=== PATIENT | male | born 1960 | race Two or more races ===

== ENCOUNTER → 2020-12-09 14:25 | Outpatient (BNV) | payer MEDICAID, SELFPAY | PROVIDERS: PCP Family Medicine; Visit Provider Internal Medicine Medical Oncology | DX: Z85.89 Personal history of malignant neoplasm of other organs and systems (principal); Z92.3 Personal history of irradiation | CPT/HCPCS: 99213; 99214 ==

== ENCOUNTER 2020-12-11 09:17 | Outpatient (REF) | payer MEDICAID, SELFPAY ==
[2020-12-11 10:54] LABS: MANUAL DIFF FLAG NO
[2020-12-11 11:01] LABS: Basophils Percent Auto 0.5 % (0-2); Eosinophils Absolute Auto 0.1 X10*3/uL (0.0-0.4); Eosinophils Percent Auto 0.9 % (0-4); Hematocrit 42.3 % (42-52); Hemoglobin 14.5 g/dl (14.0-18.0); Imm Gran Abs Auto 0.02 X10*3/uL (0.00-0.03); Imm Gran Pct Auto 0.3 % (0.0-0.4); Lymphocytes Absolute Auto 1.9 X10*3/uL (1.2-4.9); Lymphocytes Percent Auto 24.5 % (20-40); Mean Corpuscular HGB Conc 34.3 g/dl (31.0-36.0); Mean Corpuscular Hemoglobin 31.6 pg (27.0-33.0); Mean Corpuscular Volume 92.2 fL (80-98); Mean Platelet Volume 11.6 fL (9.4-12.4); Monocytes Absolute Auto 0.5 X10*3/uL (0.1-1.2); Monocytes Percent Auto 6.2 % (2-11); Neutrophils Absolute Auto 5.2 X10*3/uL (2.0-8.3); Neutrophils Percent Auto 67.6 % (45-73); Platelet Count 204 X10*3/uL (160-400); Red Blood Count 4.59 X10*6/uL (4.60-5.80); Red Cell Distribution Width 12.3 % (11.0-16.0); White Blood Count 7.6 X10*3/uL (4.8-10.8)
[2020-12-11 11:42] LABS: HBS Num1 89.49 mIU/mL (0-7.99); HBsAGNum1 0.19 S/CO (0.00-0.99); HIV AB/AG Nonreactive (Nonreactive); HIV Num 1 0.06 S/CO (0.00-0.99); Hepatitis B Surface Antigen Negative (Negative); ~Hepatitis B Surface Antibody REACTIVE (Nonreactive)
[2020-12-11 11:43] LABS: ~Hepatitis C Antibody Nonreactive (Nonreactive)
[2020-12-11 11:44] LABS: Bilirubin Direct 0.5 mg/dL (0.0-0.5); Cholesterol 98 mg/dL; HDL Cholesterol 30 mg/dL; LDL Cholesterol Calculated 24 mg/dl; Triglycerides 222 mg/dL
[2020-12-11 11:47] LABS: Estimated Average Glucose 266 mg/dL; Hemoglobin A1c % 10.9 %
[2020-12-11 11:49] LABS: Alanine Aminotransferase 29 U/L (0-40); Albumin Level 4.4 g/dL (3.5-5.0); Alkaline Phosphatase 89 U/L (39-117); Anion Gap 12 (12-20); Aspartate Amino Transferase 30 U/L (5-37); Bilirubin Total 1.2 mg/dL (0.0-1.0); Blood Urea Nitrogen 11 mg/dL (9-16); Calcium 9.2 mg/dL (8.4-10.2); Carbon Dioxide 31 mmol/L (22-29); Chloride 97 mmol/L (96-108); Estimated Glomerular Filt Rate 53; Glucose Random 361 mg/dL (60-115); Potassium 4.8 mmol/L (3.3-5.1); Sodium 135 mmol/L (135-145); Total Protein 7.6 g/dL (6.5-8.0)
[2020-12-11 11:56] LABS: Free T4 (Free Thyroxine) 0.99 ng/dL (0.71-1.85); Thyroid Stimulating Hormone 5.77 uIU/mL (0.32-4.0)
[2020-12-11 12:20] LABS: Glucose Urine UA >=1000 MG/DL (NEG); Leukocyte Esterase Urine NEG (NEG); Nitrite Urine NEG (NEG); PH 5.5 (5.0-8.0); Specific Gravity - Urine >= 1.030 (1.005-1.025); Urine Blood NEG (NEG); Urine Ketones NEG (NEG); Urine Protein TRACE MG/DL (NEG-TRACE)
[2020-12-11 12:22] LABS: Appearance Urine CLEAR; Color Urine DARK YELLOW
[2020-12-11 12:28] LABS: Mucus Urine TRACE /LPF; RBC Urine 0 /HPF (0); Squamous Epithelial Cell Urine TRACE /LPF; WBC Urine 0 /HPF (0-4)
[2020-12-11 13:22] LABS: Creatinine Urine 257.61 mg/dL; Microalbum/Creatinine Ratio Ur 28.7 ug/mg cr
[2020-12-12 09:21] LABS: Syphilis Screen Reactive (Nonreactive)
[2020-12-12 13:14] LABS: C. trachomatis RNA TMA NOT DETECTED (NOT DETECTED); N. gonorrhoeae RNA TMA NOT DETECTED (NOT DETECTED)
[2020-12-19 12:34] LABS: T.Pallidum Particle Agg Test Reactive (Nonreactive)
[2020-12-19 12:35] LABS: RPR Quantitative Non-Reactive (Nonreactive)
== END 2020-12-11 09:18 | disposition home or self-care (01) ==
LOC: HO.LAB 09:17
PROVIDERS: Absent Provider Internal Medicine Medical Oncology; PCP Family Medicine; Visit Provider Surgery Vascular Surgery
DX: I65.23 Occlusion and stenosis of bilateral carotid arteries (principal); E11.9 Type 2 diabetes mellitus without complications; E78.5 Hyperlipidemia, unspecified; I10 Essential (primary) hypertension; R39.15 Urgency of urination; C76.0 Malignant neoplasm of head, face and neck
CPT/HCPCS: 36415; 80053; 80061; 80076; 81001; 82043; 82248; 82306; 82378; 83036; 84439; 84443; 85025; 86592; 86706; 86780; 86803; 87086; 87340; 87389; 87491; 87591; 99202

== ENCOUNTER 2020-12-17 13:40 | Outpatient (REF) | payer MEDICAID, SELFPAY ==
--- NOTE | ~2020-12-17 | US_ITS ---
EXAMINATION: US EXTRACRANIAL CAROTID DUPLEX, BILATERAL CLINICAL INFORMATION: Stenosis of the bilateral carotid arteries COMPARISON: Carotid Doppler on 12/05/2017 TECHNIQUE: Real-time ultrasound and Doppler techniques (integrating B-mode 2-D vascular images, Doppler spectral analysis and color-flow Doppler imaging) were utilized to interrogate the extracranial carotid arteries, the vertebral arteries and proximal subclavian arteries bilaterally. The degree of stenosis is determined by criteria similar to NASCET. FINDINGS: Right Side: 1. There is heterogeneous atherosclerotic plaque seen in the bifurcation/proximal ICA region. 2. The common carotid artery PSV proximally is 107 cm/s and distally 111 cm/s. 3. The proximal internal carotid artery velocities are 50 cm/s systolic and 13.2 cm/s diastolic. 4. The proximal external carotid artery PSV is 185 cm/s. 5. The vertebral artery shows antegrade flow. 6. The subclavian artery waveforms are normal. Left Side: 1. There is heterogeneous atherosclerotic plaque seen in the bifurcation/proximal ICA region. 2. The common carotid artery PSV proximally is 138 cm/s and distally 84.5 cm/s. 3. The proximal internal carotid artery velocities are 107 cm/s systolic and 21.2 cm/s diastolic. 4. The proximal external carotid artery PSV is 216 cm/s. 5. The vertebral artery shows antegrade flow. 6. The subclavian artery waveforms are normal. US/US carotid duplex BI IMPRESSION: 1. RIGHT: Minimal, non-hemodynamically significant stenosis of the proximal right internal carotid artery corresponding to a 0-49% stenosis by velocity criteria. 2. LEFT: Minimal, non-hemodynamically significant stenosis of the proximal left internal carotid artery corresponding to a 0-49% stenosis by velocity criteria. 3. Stenosis of the bilateral external carotid arteries.
== END 2020-12-17 13:41 | disposition home or self-care (01) ==
LOC: HO.US 13:40
PROVIDERS: PCP Surgery; Visit Provider Surgery Vascular Surgery
DX: I65.23 Occlusion and stenosis of bilateral carotid arteries (principal)
CPT/HCPCS: 93880

== ENCOUNTER → 2021-01-08 13:11 | Outpatient (BNVA) | payer MEDICAID, SELFPAY | PROVIDERS: PCP Surgery; Visit Provider Surgery Vascular Surgery ==

== ENCOUNTER 2021-05-26 12:26 | Outpatient (REF) | payer MEDICAID, SELFPAY ==
--- NOTE | ~2021-05-26 | US_ITS ---
EXAMINATION: US PELVIS, LIMITED/FOLLOW UP CLINICAL INFORMATION: Lower abdominal pain COMPARISON: None TECHNIQUE: Grayscale and color imaging of the lower abdominal wall slightly to the right of midline area of pain FINDINGS: There is a defect in the abdominal wall measuring 0.5 cm and hypoechoic soft tissue measuring 1.2 x 1 x 0.3 cm questionable for small abdominal wall hernia. US/US pelvic limited IMPRESSION: Question small abdominal wall hernia.
== END 2021-05-26 12:27 | disposition home or self-care (01) ==
LOC: HO.US 12:26
PROVIDERS: Visit Provider Family Medicine
DX: R10.30 Lower abdominal pain, unspecified (principal); Z98.890 Other specified postprocedural states
CPT/HCPCS: 76857

== ENCOUNTER → 2021-07-06 15:24 | Outpatient (BNVA) | payer MEDICAID, SELFPAY | PROVIDERS: PCP Family Medicine; Referring Provider Family Medicine; Visit Provider Surgery ==

== ENCOUNTER 2021-07-24 16:15 | Outpatient (REF) | payer MEDICAID, SELFPAY ==
--- NOTE | ~2021-07-24 | CT_ITS ---
EXAMINATION: CT ABDOMEN AND PELVIS WITHOUT CONTRAST CLINICAL INFORMATION: Abdominal pain COMPARISON: None TECHNIQUE: Multidetector volumetric imaging was performed from the superior aspect of the liver through the pubic symphysis. Sagittal and coronal reformatted images were obtained on the technologist's workstation. This CT examination was performed using dose optimization techniques as appropriate, variously including the following: *Automated exposure control *Adjustment of mA and/or kV according to patient size (this includes techniques or standardized protocols for targeted exams where dose is matched to indication/reason for exam; i.e. extremities or head) *Use of iterative reconstruction technique DLP: 1 6-7 mGy-cm FINDINGS: LUNG BASES: The visualized lung bases are unremarkable. LIVER, GALLBLADDER, AND BILIARY TREE: The liver is normal in size, shape, and attenuation. No focal hepatic lesion or biliary ductal dilatation is present. The gallbladder is unremarkable with no evidence of radiopaque gallstones, gallbladder wall thickening, or obvious pericholecystic inflammatory changes. PANCREAS: Unremarkable. SPLEEN: Unremarkable. ADRENAL GLANDS: Unremarkable. KIDNEYS AND URETERS: There is a 1.5 cm low-attenuation lesion in the upper pole of the left kidney probably representing a cyst. No follow-up needed. Kidneys are otherwise unremarkable. BLADDER: Unremarkable. GASTROINTESTINAL TRACT: There is diverticulosis of the colon. No evidence of diverticulitis is seen. Small and large bowel is otherwise unremarkable. The appendix is not identified and may been removed. ABDOMINAL WALL: There are small supra umbilical and umbilical hernias containing fat. There are postsurgical changes to the anterior abdominal wall. LYMPH NODES: Normal. VASCULAR: Unremarkable. PELVIC VISCERA: The prostate gland is slightly enlarged. OSSEOUS STRUCTURES: There are degenerative changes of the spine. There is question of an old mild L1 vertebral body compression fracture versus Schmorl's node. CT/CT abdomen pelvis wo con IMPRESSION: Diverticulosis of the colon. No evidence of diverticulitis. Slightly enlarged prostate gland. Probable left renal cyst.
== END 2021-07-24 16:16 | disposition home or self-care (01) ==
LOC: HO.CT 16:15
PROVIDERS: Visit Provider Surgery
DX: R10.9 Unspecified abdominal pain (principal); G89.29 Other chronic pain
CPT/HCPCS: 74176

== ENCOUNTER → 2021-07-31 15:15 | Outpatient (BNVA) | payer MEDICAID, SELFPAY | PROVIDERS: PCP Family Medicine; Visit Provider Surgery ==

== ENCOUNTER 2022-04-08 12:54 | Outpatient (REF) | payer MEDICAID, SELFPAY ==
--- NOTE | ~2022-04-08 | CT_ITS ---
EXAMINATION: CT SOFT TISSUE NECK WITHOUT CONTRAST CLINICAL INFORMATION: History of head and neck carcinoma. COMPARISON: Neck CT dated 12/21/2019. TECHNIQUE: Helical imaging was performed in the axial plane with generation of coronal and sagittal reformatted images. This CT examination was performed using dose optimization techniques as appropriate, variously including the following: *Automated exposure control *Adjustment of mA and/or kV according to patient size (this includes techniques or standardized protocols for targeted exams where dose is matched to indication/reason for exam; i.e. extremities or head) *Use of iterative reconstruction technique DLP: 696 mGy-cm FINDINGS: There is mild asymmetric soft tissue prominence along the left posterolateral tongue base with a convex morphology which is slightly more conspicuous as compared to prior imaging. Further evaluation is limited on this noncontrast examination. The oral cavity appears normal. The laryngeal structures are unremarkable. No pathologically enlarged cervical lymph nodes are identified. Surgical clips visible in the right aspect of the neck from a presumed prior lou dissection. There are fatty changes in the right parotid tail and right submandibular gland. The left submandibular gland and left parotid gland appear normal. The thyroid gland is stable with an atrophic appearance of the right thyroid lobe. The imaged mediastinum is unremarkable. The visualized portions of the lungs are clear. No acute osseous abnormality is seen. The paranasal sinuses are fairly well aerated with a significant leftward nasal septal deviation. Chronic right nasal bone fracture noted. The mastoid air cells are clear. The imaged portions of the brain demonstrate no acute abnormality. Homogeneously increased density in the vitreous body of the left globe is suspected to be postprocedural. CT/CT soft tissue neck wo con IMPRESSION: Slightly more conspicuous asymmetric soft tissue prominence along the left posterolateral tongue base as compared to prior imaging; recommend correlation with findings on direct visual inspection in order to exclude an underlying lesion. No cervical adenopathy. Otherwise, chronic post treatment changes as seen on the previous study.
== END 2022-04-08 12:55 | disposition home or self-care (01) ==
LOC: HO.CT 12:54
PROVIDERS: PCP Family Medicine; Visit Provider Internal Medicine Medical Oncology
DX: C76.0 Malignant neoplasm of head, face and neck (principal)
CPT/HCPCS: 70490

== ENCOUNTER 2022-08-04 13:55 | Outpatient (REF) | payer MEDICAID, SELFPAY ==
[2022-08-04 14:33] LABS: Estimated Average Glucose 160 mg/dL; Hemoglobin A1c % 7.2 %
[2022-08-04 15:18] LABS: TSH reflex Free T4 4.48 uIU/mL (0.32-4.0)
[2022-08-04 16:57] LABS: Free T4 (Free Thyroxine) 0.86 ng/dL (0.71-1.85)
[2022-08-08 14:47] LABS: Vitamin D 25-OH, D2 <4 ng/mL; Vitamin D 25-OH, D3 48 ng/mL; Vitamin D 25-OH, Total 48 ng/mL (30-100)
== END 2022-08-04 13:56 | disposition home or self-care (01) ==
LOC: HO.LAB 13:55
PROVIDERS: PCP Family Medicine; Visit Provider Nurse Practitioner Family
DX: Z01.818 Encounter for other preprocedural examination (principal); R06.09 Other forms of dyspnea; E55.9 Vitamin D deficiency, unspecified; E11.9 Type 2 diabetes mellitus without complications
CPT/HCPCS: 36415; 82306; 83036; 84439; 84443; 99202

== ENCOUNTER → 2022-09-07 13:30 | Outpatient (BNVA) | payer MEDICAID, SELFPAY | PROVIDERS: PCP Family Medicine; Visit Provider Hospitalist | DX: R06.00 Dyspnea, unspecified (principal); C76.0 Malignant neoplasm of head, face and neck | CPT/HCPCS: 94618; 99202 ==

== ENCOUNTER 2022-09-28 12:34 | Outpatient (REF) | payer MEDICAID, SELFPAY ==
--- NOTE | 2022-09-28 17:36 | PFT_ITS ---
INDICATION: Dyspnea. SPIROMETRY: FEV1 to FVC of 65%, pre bronchodilator 72%. Post bronchodilators FEV1 of 3.2 L, which is 94% predicted and an FVC of 4.47 L, which is 101% predicted. The patient did have a significant response to bronchodilators noted. FEF 25-75 down to 52% predicted prior to bronchodilators. Maximum voluntary ventilation 80% predicted. LUNG VOLUMES: Total lung capacity 107% predicted with residual volume 140% predicted. Expiratory reserve volume 23% predicted secondary to an elevated BMI. DIFFUSION CAPACITY: DLCO 112% predicted. COMPARISONS: None. INTERPRETATION: There is a reversible obstructive ventilatory defect consistent with the diagnosis of asthma. The patient also has significant small airways disease, likely secondary to the severity of his asthma and also the elevated BMI. The maximum voluntary ventilation is within normal limits. Lung volumes do demonstrate significant air trapping due to the small airways disease and obstructive airway disease. There is also significant decreased expiratory reserve volume secondary to the elevated BMI. Diffusion capacity is within normal limits. Clinical correlation warranted. MD MARIBEL Estrada/LYNN / [phone]
== END 2022-09-28 12:35 | disposition home or self-care (01) ==
LOC: HO.RESP 12:34
PROVIDERS: PCP Family Medicine; Visit Provider Hospitalist
DX: R06.00 Dyspnea, unspecified (principal)
CPT/HCPCS: 94060; 94727; 94729

== ENCOUNTER → 2022-10-04 10:38 | Outpatient (BNVA) | payer MEDICAID, SELFPAY | PROVIDERS: PCP Family Medicine; Visit Provider Nurse Practitioner Family | DX: Z12.11 Encounter for screening for malignant neoplasm of colon (principal) | CPT/HCPCS: 99212 ==

== ENCOUNTER → 2022-12-09 09:38 | Outpatient (BNVA) | payer MEDICAID, SELFPAY | PROVIDERS: PCP Family Medicine; Referring Provider Nurse Practitioner Family; Visit Provider Internal Medicine Cardiovascular Disease | DX: Z01.810 Encounter for preprocedural cardiovascular examination (principal); R94.31 Abnormal electrocardiogram [ECG] [EKG] | CPT/HCPCS: 93005; 99202 ==

== ENCOUNTER → 2022-12-15 12:41 | Outpatient (REF) | payer MEDICAID, SELFPAY ==
--- NOTE | 2022-12-15 12:45 | CA_ITS ---
Transthoracic Echocardiogram Patient (Last, First, Middle): Maicol Fernandez, Gender: Male Date of : 1960 Age: 62 Procedure Date: 12/15/2022 Procedure Type: Transthoracic Echocardiogram Location: OP Height: 182. cm Weight: 108.86 kg BSA: 2.29 m2 Heart Rate: 74 bpm BP: 135 / 80 mmHg Treating Plant Operator: LENY Referring MD: Kevyn Jessica MD Jacker Feeder: Kevyn Jessica MD Symptoms: R94.31 - Abnormal electrocardiogram [ECG] [EKG] Study Quality: Fair ECG Rhythm: Sinus Conclusions: - 1. Normal LV systolic function with mild LVH with impaired relaxation filling pattern 2. Normal cardiac valvular Doppler 3. Moderately dilated aorta at the level of sinus of Valsalva and mildly dilated ascending aorta at 4.1 cm 4. No gross pericardial effusion Findings Left Ventricle Normal left ventricular size and systolic function. There is mildly increased left ventricular wall thickness. The visually estimated ejection fraction is between 55-60%. Spectral Doppler is indicative of an impaired relaxation filling pattern. E/E prime ratio is between 8 and 15 consistent with indeterminate filling pressures. Right Ventricle Normal right ventricular cavity size. There is normal right ventricular systolic function. Atria The left atrium is normal in size. There is no evidence of interatrial shunt. The right atrium is normal in size. Aortic Valve The aortic valve was not well visualized. There is no aortic valve stenosis. There is no aortic valve regurgitation. Mitral Valve Likely normal mitral valve structure and function. There is trace mitral valve regurgitation. There is no mitral valve stenosis. Pulmonic Valve The pulmonic valve was not well visualized. Tricuspid Valve Likely normal tricuspid valve structure and function. Tricuspid regurgitation envelope is inadequate for calculation of right ventricular systolic pressure. Normal right atrial pressure. Great Vessels The pulmonary artery was not well visualized. There is moderate dilatation of the sinuses of Valsalva measuring 4.60 cm and mild dilatation of the ascending aorta measuring 4.00 cm. Venous The inferior vena cava is normal in size and collapses greater than 50% with inspiration. Pericardium/Pleural There is no evidence of pericardial effusion. Prior Study Comparison Changes noted compared to prior study dated: 12/06/2017. Moderate dilatation of sinus of Valsalva and mildly dilated ascending aorta at 4.1 cm Measurements 2D Linear Measurements IVSd: 1.37 0.6-0.9/0.6-1.0 cm LVIDd: 4.25 3.9-5.3/4.2-5.9 cm LVIDd Index: 1.86 2.4-3.2/2.2-3.1 cm/m2 LVIDs: 2.91 2.0-3.6 cm LVPWd: 1.29 0.7-1.1 cm LA Diam: 3.80 2.7-3.8/3.0-4.0 cm LAIDs Index: 1.66 1.5-2.3 cm/m2 LV Mass: 263.30 67-162/88-224 g LV Mass Index: 114.98 43-95/49-115 g/m2 LVOT Diam: 2.10 3.0+(-)1.3 cm 2D Systolic Function EF 4C: 54.00 >55% EF 2C: 60.50 >55% EF BiP: 59.30 >55% Mitral Valve MV Pk E: 0.55 MV PK A: 0.79 MV Decel Time: 306.00 E/A: 0.70 E'Lateral: 6.09 E'Medial: 4.90 E/E' Med: 11.20 E/E' Lat: 9.00 PHT: 90.00 MVA PHT: 2.44 Decel Tripp: 1.79 Aortic Valve AoV Pk Kirk: 1.12 AoV Mn Kirk: 0.81 AoV VTI: 0.21 AoV Pk Grad: 5.00 Aov Mn Grad: 3.00 SHABNAM Cont.VTI: 3.09 LVOT LVOT Pk Kirk: 0.98 LVOT Mn Kirk: 0.72 LVOT VTI: 0.19 LVOT Pk Grad: 4.00 LVOT Mn Grad: 2.00 LVOT Diam: 2.10 LVOT Area: 3.46 Diastolic Function MV Pk E: 0.55 MV Pk A: 0.79 E/A: 0.70 E'Medial: 4.90 E/E' Med: 11.20 E' Laterial: 6.09 E/E' Lat: 9.00 Right Ventricle TAPSE (mm): 18.00 TVS' Kirk: 12.50 Tricuspid Valve RA Press: 3.00 Great Vessels Aorta Sinus of Valsalva: 4.60 2.0-3.5 cm Ao Asc: 4.00 2.1-3.4 cm Pulmonary Valve PV Pk Kirk: 1.09 Peak PV Grad: 5.00 Updated in Other Vendor System with Status of Final Kevyn Jessica MD electronically signed on 12/17/2022 3:27:03 PM with status of Final
== END ==
LOC: HO.CARD 12:41
PROVIDERS: Visit Provider Internal Medicine Cardiovascular Disease
DX: I10 Essential (primary) hypertension (principal); R94.31 Abnormal electrocardiogram [ECG] [EKG]
CPT/HCPCS: 93306

== ENCOUNTER 2022-12-16 15:31 | Outpatient (REF) | payer MEDICAID, SELFPAY ==
[2022-12-16 15:51] LABS: MANUAL DIFF FLAG NO
[2022-12-16 17:37] LABS: Basophils Percent Auto 0.4 % (0-2); Eosinophils Absolute Auto 0.2 X10*3/uL (0.0-0.4); Eosinophils Percent Auto 1.9 % (0-4); Hematocrit 41.2 % (42.0-52.0); Hemoglobin 13.8 g/dl (14.0-18.0); Imm Gran Abs Auto 0.02 X10*3/uL (0.00-0.03); Imm Gran Pct Auto 0.2 % (0.0-0.4); Lymphocytes Absolute Auto 2.2 X10*3/uL (1.2-4.9); Lymphocytes Percent Auto 26.4 % (20-40); Mean Corpuscular HGB Conc 33.5 g/dl (31.0-36.0); Mean Corpuscular Hemoglobin 29.9 pg (27.0-33.0); Mean Corpuscular Volume 89.2 fL (80.0-98.0); Mean Platelet Volume 11.9 fL (9.4-12.4); Monocytes Absolute Auto 0.5 X10*3/uL (0.1-1.2); Monocytes Percent Auto 6.2 % (2-11); Neutrophils Absolute Auto 5.5 x10*3/uL (2.0-8.3); Neutrophils Percent Auto 64.9 % (45-73); Platelet Count 246 X10*3/uL (160-400); Red Blood Count 4.62 X10*6/uL (4.60-5.80); Red Cell Distribution Width 12.7 % (11.0-16.0); White Blood Count 8.4 X10*3/uL (4.8-10.8)
[2022-12-16 18:14] LABS: Alanine Aminotransferase 27 U/L (0-40); Albumin Level 4.5 g/dL (3.5-5.0); Alkaline Phosphatase 89 U/L (39-117); Anion Gap 14 (12-20); Aspartate Amino Transferase 37 U/L (5-37); Bilirubin Total 0.6 mg/dL (0.0-1.0); Blood Urea Nitrogen 20 mg/dL (9-16); Calcium 9.5 mg/dL (8.4-10.2); Carbon Dioxide 30 mmol/L (22-29); Chloride 99 mmol/L (96-108); Cholesterol 178 mg/dL; Estimated Glomerular Filt Rate 43; Glucose Random 253 mg/dL (60-115); HDL Cholesterol 33 mg/dL; Sodium 139 mmol/L (135-145); Total Protein 7.5 g/dL (6.5-8.0); Triglycerides 487 mg/dL
[2022-12-16 18:20] LABS: Ferritin 467 ng/mL (20-250)
[2022-12-18 16:28] LABS: CRP High Sensitivity >10.0 mg/L
== END 2022-12-16 15:32 | disposition home or self-care (01) ==
LOC: HO.LAB 15:31
PROVIDERS: Internal Medicine Cardiovascular Disease; PCP Family Medicine; Visit Provider Internal Medicine Medical Oncology
DX: C76.0 Malignant neoplasm of head, face and neck (principal); I25.10 Atherosclerotic heart disease of native coronary artery without angina pectoris; I65.23 Occlusion and stenosis of bilateral carotid arteries; E78.5 Hyperlipidemia, unspecified
CPT/HCPCS: 36415; 80053; 80061; 82378; 82728; 85025; 86141

== ENCOUNTER → 2022-12-20 10:01 | Outpatient (REF) | payer MEDICAID, SELFPAY ==
--- NOTE | ~2022-12-20 | NM_ITS ---
Exercise Myocardial perfusion study Indication: Chest pain to evaluate for myocardial ischemia Technique: The patient was brought in for an exercise perfusion study on 12/20/2022. Patient performed exercise as per Heron protocol and was injected 35 mCi of sestamibi was given intravenously one target HR was achieved. Images were obtained using the SPECT gamma camera interlaced with the gating device. Images were obtained in supine position. Resting perfusion study was performed on 12/23/2022. Patient was administered 35 mCi of sestamibi intravenously at rest. Images were then obtained in supine position. Images obtained with and without CT attenuation. Total DLP 90 mGy-cm. Images were processed with the software and compared side to side in short axis, horizontal long axis and vertical long axis views. Findings: The stress perfusion study showed non attenuated images show mildly reduced uptake in the basal and mid inferior wall of the LV myocardium with remainder of the LV myocardium normally perfused. Attenuation corrected images show mildly reduced uptake in the apex of the LV myocardium. The gated study shows normal LV systolic function with calculated LVEF of 63%. LV cavity is normal in size. The gated study shows normal systolic wall thickening and contraction of all segments. There is no transient ischemic dilation. Resting study shows no change in perfusion pattern compared to stress perfusion study. Gating at rest reveals normal systolic wall motion with ejection fraction at 55%. The findings are consistent with normal myocardial perfusion. NM/NM cardiolite stress test Impression: 1. Normal myocardial perfusion 2. Gated LVEF is 63% 3. Transient ischemic dilatation not present Stress EKG is suggestive of ischemia
--- NOTE | 2022-12-20 10:03 | CA_ITS ---
Acquisition Time: 2022-12-20 10:47:41 Total Exercise Time: 00:06:00 Test Indications: R94.31 - Abnormal electrocardio Medications: Protocol: ELADIO Max HR: 157 BPM 100% of Pred: 156 BPM Max BP: 160/090 mmHG Max Work Load: 7.0 METS Exercise stress test with exercis 6 min of Eladio protocol, achieving 96% MPHR, with fatigue and need to stop, mild sob, no chest discomfort, without arrythmia, with artifact at peak however no clear EKG changes meeting criteria for ischemia, then in recovery there are ST changes noted inferiorly that meet criteria for ischemia with slow gradual improvement. Nuclear images pending. Test reviewed with Dr Jaramillo Referred By: Kevyn Jessica Overread By: HERO ORTIZ
== END ==
LOC: HO.CARD 10:01
PROVIDERS: Visit Provider Internal Medicine Cardiovascular Disease
DX: R07.9 Chest pain, unspecified (principal); I65.23 Occlusion and stenosis of bilateral carotid arteries; R94.31 Abnormal electrocardiogram [ECG] [EKG]
CPT/HCPCS: 78452; 93017; A9500

== ENCOUNTER 2022-12-22 12:46 | Outpatient (REF) | payer MEDICAID, SELFPAY ==
--- NOTE | ~2022-12-22 | XR_ITS ---
EXAMINATION: XR CHEST CLINICAL INFORMATION: Dyspnea. COMPARISON: 01/07/2016 chest radiographs. TECHNIQUE: 2 views of the chest were obtained. FINDINGS: No significant abnormality is noted involving the heart, lungs, mediastinum, bony thorax or soft tissues. XR/XR chest 2V IMPRESSION: No acute cardiopulmonary process.
== END 2022-12-22 12:47 | disposition home or self-care (01) ==
LOC: HO.XRAY 12:46
PROVIDERS: PCP Family Medicine; Visit Provider Hospitalist
DX: R06.00 Dyspnea, unspecified (principal)
CPT/HCPCS: 71046

== ENCOUNTER → 2023-05-12 13:38 | Outpatient (BNVA) | payer MEDICAID, SELFPAY | PROVIDERS: PCP Family Medicine; Referring Provider Family Medicine; Visit Provider Nurse Practitioner Family | DX: I77.810 Thoracic aortic ectasia (principal); I10 Essential (primary) hypertension; R94.31 Abnormal electrocardiogram [ECG] [EKG] | CPT/HCPCS: 93005; 99212 ==

== ENCOUNTER 2023-10-06 17:50 | Emergency (ER) | payer MEDICAID, SELFPAY ==
--- NOTE | ~2023-10-06 | CT_ITS ---
EXAMINATION: CT HEAD WITHOUT CONTRAST CLINICAL INFORMATION: High blood pressure. Headache. COMPARISON: 12/07/2017 TECHNIQUE: Contiguous axial imaging was performed from the skull base to vertex without intravenous administration of contrast. This CT examination was performed using dose optimization techniques as appropriate, variously including the following: *Automated exposure control *Adjustment of mA and/or kV according to patient size (this includes techniques or standardized protocols for targeted exams where dose is matched to indication/reason for exam; i.e. extremities or head) *Use of iterative reconstruction technique DLP: 803 mGy-cm FINDINGS: There is mild cerebral volume loss with prominence of the lateral and the third ventricles. The cortical sulci are widened appropriately. The fourth ventricle and basal cisterns are normally outlined. There is no acute territorial defect, hemorrhage or midline shift. The extra-axial spaces are unremarkable. Calvarium: Intact. Maxillofacial sinuses and mastoids: There is ethmoid, sphenoid and left maxillary sinus mucosal thickening. The mastoids are clear. A dense left globe is again seen. CT/CT head/brain wo IV con IMPRESSION: No acute intracranial pathology.
[2023-10-06 18:25] VITALS: BP 194/121; PULSE 84; RESP 20; TEMP 36.4; O2SAT 97; BMI 33.8
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
--- NOTE | 2023-10-06 18:28 | ECG_ITS ---
Test Reason : CHEST PAIN Blood Pressure : / mmHG Vent. Rate : 079 BPM Atrial Rate : 079 BPM P-R Int : 192 ms QRS Dur : 084 ms QT Int : 372 ms P-R-T Axes : 023 009 039 degrees QTc Int : 426 ms Normal sinus rhythm Normal ECG When compared with ECG of 08-JAN-2015 20:11, Nonspecific T wave abnormality, improved in Lateral leads Referred By: Amena Rojas Electronically Signed By:EAN JOY MD
[2023-10-06 20:02] VITALS: BP 191/114
[2023-10-06 20:17] LABS: MANUAL DIFF FLAG NO
[2023-10-06 20:22] LABS: Basophils Percent Auto 0.4 % (0-2); Eosinophils Absolute Auto 0.1 X10*3/uL (0.0-0.4); Eosinophils Percent Auto 1.5 % (0-4); Hematocrit 41.6 % (42.0-52.0); Hemoglobin 14.3 g/dl (14.0-18.0); Imm Gran Abs Auto 0.03 X10*3/uL (0.00-0.03); Imm Gran Pct Auto 0.4 % (0.0-0.4); Lymphocytes Absolute Auto 1.9 X10*3/uL (1.2-4.9); Lymphocytes Percent Auto 25.8 % (20-40); Mean Corpuscular HGB Conc 34.4 g/dl (31.0-36.0); Mean Corpuscular Hemoglobin 31.1 pg (27.0-33.0); Mean Corpuscular Volume 90.4 fL (80.0-98.0); Mean Platelet Volume 11.1 fL (9.4-12.4); Monocytes Absolute Auto 0.5 X10*3/uL (0.1-1.2); Neutrophils Absolute Auto 4.9 x10*3/uL (2.0-8.3); Neutrophils Percent Auto 64.9 % (45-73); Platelet Count 236 X10*3/uL (160-400); Prothrombin Time 12.3 SEC (11.1-13.3); Red Cell Distribution Width 12.5 % (11.0-16.0); White Blood Count 7.5 X10*3/uL (4.8-10.8)
[2023-10-06 20:29] LABS: Alanine Aminotransferase 22 U/L (0-40); Albumin Level 4.6 g/dL (3.5-5.0); Alkaline Phosphatase 89 U/L (39-117); Anion Gap 12 (12-20); Aspartate Amino Transferase 25 U/L (5-37); Bilirubin Total 0.5 mg/dL (0.0-1.0); Blood Urea Nitrogen 13 mg/dL (9-16); Calcium 9.8 mg/dL (8.4-10.2); Carbon Dioxide 27 mmol/L (22-29); Chloride 103 mmol/L (96-108); Estimated Glomerular Filt Rate > 60; Glucose Random 144 mg/dL (60-115); Potassium 3.9 mmol/L (3.3-5.1); Sodium 138 mmol/L (135-145); Total Protein 8.4 g/dL (6.5-8.0)
[2023-10-06 20:36] LABS: Troponin-I High Sensitivity 3.6 ng/L (<3.5-35.0)
[2023-10-06 20:51] LABS: Influenza A PCR NEGATIVE (Negative); Influenza B PCR NEGATIVE (Negative); Resp Syncy Virus RNA Qual PCR NEGATIVE (Negative); SARS COV2 PCR INHOUSE NEGATIVE (Negative)
[2023-10-06 21:14] VITALS: BP 197/130; PULSE 81; RESP 16; TEMP 36.3; O2SAT 96
--- NOTE | 2023-10-06 21:53 | PC.NURSE ---
Not in WR when called at this time. Per registration, pt left and has not returned. No answer on cell phone number in chart.
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
--- NOTE | 2023-10-06 22:13 | PC.NURSE ---
This RN able to make contact with pt. Per pt, he had to leave to take care of his family and is unable to return.
== END 2023-10-06 22:05 | disposition left against medical advice (07) ==
LOC: HO.ED 22:05
PROVIDERS: Registered Nurse Emergency; Emergency Provider Emergency Medicine; PCP Family Medicine
DX: R07.89 Other chest pain (principal); I10 Essential (primary) hypertension; R51.9 Headache, unspecified; Z79.899 Other long term (current) drug therapy; Z20.822 Contact with and (suspected) exposure to COVID-19; Z20.828 Contact with and (suspected) exposure to other viral communicable diseases
CPT/HCPCS: 0241U; 70450; 80053; 84484; 85025; 85610; 93005; 99283; 99284

== ENCOUNTER → 2023-10-06 18:28 | Outpatient (BNV) | payer MEDICAID, SELFPAY | PROVIDERS: Emergency Provider Emergency Medicine; PCP Family Medicine; Visit Provider Internal Medicine Cardiovascular Disease | DX: R07.9 Chest pain, unspecified (principal) | CPT/HCPCS: 93010 ==

== ENCOUNTER 2023-11-17 14:07 | Outpatient (REF) | payer MEDICAID, SELFPAY ==
[2023-11-17 16:13] LABS: MANUAL DIFF FLAG NO
[2023-11-17 16:23] LABS: Basophils Percent Auto 0.3 % (0-2); Eosinophils Absolute Auto 0.2 X10*3/uL (0.0-0.4); Eosinophils Percent Auto 2.1 % (0-4); Estimated Average Glucose 206 mg/dL; Hematocrit 42.2 % (42.0-52.0); Hemoglobin A1c % 8.8 % (<6.0); Imm Gran Abs Auto 0.02 X10*3/uL (0.00-0.03); Imm Gran Pct Auto 0.3 % (0.0-0.4); Lymphocytes Absolute Auto 2.1 X10*3/uL (1.2-4.9); Lymphocytes Percent Auto 28.9 % (20-40); Mean Corpuscular HGB Conc 33.2 g/dl (31.0-36.0); Mean Corpuscular Hemoglobin 30.3 pg (27.0-33.0); Mean Corpuscular Volume 91.3 fL (80.0-98.0); Mean Platelet Volume 11.8 fL (9.4-12.4); Monocytes Absolute Auto 0.5 X10*3/uL (0.1-1.2); Monocytes Percent Auto 7.5 % (2-11); Neutrophils Absolute Auto 4.3 x10*3/uL (2.0-8.3); Neutrophils Percent Auto 60.9 % (45-73); Platelet Count 254 X10*3/uL (160-400); Red Blood Count 4.62 X10*6/uL (4.60-5.80); Red Cell Distribution Width 12.4 % (11.0-16.0); White Blood Count 7.1 X10*3/uL (4.8-10.8)
[2023-11-17 16:43] LABS: Alanine Aminotransferase 24 U/L (0-40); Albumin Level 4.6 g/dL (3.5-5.0); Alkaline Phosphatase 83 U/L (39-117); Anion Gap 13 (12-20); Aspartate Amino Transferase 26 U/L (5-37); Bilirubin Direct 0.2 mg/dL (0.0-0.5); Bilirubin Total 0.7 mg/dL (0.0-1.0); Blood Urea Nitrogen 12 mg/dL (9-16); Calcium 10.3 mg/dL (8.4-10.2); Carbon Dioxide 31 mmol/L (22-29); Chloride 100 mmol/L (96-108); Cholesterol 163 mg/dL (<200); Estimated Glomerular Filt Rate > 60; Glucose Random 186 mg/dL (60-115); HDL Cholesterol 34 mg/dL (>40); LDL Cholesterol Calculated 79 mg/dL (<100); Potassium 4.5 mmol/L (3.3-5.1); Sodium 139 mmol/L (135-145); Total Protein 8.3 g/dL (6.5-8.0); Triglycerides 252 mg/dL (<150)
[2023-11-17 16:49] LABS: Creatinine Urine 165.19 mg/dL; Microalbum/Creatinine Ratio Ur 11.5 ug/mg cr (<30)
[2023-11-17 16:57] LABS: Vitamin B12 298 pg/mL (200-900)
[2023-11-17 17:00] LABS: Free T4 (Free Thyroxine) 0.76 ng/dL (0.71-1.85); Vitamin D 25-OH Total 31.6 ng/mL (>30)
[2023-11-21 05:44] LABS: LDL Cholesterol Direct 77 mg/dL (<100)
== END 2023-11-17 14:08 | disposition home or self-care (01) ==
LOC: HO.HHCL 14:07
PROVIDERS: Visit Provider Family Medicine
DX: E11.9 Type 2 diabetes mellitus without complications (principal); I10 Essential (primary) hypertension
CPT/HCPCS: 36415; 80048; 80061; 80076; 82043; 82306; 82570; 82607; 83036; 83721; 84439; 84443; 85025

== ENCOUNTER → 2023-12-14 12:38 | Outpatient (REF) | payer MEDICAID, SELFPAY ==
--- NOTE | 2023-12-14 12:41 | CA_ITS ---
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 The calculated ejection fraction is 55% by biplane method. - No obvious valvular pathology seen on this study. - There is mild dilatation of the sinuses of Valsalva measuring 4.50 cm and mild dilatation of the ascending aorta measuring 3.90 cm. Findings Procedure Information The quality of the study was technically difficult. The study quality is limited by patients body habitus. Left Ventricle Normal left ventricular cavity size. The left ventricular systolic function is normal. The calculated ejection fraction is 55% by biplane method. There is no evidence of regional wall motion abnormalities. Diastolic function is normal for age. There is moderate septal asymmetric hypertrophy. Right Ventricle Normal right ventricular cavity size and systolic function. Atria Both atria are normal in size. Aortic Valve There is a normal trileaflet aortic valve. There is no aortic valve stenosis. There is no aortic valve regurgitation. Mitral Valve There is no mitral valve regurgitation. There is no mitral valve stenosis. Pulmonic Valve The pulmonic valve is likely normal. Tricuspid Valve There is no tricuspid valve regurgitation. Tricuspid regurgitation envelope is inadequate for calculation of right ventricular systolic pressure. Great Vessels The aortic arch is normal in size. There is mild dilatation of the sinuses of Valsalva measuring 4.50 cm and mild dilatation of the ascending aorta measuring 3.90 cm. Venous The inferior vena cava is normal in size and collapses less than 50% with inspiration. Pericardium/Pleural There is no evidence of pericardial effusion. Prior Study Comparison Changes noted compared to prior study dated: 12/15/2022. Ascending aortic size smaller, could be technical. Recommendations, Care & Conclusions No obvious valvular pathology seen on this study. Measurements 2D Linear Measurements IVSd: 1.35 0.6-0.9/0.6-1.0 cm LVIDd: 5.00 3.9-5.3/4.2-5.9 cm LVIDd Index: 2.30 2.4-3.2/2.2-3.1 cm/m2 LVIDs: 3.09 2.0-3.6 cm LVPWd: 0.73 0.7-1.1 cm Ao Root: 1.00 2.1-3.5 cm LA Diam: 3.50 2.7-3.8/3.0-4.0 cm LAIDs Index: 1.61 1.5-2.3 cm/m2 LV Mass: 238.47 67-162/88-224 g LV Mass Index: 109.89 43-95/49-115 g/m2 LVOT Diam: 2.40 3.0+(-)1.3 cm 2D Systolic Function EF 4C: 51.80 >55% EF 2C: 58.50 >55% EF BiP: 54.90 >55% Mitral Valve MV Pk E: 0.86 MV PK A: 0.62 MV Decel Time: 196.00 E/A: 1.40 E'Lateral: 9.46 E'Medial: 6.96 E/E' Med: 12.40 E/E' Lat: 9.10 PHT: 57.00 MVA PHT: 3.86 Decel [place]: 4.40 Aortic Valve AoV Pk Kirk: 1.24 AoV Pk Grad: 6.00 SHABNAM: 4.52 LVOT LVOT Pk Kirk: 1.18 LVOT Mn Kirk: 0.78 LVOT VTI: 0.24 LVOT Pk Grad: 6.00 LVOT Mn Grad: 3.00 LVOT Diam: 2.40 LVOT Area: 4.52 Diastolic Function MV Pk E: 0.86 MV Pk A: 0.62 E/A: 1.40 E'Medial: 6.96 E/E' Med: 12.40 E' Laterial: 9.46 E/E' Lat: 9.10 Right Ventricle TAPSE (mm): 23.90 TVS' Kirk: 15.20 Tricuspid Valve RA Press: 8.00 Great Vessels Aorta Ao Root-2D: 1.00 2.0-3.7 cm Sinus of Valsalva: 4.50 2.0-3.5 cm Ao Asc: 3.90 2.1-3.4 cm Ao Arch: 2.70 Pulmonary Veins Pulm Vein S/D 1.30 Pulmonary Valve PV Pk Kirk: 1.00 Peak PV Grad: 4.00 Updated in Other Vendor System with Status of Final Colby Burks MD electronically signed on 12/16/2023 9:34:13 AM with status of Final
== END ==
LOC: HO.CARD 12:38
PROVIDERS: PCP Family Medicine; Visit Provider Internal Medicine Cardiovascular Disease
DX: I77.810 Thoracic aortic ectasia (principal)
CPT/HCPCS: 93306

== ENCOUNTER → 2023-12-14 12:41 | Outpatient (BNV) | payer MEDICAID, SELFPAY | PROVIDERS: PCP Family Medicine; Visit Provider Internal Medicine | DX: I51.7 Cardiomegaly (principal) | CPT/HCPCS: 93306 ==

== ENCOUNTER 2024-07-13 10:56 | Outpatient (REF) | payer OTHER, SELFPAY ==
--- NOTE | ~2024-07-13 | US_ITS ---
EXAMINATION: US SCROTUM CLINICAL INFORMATION: Testicular pain and swelling. COMPARISON: Scrotal ultrasound 12/05/2017 TECHNIQUE: A sonogram of the scrotum was performed assessing brown-scale appearance and color Doppler flow. Spectral Doppler analysis of the arterial and venous flow were performed in the testes bilaterally. FINDINGS: RIGHT: Right testicle measures 4.4 x 2.3 x 2.7 cm, volume 14 mL. No focal testicular parenchymal lesions are visualized. Spectral Doppler analysis of the arterial and venous flow is normal in the right testis. Large right hydrocele with minimal debris. Evaluation of the right epididymis slightly limited due to right hydrocele. Visualized right epididymis appears unremarkable LEFT: Left testicle measures 3.6 x 2.6 x 2.3 cm, volume 11 mL. No focal testicular parenchymal lesions are visualized. Spectral Doppler analysis of the arterial and venous flow is normal in the left testis. Left epididymal head is normal in size. Small left epididymal tail cyst is noted measuring 1.6 x 0.3 x 2.3 cm . No left varicocele is seen. Left epididymal Doppler flow is normal. Large left hydrocele with echogenic debris. US/US scrotum IMPRESSION: 1. No evidence of testicular torsion. 2. Small left epididymal cyst. 3. Large bilateral hydroceles with echogenic debris. Electronically signed by: Raza Hahn MD 07/13/2024 02:33 PM EDT
--- NOTE | ~2024-07-13 | US_ITS ---
EXAMINATION: US SCROTUM CLINICAL INFORMATION: Testicular pain and swelling. COMPARISON: Scrotal ultrasound 12/05/2017 TECHNIQUE: A sonogram of the scrotum was performed assessing brown-scale appearance and color Doppler flow. Spectral Doppler analysis of the arterial and venous flow were performed in the testes bilaterally. FINDINGS: RIGHT: Right testicle measures 4.4 x 2.3 x 2.7 cm, volume 14 mL. No focal testicular parenchymal lesions are visualized. Spectral Doppler analysis of the arterial and venous flow is normal in the right testis. Large right hydrocele with minimal debris. Evaluation of the right epididymis slightly limited due to right hydrocele. Visualized right epididymis appears unremarkable LEFT: Left testicle measures 3.6 x 2.6 x 2.3 cm, volume 11 mL. No focal testicular parenchymal lesions are visualized. Spectral Doppler analysis of the arterial and venous flow is normal in the left testis. Left epididymal head is normal in size. Small left epididymal tail cyst is noted measuring 1.6 x 0.3 x 2.3 cm . No left varicocele is seen. Left epididymal Doppler flow is normal. Large left hydrocele with echogenic debris. US/US scrotum doppler IMPRESSION: 1. No evidence of testicular torsion. 2. Small left epididymal cyst. 3. Large bilateral hydroceles with echogenic debris. Electronically signed by: Raza Hahn MD 07/13/2024 02:33 PM EDT
[2024-07-13 18:24] LABS: CT PCR NOT DETECTED (Not Detect.); NG PCR NOT DETECTED (Not Detect.)
== END 2024-07-13 10:57 | disposition home or self-care (01) ==
LOC: HO.HMGCX 10:56
PROVIDERS: PCP Family Medicine; Visit Provider Family Medicine
DX: N50.811 Right testicular pain (principal)
CPT/HCPCS: 76870; 87086; 87491; 87591; 93975

== ENCOUNTER → 2024-09-10 12:39 | Outpatient (BNVA) | payer OTHER, SELFPAY | PROVIDERS: PCP Family Medicine; Visit Provider Nurse Practitioner Family ==

== ENCOUNTER 2024-10-16 14:46 | Outpatient (REF) | payer OTHER, SELFPAY ==
--- NOTE | ~2024-10-16 | US_ITS ---
EXAMINATION: US SCROTUM CLINICAL INFORMATION: Testicular pain. COMPARISON: Scrotal ultrasound 07/13/2024 and 12/05/2017. TECHNIQUE: A sonogram of the scrotum was performed assessing brown-scale appearance and color Doppler flow. Spectral Doppler analysis of the arterial and venous flow were performed in the testes bilaterally. FINDINGS: RIGHT: Right testicle measures 4.6 x 2.3 x 2.5 cm, volume 13.7 mL. No focal testicular parenchymal lesions are visualized. Spectral Doppler analysis of the arterial and venous flow is normal in the right testis. Right epididymal head is normal in size. No right varicocele is seen. Right epididymal Doppler flow is normal. LEFT: Left testicle measures 4.2 x 2.5 x 2.7 cm, volume 14.8 mL. No focal testicular parenchymal lesions are visualized. Spectral Doppler analysis of the arterial and venous flow is normal in the left testis. Left epididymal head is normal in size. There is a small epididymal tail cyst measuring 2.3 x 0.4 x 1.1. This is benign. No left varicocele is seen. Left epididymal Doppler flow is normal. Of note, there are large bilateral right greater than left hydroceles with small amounts of specular debris present. US/US scrotum IMPRESSION: 1. Normal testes bilaterally. No torsion or mass. 2. Small epididymal tail cyst on the left. This is benign. 3. Large right greater than left mildly complex hydroceles. Electronically signed by: Mart Gold MD 10/23/2024 12:04 PM [facility]
== END 2024-10-16 14:47 | disposition home or self-care (01) ==
LOC: HO.US 14:46
PROVIDERS: PCP Family Medicine; Visit Provider Physician Assistant Medical
DX: N50.812 Left testicular pain (principal); N50.811 Right testicular pain
CPT/HCPCS: 76870

== ENCOUNTER → 2024-10-16 15:01 | Outpatient (BNV) | payer OTHER, SELFPAY | PROVIDERS: PCP Family Medicine; Visit Provider Radiology Diagnostic Radiology | DX: N50.819 Testicular pain, unspecified (principal) | CPT/HCPCS: 76870 ==

== ENCOUNTER 2024-11-14 14:34 | Outpatient (AMB) | payer OTHER, SELFPAY ==
[2024-11-14 14:49] VITALS: BP 146/84; PULSE 78; O2SAT 97; BMI 32.3
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
== END 2024-11-14 15:37 | disposition home or self-care (01) ==
PROVIDERS: PCP Family Medicine; Visit Provider Nurse Practitioner Family
DX: Z01.818 Encounter for other preprocedural examination (principal); Z12.11 Encounter for screening for malignant neoplasm of colon
CPT/HCPCS: 99024

== ENCOUNTER → 2024-11-14 14:34 | Outpatient (BNVA) | payer OTHER, SELFPAY | PROVIDERS: PCP Family Medicine; Visit Provider Nurse Practitioner Family | DX: Z12.11 Encounter for screening for malignant neoplasm of colon (principal) | CPT/HCPCS: 99212 ==

== ENCOUNTER → 2025-01-01 13:54 | Outpatient (REF) | payer OTHER, SELFPAY ==
--- NOTE | 2025-01-01 13:57 | CA_ITS ---
Transthoracic Echocardiogram Patient (Last, First, Middle): Maicol Fernandez, Gender: Male Date of : 1960 Age: 64 Procedure Date: 01/01/2025 Procedure Type: Transthoracic Echocardiogram Location: OP Height: 175.26 cm Weight: 102.06 kg BSA: 2.17 m2 Heart Rate: bpm BP: 118 / 70 mmHg Cargo Broker: JOSE Referring MD: Molly Burcigaa GENERAL MAINTENANCE ENGINEERDavina Symptoms: I77.810 - Thoracic aortic ectasia Study Quality: Adequate ECG Rhythm: Sinus Conclusions: - The left ventricular systolic function is normal. The calculated ejection fraction is 58% by biplane method. - No obvious valvular pathology seen on this study. - There is mild dilatation of the sinuses of Valsalva measuring 4.56 cm and mild dilatation of the ascending aorta measuring 3.90 cm. Findings Left Ventricle Normal left ventricular cavity size. There is normal left ventricular wall thickness. The left ventricular systolic function is normal. The calculated ejection fraction is 58% by biplane method. There is no evidence of regional wall motion abnormalities. Diastolic function is normal for age. Right Ventricle Mildly increased right ventricular cavity size. There is normal right ventricular systolic function. Atria Both atria are normal in size. Aortic Valve There is a normal trileaflet aortic valve. There is no aortic valve stenosis. There is no aortic valve regurgitation. Mitral Valve The mitral valve appears normal. There is no mitral valve regurgitation. There is no mitral valve stenosis. Pulmonic Valve The pulmonic valve is likely normal. Tricuspid Valve There is no tricuspid valve regurgitation. Tricuspid regurgitation envelope is inadequate for calculation of right ventricular systolic pressure. Great Vessels The aortic arch is normal in size. There is mild dilatation of the sinuses of Valsalva measuring 4.56 cm and mild dilatation of the ascending aorta measuring 3.90 cm. Venous The inferior vena cava is normal in size and collapses greater than 50% with inspiration. Pericardium/Pleural There is no evidence of pericardial effusion. Prior Study Comparison No significant change compared to prior study dated: 12/14/2023. Recommendations, Care & Conclusions No obvious valvular pathology seen on this study. Measurements 2D Linear Measurements IVSd: 1.00 0.6-0.9/0.6-1.0 cm LVIDd: 5.06 3.9-5.3/4.2-5.9 cm LVIDd Index: 2.33 2.4-3.2/2.2-3.1 cm/m2 LVIDs: 3.49 2.0-3.6 cm LVPWd: 1.04 0.7-1.1 cm LA Diam: 3.10 2.7-3.8/3.0-4.0 cm LAIDs Index: 1.43 1.5-2.3 cm/m2 LV Mass: 236.86 67-162/88-224 g LV Mass Index: 109.15 43-95/49-115 g/m2 LVOT Diam: 2.30 3.0+(-)1.3 cm 2D Systolic Function EF 4C: 60.30 >55% EF 2C: 57.60 >55% EF BiP: 58.00 >55% Mitral Valve MV Pk E: 0.72 MV PK A: 0.68 MV Decel Time: 280.00 E/A: 1.10 E'Lateral: 9.25 E'Medial: 6.20 E/E' Med: 11.60 E/E' Lat: 7.80 PHT: 82.00 MVA PHT: 2.68 Decel Coos: 2.57 Aortic Valve AoV Pk Kirk: 1.47 AoV Mn Kirk: 0.92 AoV VTI: 0.31 AoV Pk Grad: 9.00 Aov Mn Grad: 4.00 SHABNAM Cont.VTI: 3.60 LVOT LVOT Pk Kirk: 1.30 LVOT Mn Kirk: 0.83 LVOT VTI: 0.27 LVOT Pk Grad: 7.00 LVOT Mn Grad: 3.00 LVOT Diam: 2.30 LVOT Area: 4.15 Diastolic Function MV Pk E: 0.72 MV Pk A: 0.68 E/A: 1.10 E'Medial: 6.20 E/E' Med: 11.60 E' Laterial: 9.25 E/E' Lat: 7.80 Right Ventricle TAPSE (mm): 32.10 TVS' Kirk: 14.90 Tricuspid Valve RA Press: 3.00 Great Vessels Aorta Sinus of Valsalva: 4.56 2.0-3.[address] Ridge: 3.13 1.7-3.4 cm Ao Asc: 3.90 2.1-3.4 cm Ao Arch: 3.40 Updated in Other Vendor System with Status of Final Colby Burks MD electronically signed on 01/02/2025 12:30:21 PM with status of Final
--- OUTSIDE RECORDS SUMMARY | 2025-01-01 17:22 | XMS_ITS | Encounter Summary ---
Author Organization [employer] Address [address] [place] [address] Care Team Providers Care Rn Corrections Name Role Phone Beckie Danielle DO Primary Care Provider + [phone] Reason for Visit * Reason Comments Med Refill Encounter Details Date Type Department Care Team ([facility] st Contact Info) Description 09/10/2024 Refill [facility] MEDICINE [address], [place] [phone] Beckie Danielle DO [address], [place] [phone] Type 2 diabetes mellitus without complication, without long-term current use of insulin ([facility]) Social History Tobacco Use Types Packs/Day Years Used Date Smoking Tobacco: Never Passive Smoke Exposure: Never Smokeless Tobacco: Never Alcohol Use Standard Drinks/Week Comments Never 0 (1 standard drink = 0.6 oz pur e alcohol) Depression Answer Date Recorded Patient Health Questionnaire-9 Score 0 01/07/2023 Housing Stability Answer Date Recorded What is your housing situation today? I have tabithashalom laird 08/30/[address] you li ve. Do you have problems with any of the following? None of the above 08/30/2023 Food Insecurity Answer Date Recorded Within the past 12 months, y ou worried that your food would run out before you got money to buy more: Never True 08/30/2023 Within the past 12 months,th e food you bought just didn't last and you didn't have enough money to get more: Never True Transportation Answer Date Recorded In the past 12 months, has l ack of transportation kept you from medical appts, meetings, work or from getting things needed for daily living? No 08/30/2023 Utilities Answer Date Recorded In the past 12 months, has t he electric, gas, oil or water company threatened to shut off services in your home? No 08/30/2023 Depression Answer Date Recorded Patient Health Questionnaire-2 Score 0 01/07/2023 Internet Access Answer Date Recorded Internet Access Q1 Yes 07/09/2024 Internet Access Q2 Not on file 07/09/2024 Sex and Gender Information Value Date Recorded Sex Assigned at Male 09/06/2022 10:17 AM EDT Legal Sex Male 10:17 AM EDT Gender Identity Male 09/06/2022 10:17 AM EDT Sexual Orientation Choose not to disclose 2021 10:17 AM EDT documented as of this encounter Plan of Treatment Upcoming Encounters Date Type Department Care Team (Late st Contact Info) Description 01/04/2025 11:00 AM EST Office Visit [facility] MEDICINE [address] [place] [address] Beckie Danielle DO [address] [place] [address] documented as of this encounter Goals Goal Patient Goal Type Associated Problems Recent Progress Patient-Stated? Author Blood Pressure < 140/90 Blood Pressure 123/84(2023 9:06 AM EDT) No Dellogono, Rainer, PharmD Record your blood pressure once per day Blood Pressure No Puia, Mandi, PharmD Patient will adhere to medication regimen General No Puia, Mandi, PharmD Hemoglobin A1c < 7 Result Component 7.9( 11:24 AM EDT) No Dellogono, Rainer, PharmD Record your blood sugar as directed Result Component No Puia, Mandi, PharmD documented as of this encounter Visit Diagnoses Diagnosis Type 2 diabetes mellitus without complication, without long-term current use of insulin ([facility]) documented in this encounter Additional Health Concerns Assessment Noted Time PHQ-9 Depression Total Score: 0 01/08/20 10:31 AM EST documented as of this encounter Care Teams Rn Corrections Relationship Specialty Start Date End Date Beckie Danielle DO [address] [place] [address] PCP - General Family Medicine 11/28/13 documented as of this encounter
--- OUTSIDE RECORDS SUMMARY | 2025-01-01 17:22 | XMS_ITS | Clinical Summary ---
Author Organization [facility] [facility] [employer] Address [address] [place] [address] 7t [place] [address] Care Team Providers Care Beam Worker Name Role Phone Beckie Danielle DO Primary Care Provider Allergies No known active allergies Medications * This document contains information received from the source organization and may not represent a complete record from that organization. Alcohol Swabs (Alcohol Prep) 70 % pads USE 1 SWAB BY TOPICAL ROUTE 2 TIMES EVERY DAY 3 Active folic acid (Folvite) 1 MG tablet TAKE 1 TABLET BY MOUTH EVERY DAY 2 Active rosuvastatin (Crestor) 20 MG tablet Take 20 mg by mouth Once daily. 3 Active latanoprost (Xalatan) 0.005 % ophthalmic solution INSTILL 1 DROP INTO LEFT EYE EVERY EVENING 3 Active fluticasone (Flonase) 50 MCG/ACT nasal sprayIndications: Seasonal allergic rhinitis, unspecified trigger SPRAY 2 SPRAYS INTO EACH NOSTRIL EVERY DAY 48 mL 1 3 Active lisinopril 40 MG tabletIndications :Essential hypertension TAKE 1 TABLET BY MOUTH EVERY DAY IN THE MORNING 90 tablet 3 4 Active Aspirin Low Dose 81 MG EC tabletIndications :Type 2 diabetes mellitus with other specified complication, unspecified whether usp insulin use (CMS/HCC) TAKE 1 TABLET BY MOUTH EVERY DAY 90 tablet 3 4 Active amLODIPine (Norvasc) 10 MG tablet TAKE 1 TABLET BY MOUTH EVERY DAY 90 tablet 1 4 Active metFORMIN XR (Glucophage-XR) 500 MG 24 hr tabletIndications :Type 2 diabetes mellitus without complication, without long-term current use of insulin (CMS/HCC) Take 1 tablet (500 mg) by mouth with breakfast AND 2 tablets (1,000 mg) with evening meal. Do not crush, chew, or split.. 90 tablet 11 4 Active Blood Glucose Monitoring Suppl (FreeStyle Lite) deviceIndications :Type 2 diabetes mellitus without complication, without long-term current use of insulin (CMS/[facility]) Inject 1 each under the skin 2 times daily. Use to test blood sugar as directed 1 each 4 Active levothyroxine (Synthroid, Levoxyl) 75 MCG tablet TAKE 1 TABLET BY MOUTH DAILY BEFORE BREAKFAST 90 tablet 1 4 Active tadalafil (Cialis) 20 MG tablet TAKE 1 TABLET BY MOUTH 1/2 TO 1 HOUR BEFORE SEXUAL ACTIVITY 4 Active metoprolol succinate XL (Toprol-XL) 50 MG 24 hr tabletIndications :Essential hypertension Take 1 tablet (50 mg) by mouth Once per day. Do not crush or chew. 90 tablet 5 Active glucose blood (FREESTYLE LITE) test stripIndications: Type 2 diabetes mellitus without complication, without long-term current use of insulin (CMS/HCC) Use to test blood sugar twice daily as directed 100 strip 11 5 Active FreeStyle lancetsIndication s:Type 2 diabetes mellitus without complication, without long-term current use of insulin (CMS/[facility]) 1 each by Other route 2 times daily. Use to test blood sugar twice daily as directed 100 each 11 5 Active Dulaglutide (Trulicity) 1.5 MG/0.5ML solution auto-injector Inject 1.5 mg under the skin 1 (one) time per week. 2 mL 11 5 Active Active Problems Problem Noted Date Diagnosed Date Erectile dysfunction 12/02/2023 Assessment & Plan (12/02/2023 9:53 AM EST): Reportedly not improving w Viagra Explained it could be related to DM Refer to urology Hydrocele in adult 12/02/2023 Overview (12/02/2023): Scrotal US on 2018 ([facility]) Assessment & Plan (12/02/2023 2:20 PM EST): Scrotal US on 2018 did not show addtl abnormalities. Patient can fu with urology if he wants surgical resection. I explained that it is a benign condition. History of squamous cell carcinoma 08/30/2023 Stenosis of right carotid artery 01/07/2023 Chronic constipation 01/07/2023 Assessment & Plan (12/02/2023 9:54 AM EST): Use bisacodyl suppository Continue miralax and colace Refer to GI, needs fu screen colonoscopy this yr as well Elevated TSH 01/07/2023 Healthcare maintenance 01/07/2023 Diverticulosis 10/08/2015 Essential hypertension 10/08/2015 Hyperlipidemia 10/08/2015 BMI 33.0-33.9,adult 10/08/2015 Obstructive sleep apnea 10/08/2015 Major depression, recurrent, chronic 10/08/2015 Type 2 diabetes mellitus wit hout complication, without long-term current use of insulin 10/08/2015 Vitamin D deficiency 10/08/2015 Resolved Problems Problem Noted Date Diagnosed Date Resolved Date Lower urinary tract symptoms (LUTS) 12/02/2023 07/13/2024 Assessment & Plan (12/02/2023 10:56 AM EST): Pt seems to have enlarged prostate, given it is associated to ED I will refer to urology Candidiasis of perineum 12/02/2023/2 01/2024 Assessment & Plan (12/02/2023 9:55 AM EST): Recurrent, most likely due to uncontrolled DM Counseled to control DM, avoid and discriminated antibiotic cues, keep are clean and dry Use clotrimazole prn rash Use nystatin powder to prevent rash Testicular pain, right 12/02/202305/29 Assessment & Plan (12/02/2023 9:56 AM EST): Chronic issue, apparently related to hydrocele. Testicular US 2018 was done and did not show any other abnormalities, see above Encounter for colorectal cancer screening 12/02/2023 05/29/2024 Assessment & Plan (12/02/2023 9:56 AM EST): Refer to colonoscopy Encounters Date Type Department Care Team Description 01/01/2025 Travel 12/06/2024 Refill [facility] [address] [place] [address] Beckie Danielle DO Type 2 diabetes mellitus without complication, without long-term current use of insulin ([facility]) 11/23/2024 Telephone [facility] [address] [place] [phone] Rowan Maurer MA Recall Appt. 11/23/2024 Telephone [facility] [address] [place] [phone] Rowan Maurer MA Recall Appt. 11/23/2024 Travel 11/21/2024 Refill [facility] [place] [phone] Beckie Danielle DO Essential hypertension; Type 2 diabetes mellitus without complication, without long-term current use of insulin ([facility]) 11/21/2024 Telephone [facility] [address] [place] [address] Mandi Murdock, PharmD 10/23/2024 Telephone [facility] [place] [phone] Beckie Danielle DO 10/23/2024 Telephone [facility] [place] [address] Beckie Danielle DO Appointment Request 10/22/2024 Refill [facility] [place] [address] Beckie Danielle DO from Last 3 Months Immunizations Name Administration Dates Next Due Hep B, adult 10/27/2017,10/08/2015,07/29/2014 Influenza injectable quadriv alent IIV4 with preservative 10/27/2017,10/08/2015 Influenza injectable quadriv alent preservative free 09/06/2022,10/12/2021,11/02/2019,11/16 Influenza, IIV3, injectable 07/29/2014 Pfizer Covid-19 Vaccine 12+ paul-sucrose (Treadwell Cap) 03/16/2022 Pneumococcal Conjugate PCV 20 06/08/2023 Pneumococcal Polysaccharide PPSV23 07/29/2014 RSV Bivalent 07/23/2024 Tdap 07/29/2014 Zoster, Recombinant 07/23/2024,06/08/2023 Social History Tobacco Use Types Packs/Day Years Used Date Smoking Tobacco: Never Passive Smoke Exposure: Never Smokeless Tobacco: Never Tobacco Cessation:Counseling Given: Not Answered Alcohol Use Standard Drinks/Week Comments Never 0 [...] not to disclose 2021 10:17 AM EDT Last Filed Vital Signs Vital Sign Reading Time Taken Comments Blood Pressure 123/84 07/13/2024 9:06 AM EDT Pulse 68 07/13/2024 9:06 AM EDT Temperature 36 ??C (96.8 ??F) 07/13/2024 9:06 AM EDT Respiratory Rate 19 07/13/2024 9:06 AM EDT Oxygen Saturation 96% 07/13/2024 9:06 AM EDT Inhaled Oxygen Concentration - - Weight 99.2 kg (218 lb 9.6 oz) 07/13/2024 9:06 A M EDT Height 175.3 cm (5' 9 ) 07/13/2024 9:06 AM EDT Body Mass Index 32.28 07/13/2024 9:06 AM EDT Plan of Treatment Upcoming Encounters Date Type Department Care Team (Late st Contact Info) Description 01/04/2025 11:00 AM EST Office Visit [facility] [address] [place] [address] Beckie Danielle DO [address] [place], [place] [phone] Health Maintenance Due Date Last Done Comments CT Colonography 1958 Colonoscopy 1958 Colorectal Cancer Screening 1960 FIT DNA/Cologuard 1958 FIT 1958 FOBT 1960 Sigmoidoscopy 1958 Diabetes: Foot Exam 1968 Eye Exam 1968 Alcohol/Substance Use Screening 1970 Depression Screening 01/08/2024 01/07/2023, 01/08/20 COVID-19 Vaccine ( season) 2024 09/06/2022, 03/16/2022, 01/28/2021 Influenza Vaccine (#1) 2024 , 10/12/2021, 11/02/2019, Additional history exists DTaP/Tdap/Td Vaccines (2 - Td or Tdap) 07/29/2024 07/29/2014 Diabetes: Hemoglobin A1C 08/29/202405/29/2 024, 11/17/2023, 08/30/2023, Additional history exists Diabetes: Urine Protein Screening 11/17/2024 11/17/2023, 10/26/2021, 12/11/2020 Lipid Panel 11/17/2024 11/17/2023, 11/07, 12/16/2022, Additional history exists SDOH Screening 05/21/2025 05/21/2024 Tobacco Screening 07/13/2025 07/13/2024 Hepatitis B Vaccines Completed 10/27/2017, 10/08/2015, 07/29/2014 Hepatitis C Screening Completed 01/07/2023 , 10/26/2021, 12/11/2020, Additional history exists Pneumococcal Vaccine: 50+ Years Completed 06/08/2023, 07/29/2014 RSV Patients and Patients Aged 60 years or older Completed 07/23/2024 Zoster Vaccines Completed 07/23/2024, 06/08/2023 HIB Vaccines Aged Out No longer eligi ble based on patient's age to complete this topic HPV Vaccines Aged Out No longer eligi ble based on patient's age to complete this topic Hepatitis A Vaccines Aged Out No long er eligible based on patient's age to complete this topic IPV Vaccines Aged Out No longer eligi ble based on patient's age to complete this topic Meningococcal Vaccine Aged Out No shoshana jenny eligible based on patient's age to complete this topic RSV under 20 months Aged Out No longe r eligible based on patient's age to complete this topic Rotavirus Vaccines Aged Out No longer eligible based on patient's age to complete this topic Goals Goal Patient Goal Type Associated Problems Recent Progress Patient-Stated? Author Blood Pressure < 140/90 Blood Pressure 123/84(2023 9:06 AM EDT) No Rainer Bishop, PharmJoao Record your blood pressure once per day Blood Pressure No Mandi Murdock PharmJoao Patient will adhere to medication regimen General No Mandi Murdock PharmJoao Hemoglobin A1c < 7 Result Component 7.9( 11:24 AM EDT) No Rainer Bishop PharmJoao Record your blood sugar as directed Result Component No Mandi Murdock PharmD Procedures Procedure Name Priority Date/Time Associated Diagnosis Comments US SCROTUM Routine 10/16/2024 3:01 PM EST POCT GLYCATED HEMOGLOBIN, TOTAL Routine 05/29/2024 11:24 AM EDT Type 2 diabetes mellitus without complication, without long-term current use of insulin (CMS/HCC) ALBUMIN, RANDOM URINE W/CREATININE Routine 11/17/2023 2:10 PM EST LIPID PANEL, STANDARD Routine 11/17/2023 2:10 PM EST Type 2 diabetes mellitus without complication, without long-term current use of insulin (CMS/HCC) HEPATITIS C AB W/RFL RNA, PCR W/RFL GENOTYPE,LIPA Routine 01/07/2023 11:37 AM EST Type 2 diabetes mellitus without complication, without long-term current use of insulin (CMS/HCC) from Last 3 Months or Most Recently Relevant to Health Maintenance Results * US Scrotum (10/16/2024 3:01 PM EST) Anatomical Region Laterality Modality Body Ultrasound 10/16/2024 3:01 PM EST Narrative 10/23/2024 12:07 PM EST ? [facility] ?[address] ?[place] [address] ? Ultrasound Report ? Signed ? Patient: Maicol Fernandez ?MR#: [id number] ?? 6 ? : 1960 ?Acct:[id number] ? Age/Sex: 63 / M ?ADM Date: 10/16/24 ? Loc: HO.US ? Attending Dr: Venancio JESUS ? Ordering Physician: Venancio Mathew ?? Date of Service: 10/16/24 ?? Procedure(s): US scrotum ?? Accession Number(s): [id number] ? cc: Beckie Danielle DO; Venancio Mathew ? EXAMINATION: ?? US SCROTUM ? CLINICAL INFORMATION: ?? Testicular pain. ? COMPARISON: ?? Scrotal ultrasound 07/13/2024 and 12/05/2017. ? TECHNIQUE: ?? A sonogram of the scrotum was performed assessing treadwell-scale appearance ?? and color Doppler flow. Spectral Doppler analysis of the arterial and ?? venous flow were performed in the testes bilaterally. ? FINDINGS: ? RIGHT: Right testicle measures 4.6 x 2.3 x 2.5 cm, volume 13.7 mL. No ?? focal testicular parenchymal lesions are visualized. Spectral Doppler ?? analysis of the arterial and venous flow is normal in the right testis. ? Right epididymal head is normal in size. No right varicocele is seen. ?? Right epididymal Doppler flow is normal. ? LEFT: Left testicle measures 4.2 x 2.5 x 2.7 cm, volume 14.8 mL. No ?? focal testicular parenchymal lesions are visualized. Spectral Doppler ?? analysis of the arterial and venous flow is normal in the left testis. ? Left epididymal head is normal in size. There is a small epididymal ?? tail cyst measuring 2.3 x 0.4 x 1.1. This is benign. No left varicocele ?? is seen. Left epididymal Doppler flow is normal. ? Of note, there are large bilateral right greater than left hydroceles ?? with small amounts of specular debris present. ? US/US scrotum ?? IMPRESSION: ?? 1. Normal testes bilaterally. No torsion or mass. ?? 2. Small epididymal tail cyst on the left. This is benign. ?? 3. Large right greater than left mildly complex hydroceles. ? Electronically signed by: ??Mart Gold MD ??10/23/2024 12:04 PM EST RP ? Dictated By: ?Mart Gold MD ? Signed By: ?<Electronically signed by Mart Gold MD in OV> ?10/23/24 1204 ? DD/ 1501 ? TD/TT: 10/16/24 1514 ? Tool Design Drafter: ? Procedure Note Gabino Aranda - 10/23/[address] [address] Ultrasound Report Signed Patient: Onofre Fernandez#: [id number] 6 : 9Acct:[id number] Age/Sex: 63 / MADM Date: 10/16/24 Loc: HO.US Attending Dr: Venancio JESUS Ordering Physician: Venancio Mathew Date of Service: 10/16/24 Procedure(s): US scrotum Accession Number(s): [id number] cc: Beckie Danielle DO; Venancio Mathew EXAMINATION: US SCROTUM CLINICAL INFORMATION: Testicular pain. COMPARISON: Scrotal ultrasound 07/13/2024 and 12/05/2017. TECHNIQUE: A sonogram of the scrotum was performed assessing treadwell-scale appearance and color Doppler flow. Spectral Doppler analysis of the arterial and venous flow were performed in the testes bilaterally. FINDINGS: RIGHT: Right testicle measures 4.6 x 2.3 x 2.5 cm, volume 13.7 mL. No focal testicular parenchymal lesions are visualized. Spectral Doppler analysis of the arterial and venous flow is normal in the right testis. Right epididymal head is normal in size. No right varicocele is seen. Right epididymal Doppler flow is normal. LEFT: Left testicle measures 4.2 x 2.5 x 2.7 cm, volume 14.8 mL. No focal testicular parenchymal lesions are visualized. Spectral Doppler analysis of the arterial and venous flow is normal in the left testis. Left epididymal head is normal in size. There is a small epididymal tail cyst measuring 2.3 x 0.4 x 1.1. This is benign. No left varicocele is seen. Left epididymal Doppler flow is normal. Of note, there are large bilateral right greater than left hydroceles with small amounts of specular debris present. US/US scrotum IMPRESSION: 1. Normal testes bilaterally. No torsion or mass. 2. Small epididymal tail cyst on the left. This is benign. 3. Large right greater than left mildly complex hydroceles. Electronically signed by: Mart Gold MD 10/23/2024 12:04 PM [facility] Dictated By: Mart Gold MD Signed By: <Electronically signed by Mart Gold MD in OV> 10/23/24 1204 DD/ 1501 TD/TT: 10/16/24 1514 Tool Design Drafter: [facility] External Provider IMG US PROCEDURES Final Result * (ABNORMAL) POCT HGB A1C (05/29/2024 11:24 AM EDT) Hemoglobin A1C 7.9(A) 4.0 - 6.0 % QC Media Lot # [id number] Lot# Expiration Date [id number] Blood 05/29/2024 11:2 4 AM EDT Beckie Lolis DO POINT OF CARE TEST ENTER/PRIYA T ORDERABLES Final Result * Albumin, Random Urine W/Creatinine (11/17/2023 2:10 PM EST) Creatinine, Urine 165.19 mg/dL [facility] Microalbumin Urine 19.0 mg/L [facility] Microalbum Creatinine Ratio Ur 11.5 <30 ug/mg cr [facility] Comment:Albumin/Creatinine R atio Reference Ranges: Normal: < 30 ug/mg creatinine Microalbuminuria: 30 - 300 ug/mg creatinineClinical Albuminuria: > 300 ug/mg creatinine 11/17/2023 2:10 PM EST 11/17/2023 4:07 PM EST Beckie Danielle DO LAB URINE ORDERABLES Final R esult [facility] [address] [place] [phone] * (ABNORMAL) Lipid Panel, Standard (11/17/2023 2:10 PM EST) Triglycerides 252(H) <150 mg/dL [facility] Comment:Desirable Triglyceri de: less than 150 mg/dLBorderline High Triglyceride 150-199 mg/dLHigh Triglyceride: 200-499 mg/dLVery High Triglyceride: greater than or equal to 5OO mg/dL Cholesterol 163 <200 mg/dL [facility] Comment:Desirable Cholestero l: less than 200 mg/dLBorderline High Cholesterol: 200-239 mg/dLHigh Cholesterol: greater than 239 mg/dL LDL Cholesterol Calculated 79 <100 mg/dL [facility] Comment:Desirable LDL: less than 100 mg/dLNear Optimal/Above Optimal LDL: 110- 129 mg/dLBorderline High LDL: 130-159 mg/dLHigh LDL: 160-189 mg/dLVery High LDL: greater than or equal to 190 mg/dL HDL Cholesterol 34(L) >40 mg/dL [facility] Comment:Desirable HDL: great er than 40 mg/dL Note: This HDL assay may give artificially low results in patients with liver disease. Blood Venous blood specimen / Unknown 11/17/2023 2:10 PM EST 11/17/2023 4:09 PM EST Beckie Lolis [employer] LAB BLOOD ORDERABLES Final R esult Performing Organization Address City/[facility]/ZIP Co de Phone Number [facility] [address] [place] [address] [phone] * Hepatitis C Antibody with Reflex to HCV RNA,PCR w/Reflex to Genotype, LiPA (01/07/2023 11:37 AM EST) Hepatitis C Antibody NON-REACT ALVINA NON-REACT ALVINA [facility] [place] [facility] Index 0.03 <1.00 [facility] [place] [facility] Comment: HCV antibody was non-reactive. There is no laboratory evidence of HCV infection. In most cases, no further action is required. However, if recent HCV exposure is suspected, a test for HCV RNA (test code 34644) is suggested. For additional information, please refer to http://education.Snapwiz/faq/XQX497 (This link is being provided for informational/ educational purposes only.) 01/07/2023 11:3 7 AM EST 01/07/2023 11:38 AM EST Narrative [facility] - 01/10/2023 12:40 PM EST FASTING:YES PATIENT UNABLE TO VOID; ADVISED TO RETURN FOR COLLECTION. FASTING: YES Beckie Lolis [employer] LAB BLOOD ORDERABLES Final R esult [facility] [address] [facility], [address] [place] [address] [employer] [place] [employer] [address] [facility], ([address]) [place] [address] from Last 3 Months or Most Recently Relevant to Health Maintenance Insurance [address] [place] [phone] [facility] [address] [place] [phone] [place] [address] [phone] [place] [phone] Care Teams Beam Worker Relationship Specialty Start Date End Date Beckie Danielle DO [address] [place] [phone] PCP - General Family Medicine 11/28/13
--- OUTSIDE RECORDS SUMMARY | 2025-01-01 17:22 | XMS_ITS | Encounter Summary ---
Author Organization [employer] Address [address] [facility] 7t [place] [address] Care Team Providers Care Battery Plate Assembler Name Role Phone Beckie Danielle DO Primary Care Provider + [phone] Reason for Visit * Reason Onset Date Comments Appointment Request 10/23/2024 Encounter Details Date Type Department Care Team ([facility] st Contact Info) Description 10/23/2024 Telephone [facility] [address] [place] [address] Beckie Danielle DO [address] [place] [address] Appointment Request Social History Tobacco Use Types Packs/Day Years Used Date Smoking Tobacco: Never Passive Smoke Exposure: Never Smokeless Tobacco: Never Alcohol Use Standard Drinks/Week Comments Never 0 (1 standard drink = 0.6 oz pur e alcohol) Depression Answer Date Recorded Patient Health Questionnaire-9 Score 0 01/07/2023 Housing Stability Answer Date Recorded What is your housing situation today? I have tabitha laird 08/30/[address] you [...] AM EDT documented as of this encounter Miscellaneous Notes * Telephone Encounter - Luis Schwarz - 10/23/2024 10:05 AM EST Tc from pt requesting to reschedule CDTM visit. Please contact pt at [phone]. documented in this encounter Plan of Treatment Upcoming Encounters Date Type Department Care Team (Late st Contact Info) Description 01/04/2025 11:00 AM EST Office Visit [facility] [address] [place], [place] [phone] Beckie Danielle DO [address] [place] [address] documented as of this encounter Goals Goal Patient Goal Type Associated Problems Recent Progress Patient-Stated? Author Blood Pressure < 140/90 Blood Pressure 123/84(2023 9:06 AM EDT) No Dellogono, Rainer, PharmD Record your blood pressure once per day Blood Pressure No Puia Mandi, PharmD Patient will adhere to medication regimen General No Puia Mandi, PharmD Hemoglobin A1c < 7 Result Component 7.9( 11:24 AM EDT) No Dellogono Rainer, PharmD Record your blood sugar as directed Result Component No Puoneil Mandi, PharmD documented as of this encounter Visit Diagnoses Not on filedocumented in this encounter Additional Health Concerns Assessment Noted Time PHQ-9 Depression Total Score: 0 01/08/20 23 10:31 AM EST documented as of this encounter Care Teams Battery Plate Assembler Relationship Specialty Start Date End Date Beckie Danielle DO [address] [place] [address] PCP - General Family Medicine 11/28/13 documented as of this encounter
--- OUTSIDE RECORDS SUMMARY | 2025-01-01 17:22 | XMS_ITS | Encounter Summary ---
Author Organization [employer] Address [address] [facility] 7t [place] [address] Care Team Providers Care Medical Research Scientist Name Role Phone Lolis Beckie Primary Care Provider + [phone] Encounter Details Date Type Department Care Team (Latest Contact Info) Description 01/01/2025 Travel Social History Tobacco Use Types Packs/Day Years [...] Office Visit [facility] [address] [place] [address] Beckie Danielle DO [address] [place], [place] [phone] documented as of this encounter Goals Goal [...] documented as of this encounter Care Teams Medical Research Scientist Relationship Specialty Start Date End Date Beckie Danielle DO [address] [place], [place] [phone] PCP - General Family Medicine 11/28/13 documented as of this encounter
--- OUTSIDE RECORDS SUMMARY | 2025-01-01 17:22 | XMS_ITS | Encounter Summary ---
Author Organization [employer] Address [address] [facility] 7t [place] [address] Care Team Providers Care Territory Business Manager Name Role Phone Beckie Danielle DO Primary Care Provider DelRainer ovalle PharmD Unavailable Unavail able Mandi Murdock PharmD Unavailable Reason for Visit * Reason Comments Med Refill Encounter Details Date Type Department Care Team (Late st Contact Info) Description 01/14/2023 Refill [facility] [address] [place] [address] Beckie Danielle DO [address] [place] [address] Erectile dysfunction, unspecified erectile dysfunction type Social History Tobacco Use Types Packs/Day Years Used Date Smoking Tobacco: Never Passive Smoke Exposure: Never Smokeless Tobacco: Never Alcohol Use Standard Drinks/Week Comments Never 0 (1 standard drink = 0.6 oz pur e alcohol) Depression Answer Date Recorded Patient Health Questionnaire-9 Score 0 01/07/2023 Depression Answer Date Recorded Patient Health Questionnaire-2 Score 0 01/07/2023 Sex and Gender Information Value Date Recorded Sex Assigned at Male 09/06/2022 10:17 AM EDT Legal Sex Male 10:17 AM EDT Gender Identity Male 09/06/2022 10:17 AM EDT Sexual Orientation Choose not to disclose 2021 10:17 AM EDT COVID-19 Exposure Response Date Recorded In the last 10 days, have yo u been in contact with someone who was confirmed or suspected to have Coronavirus/COVID-19? No / Unsure 01/12/2023 8:58 AM EST documented as of this encounter Plan of Treatment Upcoming Encounters Date Type Department Care Team (Late st Contact Info) Description 01/04/2025 11:00 AM EST Office Visit [facility] [address] [facility] [place] [address] Beckie Danielle DO [address] [place] [address] documented as of this encounter Goals Goal Patient Goal Type Associated Problems Recent Progress Patient-Stated? Author Blood Pressure < 140/90 Blood Pressure 123/84(2023 9:06 AM EDT) No Rainer Bishop PharmD Hemoglobin A1c < 7 Result Component 7.9( 11:24 AM EDT) No Rainer Bishop, Glenna documented as of this encounter Visit Diagnoses Diagnosis Erectile dysfunction, unspecified erectile dysfunction type documented in this encounter Additional Health Concerns Assessment Noted Time PHQ-9 Depression Total Score: 0 01/08/20 10:31 AM EST documented as of this encounter Care Teams Territory Business Manager Relationship Specialty Start Date End Date Beckie Danielle DO [address] [place] [address] PCP - General Family Medicine 11/28/13 Rainer Bishop, PharmD [address] [place] [phone] Pharmacist Internal Medicine 01/12/23 06/07/23 Mandi Murdock PharmD [address] [place] [phone] Pharmacist Internal Medicine 06/08/23 05/29/24 documented as of this encounter
--- OUTSIDE RECORDS SUMMARY | 2025-01-01 17:22 | XMS_ITS | Encounter Summary ---
Author Organization [employer] Address [address] [facility] 7t [place] [address] Care Team Providers Care Tank Truck Engine Mechanic Name Role Phone Beckie Danielle DO Primary Care Provider [phone] Mandi Murdock PharmD Unavailable Reason for Visit * Reason Onset Date Comments Appointment Request 05/08/2024 Encounter Details Date Type Department Care Team ([facility] st Contact Info) Description 05/08/2024 Telephone [facility] [address] [place] [address] Beckie Danielle DO [address] [place], [place] [phone] Appointment Request Social History Tobacco Use Types [...] encounter Miscellaneous Notes * Telephone Encounter - Ziyad Abreu - 05/08/2024 10:20 AM EDT Tc from the patients spouse calling to schedule appt with PCP states had insurance issues and now everything is all set and was told by nurse once insurance is good call [facility] to schedule appt documented in this encounter Plan of Treatment Upcoming Encounters Date Type Department Care Team (Late st Contact Info) Description 01/04/2025 11:00 AM EST Office Visit [facility] [address] [place] [address] Beckie Danielle DO [address] [place] [address] documented as of this encounter Goals Goal Patient Goal Type Associated Problems Recent Progress Patient-Stated? Author Blood Pressure < 140/90 Blood Pressure 123/84(2023 9:06 AM EDT) No Dellogono Rainer, PharmD Record your blood pressure once per day Blood Pressure No Murtaza Murdockyssa, PharmD Patient will adhere to medication regimen General No PuiaMurtazaMandi, PharmD Hemoglobin A1c < 7 Result Component 7.9( 11:24 AM EDT) No Dellogono Rainer, PharmD Record your blood sugar as directed Result Component No Mathieu Mandi, PharmD documented as of this encounter Visit Diagnoses Not on filedocumented in this encounter Additional Health Concerns Assessment Noted Time PHQ-9 Depression Total Score: 0 01/08/20 10:31 AM EST documented as of this encounter Care Teams Tank Truck Engine Mechanic Relationship Specialty Start Date End Date Beckie Danielle DO [address] [place] [address] PCP - General Family Medicine 11/28/13 Mnadi Murdock PharmD [address] [place] [address] Pharmacist Internal Medicine 06/08/23 05/29/24 documented as of this encounter
--- OUTSIDE RECORDS SUMMARY | 2025-01-01 17:22 | XMS_ITS | Encounter Summary ---
Author Organization [employer] Address [address] [facility] 7t [place] [address] Care Team Providers Care Clinical Care Manager Name Role Phone Beckie Danielle DO Primary Care Provider + [phone] Reason for Visit * Reason Comments Med Refill Encounter Details Date Type Department Care Team ([facility] st Contact Info) Description 12/06/2024 Refill [facility] [address] [place], [place] [phone] Beckie Danielle DO [address] [place], [place] [phone] Type 2 diabetes mellitus without complication, without long-term current use of insulin ([facility]) Social History Tobacco Use Types Packs/Day Years [...] Description 01/04/2025 11:00 AM EST Office Visit [facility] [address] [place] [address] Beckie Danielle DO [address] [place] [address] documented as of this encounter Goals Goal [...] complication, without long-term current use of insulin ([facility]) documented in this encounter Additional Health Concerns Assessment Noted Time PHQ-9 Depression Total Score: 0 01/08/20 10:31 AM EST documented as of this encounter Care Teams Clinical Care Manager Relationship Specialty Start Date End Date Beckie Danielle DO [address] [place] [address] PCP - General Family Medicine 11/28/13 documented as of this encounter
--- OUTSIDE RECORDS SUMMARY | 2025-01-01 17:22 | XMS_ITS | Encounter Summary ---
Author Organization [employer] [facility] Address [address] [place] [address] 7t [place] [address] Care Team Providers Care Medical Referral Coordinator Name Role Phone Beckie Danielle DO Primary Care Provider DelRainer ovalle PharmD Unavailable Unavail able Mandi Murdock PharmD Unavailable Encounter Details Date Type Department Care Team (Late st Contact Info) Description 11/29/2022 Orders Only [facility] [address] [place] [phone] Kya Cervantes LPN Social History Tobacco Use Types Packs/Day Years Used Date Smoking Tobacco: Never Assessed Sex and Gender Information Value Date Recorded [...] Description 01/04/2025 11:00 AM EST Office Visit [facility] [address] [place] [phone] Beckie Danielle DO [address] [place], [place] [phone] documented as of this encounter Procedures Procedure Name Priority Date/Time Associated Diagnosis Comments CRP, HIGH SENSITIVITY Routine 12/16/2022 3:49 PM EST CBC WITH AUTO DIFFERENTIAL Routine 12/16/2022 3:49 PM EST FERRITIN Routine 12/16/2022 3:49 PM EST CEA Routine 12/16/2022 3:49 PM EST LIPID PANEL, STANDARD Routine 12/16/2022 3:49 PM EST COMPREHENSIVE METABOLIC PANEL Routine 12/16/2022 3:49 PM EST documented in this encounter Results * (ABNORMAL) CRP, HIGH SENSITIVITY (12/16/2022 3:49 PM EST) CRP, High Sensitivity >10.0(A) mg/L [facility] Comment:Reference RangeOptim al <1.0Kevyn SERRA et al. Endocr Pract.2017;23(Suppl 2):1-87.For ages >17 Years:hs-CRP mg/L Risk According to AHA/CDC Guidelines<1.0 Lower relative cardiovascular risk.1.0-3.0 Average relative cardiovascular risk.3.1- 10.0 Higher relative cardiovascular risk. Consider retesting in 1 to 2 weeks to exclude a benign transient elevation in the baseline CRP value secondary to infection or inflammation.>10.0 Persistent elevation, upon retesting, may be associated with infection and inflammation.THIS TEST WAS PERFORMED AT:[employer] [address] ([address])[place] [address]MFOOCKAT PENNY MD 12/16/2022 3:49 PM EST 12/16/2022 3:49 PM EST us [facility] External Provider LAB BLO OD ORDERABLES Final Result [facility] [address] [place] [phone] * CEA (12/16/2022 3:49 PM EST) Carcinoembryonic Antigen 2.70 ng/mL [facility] Comment:CEA Reference Range: 93.4% Non-Smokers = 0.0-3.0 ng/mL 95.6% Smokers = 0.0-5.0 ng/mLCEA Methodology: Mcpherson Alinity i ChemiluminescentMicroparticle Immunoassay (CMIA)CEA testing can have significant value in monitoring ofpatients with diagnosed malignancies in whom changingconcentrations of CEA are observed. Values obtained withdifferent assay methods cannot be used interchangeably. 12/16/2022 3:49 PM EST 12/16/2022 3:49 PM EST [facility] External Provider LAB BLO OD ORDERABLES Final Result Performing Organization Address [facility] Co mi Phone Number [facility] [address] [place] [phone] * (ABNORMAL) Ferritin (12/16/2022 3:49 PM EST) Ferritin 467(H) 20 - 250 ng/mL [facility] 12/16/2022 3:49 PM EST 12/16/2022 3:49 PM EST [facility] External Provider LAB BLO OD ORDERABLES Final Result Performing Organization Address [facility] Co mi Phone Number [facility] [address] [place] [phone] * Lipid Panel, Standard (12/16/2022 3:49 PM EST) Triglycerides 487 mg/dL [facility] Comment:Desirable Triglyceri de: less than 150 mg/dLBorderline High Triglyceride 150-199 mg/dLHigh Triglyceride: 200-499 mg/dLVery High Triglyceride: greater than or equal to 5OO mg/dL Cholesterol 178 mg/dL [facility] Comment:Desirable Cholestero l: less than 200 mg/dLBorderline High Cholesterol: 200-239 mg/dLHigh Cholesterol: greater than 239 mg/dL LDL Cholesterol Calculated TNP mg/dl [facility] Comment:Unable to calculate the LDL. The formula of FriedwaldDeluca, and Malini is only valid if the triglycerides areless than 400 mg/dl. HDL Cholesterol 33 mg/dL [facility] Comment:Desirable HDL: great er than 40 mg/dL Note: This HDL assay may give artificially low results in patients with liver disease. 12/16/2022 3:49 PM EST 12/16/2022 3:49 PM EST us [facility] External Provider LAB BLO OD ORDERABLES Final Result [facility] [address] [place], [place] [phone] * (ABNORMAL) Comprehensive Metabolic Panel (12/16/2022 3:49 PM EST) Sodium 139 135 - 145 mmol/L [facility] Potassium 4.0 3.3 - 5.1 mmol/L [facility] Chloride 99 96 - 108 mmol/L [facility] Carbon Dioxide 30(H) 22 - 29 mmol/L [facility] Anion Gap 14 12 - 20 [facility] Urea Nitrogen (BUN) 20(H) 9 - 16 mg/dL [facility] Creatinine, Serum 1.61(H) 0.5 - 1.4 mg/dL [facility] Estimated Glomerular Filt Rate 43 [facility] Comment:NOTE: For -Am erican individuals, multiply the result by 1.210.Chronic Kidney Disease: Estimated GFR < 60 mL/min/1.85d4Asnssu Kidney Disease: Estimated GFR < 15 mL/min/1.73m2 Glucose 253(H) 60 - 115 mg/dL [facility] Calcium 9.5 8.4 - 10.2 mg/dL [facility] Bilirubin, Total 0.6 0.0 - 1.0 mg/dL [facility] Aspartate Amino Transferase 37 5 - 37 U/L [facility] Alanine Aminotransferase 27 0 - 40 U/L [facility] Total Protein 7.5 6.5 - 8.0 g/dL [facility] Albumin Level 4.5 3.5 - 5.0 g/dL [facility] Alkaline Phosphatase 89 39 - 117 U/L [facility] 12/16/2022 3:49 PM EST 12/16/2022 3:49 PM EST us [facility] External Provider LAB BLO OD ORDERABLES Final Result [facility] [address] [place] [phone] * (ABNORMAL) CBC auto differential (12/16/2022 3:49 PM EST) White Blood Count 8.4 4.8 - 10.8 X10*3/uL [facility] Red Blood Count 4.62 4.60 - 5.80 X10*6/uL [facility] Hemoglobin 13.8(L) 14.0 - 18.0 g/dl [facility] Hematocrit 41.2(L) 42.0 - 52.0 % [facility] Mean Corpuscular Volume 89.2 80.0 - 98.0 fL [facility] Mean Corpuscular Hemoglobin 29.9 27.0 - 33.0 pg [facility] Mean Corpuscular HGB Conc 33.5 31.0 - 36.0 g/dl [facility] Red Cell Distribution Width 12.7 11.0 - 16.0 % [facility] Platelet Count 246 160 - 400 X10*3/uL [facility] Mean Platelet Volume 11.9 9.4 - 12.4 fL [facility] Neutrophils Percent Auto 64.9 45 - 73 % [facility] Imm Gran Pct Auto 0.2 0.0 - 0.4 % [facility] Lymphocytes Percent Auto 26.4 20 - 40 % [facility] Monocytes Percent Auto 6.2 2 - 11 % [facility] Eosinophils Percent Auto 1.9 0 - 4 % [facility] Basophils Percent Auto 0.4 0 - 2 % [facility] NRBC Pct Auto 0.0 0.0 - 0.2 /100WBC [facility] Neutrophils Absolute Auto 5.5 2.0 - 8.3 x10*3/uL [facility] Imm Gran Abs Auto 0.02 0.00 - 0.03 X10*3/uL [facility] Lymphocytes Absolute Auto 2.2 1.2 - 4.9 X10*3/uL [facility] Monocytes Absolute Auto 0.5 0.1 - 1.2 X10*3/uL [facility] Eosinophils Absolute Auto 0.2 0.0 - 0.4 X10*3/uL [facility] Basophils Absolute Auto 0.0 0.0 - 0.2 X10*3/uL [facility] NRBC Abs Auto 0.000 0.0 - 0.012 X10*3/uL [facility] 12/16/2022 3:49 PM EST 12/16/2022 3:49 PM EST us [facility] External Provider LAB BLO OD ORDERABLES Final Result [facility] [address] [place] [address] [phone] documented in this encounter Visit Diagnoses Not on filedocumented in this encounter Care Teams Medical Referral Coordinator Relationship Specialty Start Date End Date Beckie Danielle DO [address] [place] [address] PCP - General Family Medicine 11/28/13 Rainer Bishop, PharmD [address] [place] [phone] Pharmacist Internal Medicine 01/12/23 06/07/23 Mandi Murdock PharmD [address] [place] [address] Pharmacist Internal Medicine 06/08/23 05/29/24 documented as of this encounter
== END ==
LOC: HO.CARD 13:54
PROVIDERS: PCP Family Medicine; Visit Provider Nurse Practitioner Family
DX: I77.810 Thoracic aortic ectasia (principal); R06.00 Dyspnea, unspecified
CPT/HCPCS: 93306

== ENCOUNTER → 2025-01-01 13:57 | Outpatient (BNV) | payer OTHER, SELFPAY | PROVIDERS: PCP Family Medicine; Visit Provider Internal Medicine | DX: I71.21 Aneurysm of the ascending aorta, without rupture (principal) | CPT/HCPCS: 93306 ==

== ENCOUNTER 2025-01-04 12:18 | Outpatient (REF) | payer OTHER, SELFPAY ==
[2025-01-04 13:52] LABS: Hematocrit 41.5 % (42.0-52.0); Hemoglobin 13.9 g/dl (14.0-18.0); Mean Corpuscular HGB Conc 33.5 g/dl (31.0-36.0); Mean Corpuscular Hemoglobin 30.8 pg (27.0-33.0); Mean Corpuscular Volume 91.8 fL (80.0-98.0); Mean Platelet Volume 11.8 fL (9.4-12.4); Platelet Count 234 X10*3/uL (160-400); Red Blood Count 4.52 X10*6/uL (4.60-5.80); White Blood Count 7.6 X10*3/uL (4.8-10.8)
[2025-01-04 14:18] LABS: Estimated Average Glucose 169 mg/dL; Hemoglobin A1C 202.4729 umol/L; Hemoglobin A1c % 7.5 % (<6.0); Total Hemoglobin (HGBA1C) 3476.2789 umol/L
--- OUTSIDE RECORDS SUMMARY | 2025-01-04 14:32 | XMS_ITS | Encounter Summary ---
Author Organization [employer] Address 75 [facility] 7t [place] [address] Care Team Providers Care Folder Inspector Name Role Phone Beckie Danielle DO Primary Care Provider DelRainer ovalle PharmD Unavailable Unavail able Mandi Murdock PharmD Unavailable Reason for Visit * Reason Comments Med Refill Encounter Details Date Type Department Care Team (Late st Contact Info) Description 01/14/2023 Refill [facility] MED [facility] PEDS [address] [place] [address] Beckie Danielle DO [address] [place] [address] Erectile dysfunction, unspecified erectile dysfunction type Social [...] as of this encounter Plan of Treatment Not on file documented as of this encounter Goals Goal Patient Goal Type Associated Problems Recent Progress Patient-Stated? Author Blood Pressure < 140/90 Blood Pressure 118/70(2024 11:35 AM EST) No Rainer Bishop, PharmJoao Hemoglobin A1c < 7 Result Component 7.5( 12:21 PM EST) No Rainer Bishop, PharmJoao documented as of this encounter Visit Diagnoses Diagnosis Erectile dysfunction, unspecified erectile dysfunction type documented in this encounter Additional Health Concerns Assessment Noted Time PHQ-9 Depression Total Score: 0 01/08/20 10:31 AM EST documented as of this encounter Care Teams Folder Inspector Relationship Specialty Start Date End Date Beckie Danielle DO [address] [place] [address] PCP - General Family Medicine 11/28/13 Rainer Bishop PharmD [address] [place] [address] Pharmacist Internal Medicine 01/12/23 06/07/23 Mandi Murdock PharmD [address] [place] [address] Pharmacist Internal Medicine 06/08/23 05/29/24 documented as of this encounter
--- OUTSIDE RECORDS SUMMARY | 2025-01-04 14:33 | XMS_ITS | Encounter Summary ---
Author Organization [employer] Address 75 [facility] 7t [place] [address] Care Team Providers Care Line Crew Supervisor Name Role Phone Lolis Beckie Primary Care Provider + [phone] Encounter Details Date Type Department Care Team [...] Blood Pressure 118/70(2024 11:35 AM EST) No Dellogono, Rainer, PharmD Record your blood pressure once per day Blood Pressure No Puia, Mandi, PharmD Patient will adhere to medication regimen General No Puia, Mandi, PharmD Hemoglobin A1c < 7 Result Component 7.5( 12:21 PM EST) No Dellogono Rainer, PharmD Record your blood sugar as directed Result Component No Puia, Mandi, PharmD documented as of this encounter Visit Diagnoses Not on filedocumented in this encounter Additional Health Concerns Assessment Noted Time PHQ-9 Depression Total Score: 0 01/08/20 23 10:31 AM EST documented as of this encounter Care Teams Line Crew Supervisor Relationship Specialty Start Date End Date Beckie Danielle DO [address] [place] [address] PCP - General Family Medicine 11/28/13 documented as of this encounter
--- OUTSIDE RECORDS SUMMARY | 2025-01-04 14:33 | XMS_ITS | Encounter Summary ---
Author Organization [employer] Address [address] [facility] [address] [place] [address] Care Team Providers Care Regulatory Affairs Coordinator Name Role Phone Beckie Danielle DO Primary Care Provider + [phone] Encounter Details Date Type Department Care Team ([facility] st Contact Info) Description 01/04/2025 11:00 AM EST Office Visit [facility] [address], [place] [phone] Beckie Danielle DO [address] [place] [address] Type 2 diabetes mellitus without complication, without long-term current use of insulin ([facility]) (Primary Dx); Essential hypertension; Hyperlipidemia LDL goal <70; Obstructive sleep apnea; Stenosis of right carotid artery; Chronic constipation; Subclinical hypothyroidism; History of squamous cell carcinoma; Scrotal pain; Healthcare maintenance Social History Tobacco Use Types Packs/Day Years Used Date Smoking Tobacco: Never Passive Smoke Exposure: Never Smokeless Tobacco: Never Tobacco Cessation:Counseling Given: Not Answered Alcohol Use Standard Drinks/Week Comments Never 0 (1 standard drink = 0.6 oz pur e alcohol) Depression Answer Date Recorded Patient Health Questionnaire-9 Score 0 01/04/2025 Patient Health Questionnaire-9 Score 0 01/04/2025 Last PHQ-9: Questionnaire Data Not on file 0 01/04/2025 Housing Stability Answer Date Recorded What is [...] the past 12 months, has t he [employer], gas, oil or water [employer] threatened to shut off services in your home? No 08/30/2023 Depression Answer Date Recorded Patient Health Questionnaire-2 Score 0 01/04/2025 Internet Access Answer Date Recorded Internet Access Q1 Yes 07/09/2024 Internet Access Q2 Not on file 07/09/2024 Sex and Gender Information Value Date Recorded Sex Assigned at Male 09/06/2022 10:17 AM EDT Legal Sex Male 10:17 AM EDT Gender Identity Male 09/06/2022 10:17 AM EDT Sexual Orientation Choose not to disclose 2021 10:17 AM EDT documented as of this encounter Last Filed Vital Signs Vital Sign Reading Time Taken Comments Blood Pressure 118/70 01/04/2025 11:35 AM EST Pulse 71 01/04/2025 11:35 AM EST Temperature 36.2 ??C (97.1 ??F) 01/04/2025 11:[address] Respiratory Rate 21 01/04/2025 11:35 AM EST Oxygen Saturation 98% 01/04/2025 11:35 AM EST Inhaled Oxygen Concentration - - Weight 97.6 kg (215 lb 2 oz) 01/04/2025 11:35 AM EST Height 175.3 cm (5' 9 ) 01/04/2025 11:35 AM EST Body Mass Index 31.77 01/04/2025 11:35 AM EST documented in this encounter Plan of Treatment Not on file documented as of this encounter Goals Goal Patient Goal Type Associated Problems Recent Progress Patient-Stated? Author Blood Pressure < 140/90 Blood Pressure 118/70(2024 11:35 AM EST) No Rainer Bishop, PharmJoao Record your blood pressure once per day Blood Pressure No Mandi Murdock PharmD Patient will adhere to medication regimen General No Mandi Murdock PharmD Hemoglobin A1c < 7 Result Component 7.5( 12:21 PM EST) No Rainer Bishop PharmD Record your blood sugar as directed Result Component No Mandi Murdock PharmD documented as of this encounter Procedures Procedure Name Priority Date/Time Associated Diagnosis Comments POCT GLYCATED HEMOGLOBIN, TOTAL Routine 01/04/2025 11:38 AM EST Type 2 diabetes mellitus without complication, without long-term current use of insulin ([facility]) POCT GLUCOSE Routine 01/04/2025 11:38 AM EST Type 2 diabetes mellitus without complication, without long-term current use of insulin ([facility]) documented in this encounter Results * (ABNORMAL) POCT HGB A1C (01/04/2025 11:38 AM EST) Hemoglobin A1C 7.4(A) 4.0 - 6.0 % QC Media Lot # [id number] Lot# Expiration Date Blood 01/04/2025 11:3 8 AM EST Beckie Danielle DO POINT OF CARE TEST ENTER/PRIYA T ORDERABLES Final Result * (ABNORMAL) POCT Glucose (01/04/2025 11:38 AM EST) Glucose Blood, POC 269(A) 60 - 200 mg/dL bulletn. Lot # [id number] Lot# Expiration Date Blood Capillary blood specimen / Unknown 01/04/2025 11:38 AM EST Beckie Danielle DO POINT OF CARE TEST ENTER/PRIYA T ORDERABLES Final Result documented in this encounter Visit Diagnoses Diagnosis Type 2 diabetes mellitus without complication, without long-term current use of insulin ([facility])- Primary Essential hypertension Unspecified essential hypertension Hyperlipidemia LDL goal <70 Other and unspecified hyperlipidemia Obstructive sleep apnea Obstructive sleep apnea (adult) (pediatric) Stenosis of right carotid artery Occlusion and stenosis of carotid artery without mention of cerebral infarction Chronic constipation Unspecified constipation Subclinical hypothyroidism Other specified acquired hypothyroidism History of squamous cell carcinoma Scrotal pain Unspecified disorder of male genital organs Healthcare maintenance documented in this encounter Additional Health Concerns Assessment Noted Time PHQ-9 Depression Total Score: 0 01/04/20 25 11:37 AM EST documented as of this encounter Care Teams Regulatory Affairs Coordinator Relationship Specialty Start Date End Date Beckie Danielle DO [address] [place] [id number] PCP - General Family Medicine 11/28/13 documented as of this encounter
--- OUTSIDE RECORDS SUMMARY | 2025-01-04 14:33 | XMS_ITS | Encounter Summary ---
Author Organization [employer] Address [address] [facility] [address] [place] [address] Care Team Providers Care Antique Dealer Name Role Phone Beckie Danielle DO Primary Care Provider + [phone] Reason for Visit * Reason Onset Date Comments Appointment Request 10/23/2024 Encounter Details Date Type Department Care Team ([facility] st Contact Info) Description 10/23/2024 Telephone [facility] [address] [place] [address] Beckie Danielle DO [address] [place] [address] Appointment Request Social History Tobacco Use Types [...] Miscellaneous Notes * Telephone Encounter - Luis Chong - 10/23/2024 10:05 AM EST Tc from pt requesting to reschedule CDTM visit. Please contact pt at [phone]. documented in this encounter Plan of Treatment [...] Result Component 7.5( 12:21 PM EST) No Dellogono, Rainer, PharmD Record your blood sugar as directed Result Component No Puia, Mandi, PharmD documented as of this encounter Visit Diagnoses Not on filedocumented in this encounter Additional Health Concerns Assessment Noted Time PHQ-9 Depression Total Score: 0 01/08/20 23 10:31 AM EST documented as of this encounter Care Teams Antique Dealer Relationship Specialty Start Date End Date Beckie Danielle DO [address] [place] [id number] PCP - General Family Medicine 11/28/13 documented as of this encounter
--- OUTSIDE RECORDS SUMMARY | 2025-01-04 14:33 | XMS_ITS | Encounter Summary ---
Author Organization [employer] Address [address] [facility] [address] [place] [address] Care Team Providers Care Biztalk Administrator Name Role Phone Beckie Danielle DO Primary Care Provider + [phone] Reason for Visit * Reason Comments Med Refill Encounter Details Date Type Department Care Team ([facility] st Contact Info) Description 12/06/2024 Refill [facility] [address] [place], [place] [phone] Beckie Danielle DO [address] [place], [place] [phone] Type 2 diabetes mellitus without complication, without long-term current use of insulin ([facility]) Social History Tobacco Use Types Packs/Day Years [...] Blood Pressure 118/70(2024 11:35 AM EST) No DellogonoRainer, PharmD Record your blood pressure once per [...] complication, without long-term current use of insulin ([facility]) documented in this encounter Additional Health Concerns Assessment Noted Time PHQ-9 Depression Total Score: 0 01/08/20 23 10:31 AM EST documented as of this encounter Care Teams Biztalk Administrator Relationship Specialty Start Date End Date Beckie Danielle DO [address] [place] [id number] PCP - General Family Medicine 11/28/13 documented as of this encounter
--- OUTSIDE RECORDS SUMMARY | 2025-01-04 14:33 | XMS_ITS | Encounter Summary ---
Author Organization [employer] Address [address] [facility] [address] [place] [address] Care Team Providers Care [employer] Name Role Phone Beckie Danielle DO Primary Care Provider + [phone] Reason for Visit * Reason Comments Med Refill Encounter Details Date Type Department Care Team ([facility] st Contact Info) Description 09/10/2024 Refill [facility] [address] [place], [place] [phone] Beckie Danielle DO [address] [place], [place] [phone] Type 2 diabetes mellitus without complication, without long-term current use of insulin ([facility]) Social History Tobacco Use [...] complication, without long-term current use of insulin ([facility]) documented in this encounter Additional Health Concerns Assessment Noted Time PHQ-9 Depression Total Score: 0 01/08/20 23 10:31 AM EST documented as of this encounter Care Teams [employer] Relationship Specialty Start Date End Date Beckie Danielle DO [address] [place] [id number] PCP - General Family Medicine 11/28/13 documented as of this encounter
--- OUTSIDE RECORDS SUMMARY | 2025-01-04 14:33 | XMS_ITS | Clinical Summary ---
Author Organization [employer] Address [address] [facility] 7t [place] [address] Care Team Providers Care Speech Communication Instructor Name Role Phone Yesi Daniellefer Primary Care Provider + [phone] Allergies No known active allergies Medications * This document contains information received from the source organization and may not represent a complete record from that organization. Alcohol Swabs (Alcohol Prep) 70 % pads USE 1 SWAB BY TOPICAL ROUTE 2 TIMES EVERY DAY 11/20/19 23 Active folic acid (Folvite) 1 MG tablet TAKE 1 TABLET BY MOUTH EVERY DAY 08/30/20 22 Active rosuvastatin (Crestor) 20 MG tablet Take 20 mg by mouth Once daily. 12/20/19 23 Active latanoprost (Xalatan) 0.005 % ophthalmic solution INSTILL 1 DROP INTO LEFT EYE EVERY EVENING 07/12/20 23 Active fluticasone (Flonase) 50 MCG/ACT nasal sprayIndication s:Seasonal allergic rhinitis, unspecified trigger SPRAY 2 SPRAYS INTO EACH NOSTRIL EVERY DAY 48 mL 1 11/04/20 23 Active lisinopril 40 MG tabletIndicatio ns:Essential hypertension TAKE 1 TABLET BY MOUTH EVERY DAY IN THE MORNING 90 tablet 3 01/03/20 24 Active Aspirin Low Dose 81 MG EC tabletIndicatio ns:Type 2 diabetes mellitus with other specified complication, unspecified whether mcfp insulin use (CMS/HCC) TAKE 1 TABLET BY MOUTH EVERY DAY 90 tablet 3 02/22/20 24 Active metFORMIN XR (Glucophage-XR) 500 MG 24 hr tabletIndicatio ns:Type 2 diabetes mellitus without complication, without long-term current use of insulin (CMS/HCC) Take 1 tablet (500 mg) by mouth with breakfast AND 2 tablets (1,000 mg) with evening meal. Do not crush, chew, or split.. 90 tablet 11 07/23/20 24 Active Blood Glucose Monitoring Suppl (FreeStyle Lite) deviceIndicatio ns:Type 2 diabetes mellitus without complication, without long-term current use of insulin (CMS/FORMERLY [facility]) Inject 1 each under the skin 2 times daily. Use to test blood sugar as directed 1 each 07/23/20 24 Active levothyroxine (Synthroid, Levoxyl) 75 MCG tablet TAKE 1 TABLET BY MOUTH DAILY BEFORE BREAKFAST 90 tablet 1 10/23/20 24 Active tadalafil (Cialis) 20 MG tablet TAKE 1 TABLET BY MOUTH 1/2 TO 1 HOUR BEFORE SEXUAL ACTIVITY 10/19/20 24 Active metoprolol succinate XL (Toprol-XL) 50 MG 24 hr tabletIndicatio ns:Essential hypertension Take 1 tablet (50 mg) by mouth Once per day. Do not crush or chew. 90 tablet 11/21/19 25 Active glucose blood (FREESTYLE LITE) test stripIndication s:Type 2 diabetes mellitus without complication, without long-term current use of insulin (CMS/[facility]ERLY [facility]) Use to test blood sugar twice daily as directed 100 strip 11/21/19 25 Active FreeStyle lancetsIndicati ons:Type 2 diabetes mellitus without complication, without long-term current use of insulin ([facility]/FORMERLY [facility]) 1 each by Other route 2 times daily. Use to test blood sugar twice daily as directed 100 each 11/21/19 25 Active Dulaglutide (Trulicity) 1.5 MG/0.5ML solution auto-injector Inject 1.5 mg under the skin 1 (one) time per week. 2 mL 11/21/19 25 Active amLODIPine (Norvasc) 10 MG tablet Take 1 tablet (10 mg) by mouth Once per day. 30 tablet 01/04/20 25 026 Active amLODIPine (Norvasc) 10 MG tablet TAKE 1 TABLET BY MOUTH EVERY DAY 90 tablet 1 03/07/20 24 025 Discontinued(Re order (will not trigger notification to Pharmacy)) Active Problems Problem Noted Date Diagnosed Date Erectile dysfunction 12/02/2023 Assessment & Plan (12/02/2023 9:53 AM EST): Reportedly not improving w Dorinda Explained it could be related to DM Refer to urology Hydrocele in adult 12/02/2023 Overview (12/02/2023): Scrotal US on 2018 ([facility]) Assessment & Plan (12/02/2023 2:20 PM EST): [...] Encounters Date Type Department Care Team Description 01/04/2025 11:00 AM EST Office Visit [facility] [place] [address] Beckie Danielle DO Type 2 diabetes mellitus without complication, without long-term current use of insulin (CMS/[facility]) (Primary Dx); Essential hypertension; Hyperlipidemia LDL goal <70; Obstructive sleep apnea; Stenosis of right carotid artery; Chronic constipation; Subclinical hypothyroidism; History of squamous cell carcinoma; Scrotal pain; Healthcare maintenance 01/04/2025 Travel 01/01/2025 Travel 12/06/2024 Refill [facility] [address] [place] [address] Beckie Danielle DO Type 2 diabetes mellitus without complication, without long-term current use of insulin (CMS/HCC) 11/23/2024 Telephone [facility] [place] [address] Rowan Maurer MA Recall Appt. 11/23/2024 Telephone [facility] [place] [address] Rowan Maurer MA Recall Appt. 11/23/2024 Travel 11/21/2024 Refill [facility] [place] [address] Beckie Danielle DO Essential hypertension; Type 2 diabetes mellitus without complication, without long-term current use of insulin (CMS/HCC) 11/21/2024 Telephone [facility] [place] [address] Mandi Murdock, Glenna 10/23/2024 Telephone [facility] [address] [place] [address] Beckie Danielle DO 10/23/2024 Telephone [facility] [address] [place] [address] Beckie Danielle DO Appointment Request 10/22/2024 Refill [facility] [address] [place] [address] Beckie Danielle DO from Last 3 Months [...] Mass Index 31.77 01/04/2025 11:35 AM EST Plan of Treatment Health Maintenance Due Date Last Done Comments CT Colonography 1960 Colonoscopy 1960 Colorectal Cancer Screening 1960 FIT DNA/Cologuard 1958 FIT 1958 FOBT 1960 Sigmoidoscopy 1958 Diabetes: Foot Exam 1968 Eye Exam 1968 COVID-19 Vaccine ( season) 2024 09/06/2022, 03/16/2022, 01/28/2021 Influenza Vaccine (#1) 2024 , 10/12/2021, 11/02/2019, Additional history exists DTaP/Tdap/Td Vaccines (2 - Td or Tdap) 07/29/2024 07/29/2014 Diabetes: Urine Protein Screening 11/17/2024 11/17/2023, 10/26/2021, 12/11/2020 Lipid Panel 11/17/2024 11/17/2023, 11/07, 12/16/2022, Additional history exists Diabetes: Hemoglobin A1C 04/03/2025 025, 01/04/2025, 05/29/2024, Additional history exists SDOH Screening 05/21/2025 05/21/2024 Alcohol/Substance Use Screening 01/04/2026 01/04/2025 Depression Screening 01/04/2026 01/04/2025, 01/04/20 Tobacco Screening 01/04/2026 01/04/2025 Hepatitis B Vaccines Completed 10/27/2017, 10/08/2015, 07/29/2014 [...] Pressure 118/70(2024 11:35 AM EST) No Rainer Bishop PharmJoao Record your blood pressure once per day Blood Pressure No Mandi Murdock PharmD Patient will adhere to medication regimen General No Mandi Murdock PharmD Hemoglobin A1c < 7 Result Component 7.5( 12:21 PM EST) No Rainer Bishop PharmD Record your blood sugar as directed Result Component No Mandi Murdock PharmD Procedures Procedure Name Priority Date/Time Associated Diagnosis Comments CBC Routine 01/04/2025 12:21 PM EST Type 2 diabetes mellitus without complication, without long-term current use of insulin (CMS/HCC) Essential hypertension Hyperlipidemia LDL goal <70 Obstructive sleep apnea Stenosis of right carotid artery Elevated TSH History of squamous cell carcinoma Healthcare maintenance HEMOGLOBIN A1C Routine 01/04/2025 12:21 PM EST Type 2 diabetes mellitus without complication, without long-term current use of insulin (CMS/HCC) Essential hypertension Hyperlipidemia LDL goal <70 Obstructive sleep apnea Stenosis of right carotid artery Elevated TSH History of squamous cell carcinoma Healthcare maintenance POCT GLYCATED HEMOGLOBIN, TOTAL Routine 01/04/2025 11:38 AM EST Type 2 diabetes mellitus without complication, without long-term current use of insulin (CMS/HCC) POCT GLUCOSE Routine 01/04/2025 11:38 AM EST Type 2 diabetes mellitus without complication, without long-term current use of insulin (CMS/HCC) US SCROTUM Routine 10/16/2024 3:01 PM EST ALBUMIN, RANDOM URINE W/CREATININE Routine 11/17/2023 2:10 [...] Recently Relevant to Health Maintenance Results * (ABNORMAL) CBC (01/04/2025 12:21 PM EST) White Blood Count 7.6 4.8 - 10.8 X10*3/uL [facility] Red Blood Count 4.52(L) 4.60 - 5.80 X10*6/uL [facility] Hemoglobin 13.9(L) 14.0 - 18.0 g/dl [facility] Hematocrit 41.5(L) 42.0 - 52.0 % [facility] Mean Corpuscular Volume 91.8 80.0 - 98.0 fL [facility] Mean Corpuscular Hemoglobin 30.8 27.0 - 33.0 pg [facility] Mean Corpuscular HGB Conc 33.5 31.0 - 36.0 g/dl [facility] Red Cell Distribution Width 13.0 11.0 - 16.0 % [facility] Platelet Count 234 160 - 400 X10*3/uL [facility] Mean Platelet Volume 11.8 9.4 - 12.4 fL [facility] NRBC Pct Auto 0.0 0.0 - 0.2 /100WBC [facility] NRBC Abs Auto 0.000 0.0 - 0.012 X10*3/uL [facility] Blood Venous blood specimen / Unknown 01/04/2025 12:21 PM EST 01/04/2025 1:14 PM EST us Beckie Danielle DO LAB BLOOD ORDERABLES Final R esult [facility] [address] [place] [phone] * (ABNORMAL) Hemoglobin A1c (01/04/2025 12:21 PM EST) Hemoglobin A1c 7.5(H) <6.0 % [facility] Comment:Hemoglobin A1C Refer ence Range Adults: 4.8 - 6.0 % Non diabetic: < 6.0 % Goal: < 7.0 %Additional Action Suggested: > 8.0 %Note: Hemoglobin A1c results are invalid for patients with abnormal amounts of HbF. Blood transfusions may impact the HbA1c concentration in the patient sample. Estimated Average Glucose 169 mg/dL [facility] Comment:eAG = Estimated ave rage glucose which is %A1C expressed asaverage glucose, using the formula of the K2U-InjehtnLjbysll Glucose study (ADAG), Diabetes Care, Vol.31,#8,Jun. 2007 Blood Venous blood specimen / Unknown 01/04/2025 12:21 PM EST 01/04/2025 1:14 PM EST Beckie Danielle DO LAB BLOOD ORDERABLES Final R esult [facility] [address] [place] [phone] * (ABNORMAL) POCT HGB A1C (01/04/2025 11:38 AM EST) Hemoglobin A1C 7.4(A) 4.0 - 6.0 % [facility] Lot # [id number] Lot# Expiration Date Blood 01/04/2025 11:3 8 AM EST Beckie Parrahubergregory DO POINT OF CARE TEST ENTER/PRIYA T ORDERABLES Final Result * (ABNORMAL) POCT Glucose (01/04/2025 11:38 AM EST) Glucose Blood, POC 269(A) 60 - 200 mg/dL [facility] Lot # [id number] Lot# Expiration Date [id number] Blood Capillary blood specimen / Unknown 01/04/2025 11:38 AM EST Beckie Parrasandra DO POINT OF CARE TEST ENTER/PRIYA T ORDERABLES Final Result * US Scrotum (10/16/2024 3:01 PM EST) Anatomical Region Laterality Modality Body Ultrasound 10/16/2024 3:01 PM EST Narrative 10/23/2024 12:07 PM EST ? [facility] ?[address] ?[place] [address] ? Ultrasound Report ? Signed ? Patient: Rebecca,Maicol ?MR#: [id number] ?? 6 ? : 1960 ?Acct:[id number] ? Age/Sex: 63 / M ?ADM Date: 10/16/24 ? Loc: HO.US ? Attending Dr: Venancio JESUS ? Ordering Physician: Venancio Mathew ?? Date of Service: 10/16/24 ?? Procedure(s): US scrotum ?? Accession Number(s): [id number] ? cc: Beckie Danielle DO; Venancio Mathew [...] DD/ 1501 ? TD/TT: 10/16/24 1514 ? Dial Mounter: ? Procedure Note Donotuseinterpreter, Image - 10/23/2024 [place] [id number] Ultrasound Report Signed Patient: Onofre Fernandez#: [id number] 6 : 9Acct:[id number] Age/Sex: 63 / MADM Date: 10/16/24 Loc: HO.US Attending Dr: Venancio JESUS Ordering Physician: Venancio Mathew Date of Service: 10/16/24 Procedure(s): US scrotum Accession Number(s): [id number] cc: Beckie Danielle DO; Venancio Mathew EXAMINATION: [...] by: Mart Gold MD 10/23/2024 12:04 PM EST Dictated By: Mart Gold MD Signed By: <Electronically signed by Mart Gold MD in [place]> 10/23/24 1204 DD/ 1501 TD/TT: 10/16/24 1514 Dial Mounter: [facility] External Provider IMG US PROCEDURES Final Result * Albumin, Random Urine W/Creatinine (11/17/2023 2:10 PM EST) Creatinine, Urine 165.19 mg/dL [facility] Microalbumin Urine 19.0 mg/L [facility] Microalbum Creatinine Ratio Ur 11.5 <30 ug/mg cr [facility] Comment:Albumin/Creatinine R atio Reference Ranges: Normal: < 30 ug/mg creatinine Microalbuminuria: 30 - 300 ug/mg creatinineClinical Albuminuria: > 300 ug/mg creatinine 11/17/2023 2:10 PM EST 11/17/2023 4:07 PM EST Beckie Danielle DO LAB URINE ORDERABLES Final R esult [facility] [address] [place] [phone] * (ABNORMAL) Lipid Panel, Standard (11/17/2023 2:10 PM EST) Triglycerides 252(H) <150 mg/dL [facility] Comment:Desirable Triglyceri de: less than 150 mg/dLBorderline High Triglyceride 150-199 mg/dLHigh Triglyceride: 200-499 mg/dLVery High Triglyceride: greater than or equal to 5OO mg/dL Cholesterol 163 <200 mg/dL [facility] Comment:Desirable Cholestero l: less than 200 mg/dLBorderline High Cholesterol: 200-239 mg/dLHigh Cholesterol: greater than 239 mg/dL LDL Cholesterol Calculated 79 <100 mg/dL [facility] Comment:Desirable LDL: less than 100 mg/dLNear Optimal/Above Optimal LDL: 110- 129 mg/dLBorderline High LDL: 130-159 mg/dLHigh LDL: 160-189 mg/dLVery High LDL: greater than or equal to 190 mg/dL HDL Cholesterol 34(L) >40 mg/dL [facility] Comment:Desirable HDL: great er than 40 mg/dL Note: This HDL assay may give artificially low results in patients with liver disease. Blood Venous blood specimen / Unknown 11/17/2023 2:10 PM EST 11/17/2023 4:09 PM EST us Beckie Danielle DO LAB BLOOD ORDERABLES Final R esult [facility] [address] [place] [phone] * Hepatitis C Antibody with Reflex to HCV RNA,PCR w/Reflex to Genotype, LiPA (01/07/2023 11:37 AM EST) Hepatitis C Antibody NON-REACT ALVINA NON-REACT ALVINA [facility] Index 0.03 <1.00 [facility] Comment: HCV antibody was non-reactive. There is no laboratory evidence of HCV infection. In most cases, no further action is required. However, if recent HCV exposure is suspected, a test for HCV RNA (test code 13187) is suggested. For additional information, please refer to http://education.Rocket Raise/faq/LWP883 (This link is being provided for informational/ educational purposes only.) 01/07/2023 11:3 7 AM EST 01/07/2023 11:38 AM EST Narrative [facility] - 01/10/2023 12:40 PM EST FASTING:YES PATIENT UNABLE TO VOID; ADVISED TO RETURN FOR COLLECTION. FASTING: YES Beckie Danielle DO LAB BLOOD ORDERABLES Final R esult [facility] [address] [facility], [place] [address] MDSave [facility] [address] [facility], ([address]) [place] [phone] from Last 3 Months or Most Recently Relevant to Health Maintenance Insurance [facility] [address] [address] [place] [phone] [place] [phone] [place] [phone] Care Teams Speech Communication Instructor Relationship Specialty Start Date End Date Beckie Danielle DO [address] [place] [address] PCP - General Family Medicine 11/28/13
--- OUTSIDE RECORDS SUMMARY | 2025-01-04 14:33 | XMS_ITS | Encounter Summary ---
Author Organization [employer] Address [address] [facility] 7t [place] [address] Care Team Providers Care General Lithographic Worker Name Role Phone Beckie Danielle DO Primary Care Provider DelRainer ovalle PharmD Unavailable Unavail able Mandi Murdock PharmD Unavailable [phone] Encounter Details Date Type Department Care Team (Late st Contact Info) Description 11/29/2022 Orders Only [facility] [address] [place] [address] Kya Cervantes LPN Social History Tobacco Use [...] on file documented as of this encounter Procedures Procedure [...] PM EST) CRP, High Sensitivity >10.0(A) mg/L [facility] Comment:Reference RangeOptim al <1.0Kevyn PS et al. Endocr Pract.2017;23(Suppl 2):1-87.For ages >17 [...] with infection and inflammation.THIS TEST WAS PERFORMED AT:[facility] [place] [address] (NL1)[place] [address]VUGABKAT PENNY MD 12/16/2022 3:49 PM EST 12/16/2022 3:49 PM EST [facility] External Provider LAB BLO OD ORDERABLES Final Result [facility] [address] [place] [phone] * CEA (12/16/2022 3:49 PM EST) Carcinoembryonic Antigen 2.70 ng/mL [facility] Comment:CEA Reference Range: 93.4% Non-Smokers = 0.0-3.0 ng/mL 95.6% Smokers = 0.0-5.0 ng/mLCEA Methodology: Mcpherson Alinity i ChemiluminescentMicroparticle Immunoassay (CMIA)CEA testing can have significant value in monitoring ofpatients with diagnosed malignancies in whom changingconcentrations of CEA are observed. Values obtained withdifferent assay methods cannot be used interchangeably. 12/16/2022 3:49 PM EST 12/16/2022 3:49 PM EST [facility] External Provider LAB BLO OD ORDERABLES Final Result Performing Organization Address City/[facility] Co de Phone Number [facility] [address] [place] [phone] * (ABNORMAL) Ferritin (12/16/2022 3:49 PM EST) Ferritin 467(H) 20 - 250 ng/mL [facility] 12/16/2022 3:49 PM EST 12/16/2022 3:49 PM EST [facility] External Provider LAB BLO OD ORDERABLES Final Result Performing Organization Address City/[facility] Co de Phone Number [facility] [address] [place] [phone] * Lipid Panel, Standard (12/16/2022 3:49 PM EST) Triglycerides 487 mg/dL [facility] Comment:Desirable Triglyceri de: less than 150 mg/dLBorderline High Triglyceride 150-199 mg/dLHigh Triglyceride: 200-499 mg/dLVery High Triglyceride: greater than or equal to 5OO mg/dL Cholesterol 178 mg/dL [facility] Comment:Desirable Cholestero l: less than 200 mg/dLBorderline High Cholesterol: 200-239 mg/dLHigh Cholesterol: greater than 239 mg/dL LDL Cholesterol Calculated TNP mg/dl [facility] Comment:Unable to calculate the LDL. The formula of Friedwald,Deluca, and Malini is only valid if the triglycerides areless than 400 mg/dl. HDL Cholesterol 33 mg/dL [facility] Comment:Desirable HDL: great er than 40 mg/dL Note: This HDL assay may give artificially low results in patients with liver disease. 12/16/2022 3:49 PM EST 12/16/2022 3:49 PM EST [facility] External Provider LAB BLO OD ORDERABLES Final Result [facility] [address] [place] [phone] * (ABNORMAL) Comprehensive Metabolic Panel (12/16/2022 3:49 PM EST) Sodium 139 135 - 145 mmol/L [facility] Potassium 4.0 3.3 - 5.1 mmol/L [facility] Chloride 99 96 - 108 mmol/L [facility] Carbon Dioxide 30(H) 22 - 29 mmol/L [facility] Anion Gap 14 12 - 20 [facility] Urea Nitrogen (BUN) 20(H) 9 - 16 mg/dL [facility] Creatinine, Serum 1.61(H) 0.5 - 1.4 mg/dL [facility] Estimated Glomerular Filt Rate 43 [facility] Comment:NOTE: For -Am erican individuals, multiply the result by 1.210.Chronic Kidney Disease: Estimated GFR < 60 mL/min/1.08m4Pnmyro Kidney Disease: Estimated GFR < 15 mL/min/1.73m2 Glucose 253(H) 60 - 115 mg/dL [facility] Calcium 9.5 8.4 - 10.2 mg/dL [facility] Bilirubin, Total 0.6 0.0 - 1.0 mg/dL [facility] Aspartate Amino Transferase 37 5 - 37 U/L [facility] Alanine Aminotransferase 27 0 - 40 U/L [facility] Total Protein 7.5 6.5 - 8.0 g/dL [facility] Albumin Level 4.5 3.5 - 5.0 g/dL [facility] Alkaline Phosphatase 89 39 - 117 U/L [facility] 12/16/2022 3:49 PM EST 12/16/2022 3:49 PM EST [facility] External Provider LAB BLO OD ORDERABLES Final Result [facility] [address] [place], [place] [phone] * (ABNORMAL) CBC auto differential (12/16/2022 3:49 PM EST) White Blood Count 8.4 4.8 - 10.8 X10*3/uL [facility] Red Blood Count 4.62 4.60 - 5.80 X10*6/uL [facility] Hemoglobin 13.8(L) 14.0 - 18.0 g/dl [facility] Hematocrit 41.2(L) 42.0 - 52.0 % [facility] Mean Corpuscular Volume 89.2 80.0 - 98.0 fL [facility] Mean Corpuscular Hemoglobin 29.9 27.0 - 33.0 pg [facility] Mean Corpuscular HGB Conc 33.5 31.0 - 36.0 g/dl [facility] Red Cell Distribution Width 12.7 11.0 - 16.0 % [facility] Platelet Count 246 160 - 400 X10*3/uL [facility] Mean Platelet Volume 11.9 9.4 - 12.4 fL [facility] Neutrophils Percent Auto 64.9 45 - 73 % [facility] Imm Gran Pct Auto 0.2 0.0 - 0.4 % [facility] Lymphocytes Percent Auto 26.4 20 - 40 % [facility] Monocytes Percent Auto 6.2 2 - 11 % [facility] Eosinophils Percent Auto 1.9 0 - 4 % [facility] Basophils Percent Auto 0.4 0 - 2 % [facility] NRBC Pct Auto 0.0 0.0 - 0.2 /100WBC [facility] Neutrophils Absolute Auto 5.5 2.0 - 8.3 x10*3/uL [facility] Imm Gran Abs Auto 0.02 0.00 - 0.03 X10*3/uL [facility] Lymphocytes Absolute Auto 2.2 1.2 - 4.9 X10*3/uL [facility] Monocytes Absolute Auto 0.5 0.1 - 1.2 X10*3/uL [facility] Eosinophils Absolute Auto 0.2 0.0 - 0.4 X10*3/uL [facility] Basophils Absolute Auto 0.0 0.0 - 0.2 X10*3/uL [facility] NRBC Abs Auto 0.000 0.0 - 0.012 X10*3/uL [facility] 12/16/2022 3:49 PM EST 12/16/2022 3:49 PM EST us [facility] External Provider LAB BLO OD ORDERABLES Final Result Performing Organization Address City/State/[facility] Co de Phone Number [facility] [address] [place] [phone] documented in this encounter Visit Diagnoses Not on filedocumented in this encounter Care Teams General Lithographic Worker Relationship Specialty Start Date End Date Beckie Danielle DO [address] [place] [address] PCP - General Family Medicine 11/28/13 Rainer Bishop, PharmD [address] [place] [phone] Pharmacist Internal Medicine 01/12/23 06/07/23 Mandi Murdock PharmD [address] [place] [address] Pharmacist Internal Medicine 06/08/23 05/29/24 documented as of this encounter
--- OUTSIDE RECORDS SUMMARY | 2025-01-04 14:33 | XMS_ITS | Encounter Summary ---
Author Organization [employer] Address [address] [facility] 7t [place] [address] Care Team Providers Care General Lithographic Worker Name Role Phone Lolis Beckie Primary Care Provider + [phone] Encounter Details Date Type Department Care Team (Latest Contact Info) Description 01/04/2025 Travel Social History Tobacco Use Types Packs/Day [...] documented as of this encounter Care Teams General Lithographic Worker Relationship Specialty Start Date End Date Beckie Danielle DO [address] [place] [address] PCP - General Family Medicine 11/28/13 documented as of this encounter
--- OUTSIDE RECORDS SUMMARY | 2025-01-04 14:33 | XMS_ITS | Encounter Summary ---
Author Organization [employer] Address [address] [place] [address] Care Team Providers Care Search Engine Optimizer Name Role Phone Beckie Danielle DO Primary Care Provider [phone] Mandi Murdock PharmD Unavailable Reason for Visit * Reason Onset Date Comments Appointment Request 05/08/2024 Encounter Details Date Type Department Care Team ([facility] st Contact Info) Description 05/08/2024 Telephone [facility] MEDICINE [address] [place] [address] Beckie Danielle DO [address] [place], [place] [phone] Appointment Request Social History Tobacco Use Types [...] by nurse once insurance is good call [facility] to schedule appt documented in this [...] documented as of this encounter Care Teams Search Engine Optimizer Relationship Specialty Start Date End Date Beckie Danielle DO [address] [place] [id number] PCP - General Family Medicine 11/28/13 Mandi Murdock, Glenna [address] [place] [id number] Pharmacist Internal Medicine 06/08/23 05/29/24 documented as of this encounter
[2025-01-04 14:41] LABS: Creatinine Urine 305.99 mg/dL; Microalbum/Creatinine Ratio Ur 6.5 ug/mg cr (<30)
[2025-01-04 14:48] LABS: Free T4 (Free Thyroxine) 0.81 ng/dL (0.71-1.85); Thyroid Stimulating Hormone 3.45 uIU/mL (0.32-4.0)
[2025-01-04 15:11] LABS: Alanine Aminotransferase 54 U/L (0-40); Albumin Level 4.4 g/dL (3.5-5.0); Alkaline Phosphatase 95 U/L (39-117); Anion Gap 11 (12-20); Aspartate Amino Transferase 21 U/L (5-37); Bilirubin Direct 0.1 mg/dL (0.0-0.5); Bilirubin Total 0.5 mg/dL (0.0-1.0); Blood Urea Nitrogen 14 mg/dL (9-16); Calcium 9.5 mg/dL (8.4-10.2); Carbon Dioxide 29 mmol/L (22-29); Chloride 106 mmol/L (96-108); Cholesterol 195 mg/dL (<200); Estimated Glomerular Filt Rate > 60; Glucose Random 172 mg/dL (60-115); HDL Cholesterol 35 mg/dL (>40); Potassium 4.9 mmol/L (3.3-5.1); Sodium 141 mmol/L (135-145); Total Protein 8.4 g/dL (6.5-8.0); Triglycerides 463 mg/dL (<150)
[2025-01-04 15:22] LABS: CT PCR NOT DETECTED (Not Detect.); NG PCR NOT DETECTED (Not Detect.)
[2025-01-04 19:29] LABS: Vitamin D 25-OH Total 18.2 ng/mL (>30)
[2025-01-07 08:45] LABS: HBS Num1 59.29 mIU/mL (0-7.99); HBc Num1 5.81 S/CO (0.00-0.79); HBsAGNum1 0.43 S/CO (0.00-0.99); HIV AB/AG Nonreactive (Nonreactive); HIV Num 1 0.12 S/CO (0.00-0.99); Hepatitis B Surface Antigen Negative (Negative); ~HepC Num1 0.14 S/CO (0.00-0.79); ~Hepatitis B Surface Antibody REACTIVE (Nonreactive); ~Hepatitis C Antibody Nonreactive (Nonreactive)
[2025-01-07 09:53] LABS: HBc Num2 5.69 S/CO; HBc Num3 5.98 S/CO; Hepatitis B Core Antibody Reactive (Nonreactive)
== END 2025-01-04 12:19 | disposition home or self-care (01) ==
LOC: HO.HHCL 12:18
PROVIDERS: Visit Provider Family Medicine
DX: Z00.00 Encounter for general adult medical examination without abnormal findings (principal); E11.9 Type 2 diabetes mellitus without complications; I10 Essential (primary) hypertension; E78.5 Hyperlipidemia, unspecified; G47.33 Obstructive sleep apnea (adult) (pediatric); I65.21 Occlusion and stenosis of right carotid artery; R79.89 Other specified abnormal findings of blood chemistry; Z85.89 Personal history of malignant neoplasm of other organs and systems; E55.9 Vitamin D deficiency, unspecified; Z11.3 Encounter for screening for infections with a predominantly sexual mode of transmission; Z11.59 Encounter for screening for other viral diseases; A64 Unspecified sexually transmitted disease
CPT/HCPCS: 80048; 80061; 80076; 82043; 82306; 82570; 83036; 84439; 84443; 85027; 86704; 86706; 86803; 87340; 87389; 87491; 87591

== ENCOUNTER 2025-01-15 06:49 | Day surgery (SDC) | payer OTHER, SELFPAY ==
--- OUTSIDE RECORDS SUMMARY | 2025-01-03 15:10 | XMS_ITS | Encounter Summary ---
Author Organization [employer] [facility] Address [address] [place] [address] 7t [place] [address] Care Team Providers Care Scratcher Tender Name Role Phone Beckie Danielle DO Primary Care Provider DelRainer ovalle PharmD Unavailable Unavail able Mandi Murdock PharmD Unavailable Encounter Details Date Type Department Care Team (Late st Contact Info) Description 11/29/2022 Orders Only [facility] [address] [place] [phone] Kya Cervantes LPN Social History Tobacco Use [...] 01/04/2025 11:00 AM EST Office Visit [facility] [address] [place] [address] [phone] Beckie Danielle DO [address] [place], [place] [phone] documented as of this encounter Procedures Procedure [...] PM EST) CRP, High Sensitivity >10.0(A) mg/L [facility] Comment:Reference RangeOptim al <1.0Kevyn SERRA et [...] with infection and inflammation.THIS TEST WAS PERFORMED AT:[facility] [address] ([address])[place] [phone] PENNY MD 12/16/2022 3:49 PM EST 12/16/2022 3:49 PM EST us [facility] External Provider LAB BLO OD ORDERABLES Final Result [facility] [address] [place] [phone] * CEA (12/16/2022 3:49 PM EST) Carcinoembryonic Antigen 2.70 ng/mL [facility] Comment:CEA Reference Range: 93.4% Non-Smokers = 0.0-3.0 ng/mL 95.6% Smokers = 0.0-5.0 ng/mLCEA Methodology: Mcpherson Alinity i ChemiluminescentMicroparticle Immunoassay (CMIA)CEA testing can have significant value in monitoring ofpatients with diagnosed malignancies in whom changingconcentrations of CEA are observed. Values obtained withdifferent assay methods cannot be used interchangeably. 12/16/2022 3:49 PM EST 12/16/2022 3:49 PM EST [facility] External Provider LAB BLO OD ORDERABLES Final Result Performing Organization Address [facility] Co mn Phone Number [facility] [address] [place] [phone] * (ABNORMAL) Ferritin (12/16/2022 3:49 PM EST) Ferritin 467(H) 20 - 250 ng/mL [facility] 12/16/2022 3:49 PM EST 12/16/2022 3:49 PM EST [facility] External Provider LAB BLO OD ORDERABLES Final Result Performing Organization Address [facility] Co mn Phone Number [facility] [address] [place] [phone] * Lipid Panel, Standard (12/16/2022 3:49 PM EST) Triglycerides 487 mg/dL [facility] Comment:Desirable Triglyceri de: less than 150 mg/dLBorderline High Triglyceride 150-199 mg/dLHigh Triglyceride: 200-499 mg/dLVery High Triglyceride: greater than or equal to 5OO mg/dL Cholesterol 178 mg/dL [facility] Comment:Desirable Cholestero l: less than 200 mg/dLBorderline High Cholesterol: 200-239 mg/dLHigh Cholesterol: greater than 239 mg/dL LDL Cholesterol Calculated TNP mg/dl [facility] Comment:Unable to calculate the LDL. The formula of FriedwaldDeluca, and Malini is only valid if the triglycerides areless than 400 mg/dl. HDL Cholesterol 33 mg/dL [facility] Comment:Desirable HDL: great er than 40 mg/dL Note: This HDL assay may give artificially low results in patients with liver disease. 12/16/2022 3:49 PM EST 12/16/2022 3:49 PM EST us [facility] External Provider LAB BLO OD ORDERABLES Final Result [facility] [address] [place], [place] [phone] * (ABNORMAL) Comprehensive Metabolic Panel (12/16/2022 3:49 PM EST) Sodium 139 135 - 145 mmol/L [facility] Potassium 4.0 3.3 - 5.1 mmol/L [facility] Chloride 99 96 - 108 mmol/L [facility] Carbon Dioxide 30(H) 22 - 29 mmol/L [facility] Anion Gap 14 12 - 20 [facility] Urea Nitrogen (BUN) 20(H) 9 - 16 mg/dL [facility] Creatinine, Serum 1.61(H) 0.5 - 1.4 mg/dL [facility] Estimated Glomerular Filt Rate 43 [facility] Comment:NOTE: For -Am erican individuals, multiply the result by 1.210.Chronic Kidney Disease: Estimated GFR < 60 mL/min/1.02q8Xcdpqi Kidney Disease: Estimated GFR < 15 mL/min/1.73m2 Glucose 253(H) 60 - 115 mg/dL [facility] Calcium 9.5 8.4 - 10.2 mg/dL [facility] Bilirubin, Total 0.6 0.0 - 1.0 mg/dL [facility] Aspartate Amino Transferase 37 5 - 37 U/L [facility] Alanine Aminotransferase 27 0 - 40 U/L [facility] Total Protein 7.5 6.5 - 8.0 g/dL [facility] Albumin Level 4.5 3.5 - 5.0 g/dL [facility] Alkaline Phosphatase 89 39 - 117 U/L [facility] 12/16/2022 3:49 PM EST 12/16/2022 3:49 PM EST us [facility] External Provider LAB BLO OD ORDERABLES Final Result [facility] [address] [place] [phone] * (ABNORMAL) CBC auto differential (12/16/2022 3:49 PM EST) White Blood Count 8.4 4.8 - 10.8 X10*3/uL [facility] Red Blood Count 4.62 4.60 - 5.80 X10*6/uL [facility] Hemoglobin 13.8(L) 14.0 - 18.0 g/dl [facility] Hematocrit 41.2(L) 42.0 - 52.0 % [facility] Mean Corpuscular Volume 89.2 80.0 - 98.0 fL [facility] Mean Corpuscular Hemoglobin 29.9 27.0 - 33.0 pg [facility] Mean Corpuscular HGB Conc 33.5 31.0 - 36.0 g/dl [facility] Red Cell Distribution Width 12.7 11.0 - 16.0 % [facility] Platelet Count 246 160 - 400 X10*3/uL [facility] Mean Platelet Volume 11.9 9.4 - 12.4 fL [facility] Neutrophils Percent Auto 64.9 45 - 73 % [facility] Imm Gran Pct Auto 0.2 0.0 - 0.4 % [facility] Lymphocytes Percent Auto 26.4 20 - 40 % [facility] Monocytes Percent Auto 6.2 2 - 11 % [facility] Eosinophils Percent Auto 1.9 0 - 4 % [facility] Basophils Percent Auto 0.4 0 - 2 % [facility] NRBC Pct Auto 0.0 0.0 - 0.2 /100WBC [facility] Neutrophils Absolute Auto 5.5 2.0 - 8.3 x10*3/uL [facility] Imm Gran Abs Auto 0.02 0.00 - 0.03 X10*3/uL [facility] Lymphocytes Absolute Auto 2.2 1.2 - 4.9 X10*3/uL [facility] Monocytes Absolute Auto 0.5 0.1 - 1.2 X10*3/uL [facility] Eosinophils Absolute Auto 0.2 0.0 - 0.4 X10*3/uL [facility] Basophils Absolute Auto 0.0 0.0 - 0.2 X10*3/uL [facility] NRBC Abs Auto 0.000 0.0 - 0.012 X10*3/uL [facility] 12/16/2022 3:49 PM EST 12/16/2022 3:49 PM EST us [facility] External Provider LAB BLO OD ORDERABLES Final Result [facility] [address] [place] [phone] [phone] documented in this encounter Visit Diagnoses Not on filedocumented in this encounter Care Teams Scratcher Tender Relationship Specialty Start Date End Date Beckie Danielle DO [address] [place] [address] PCP - General Family Medicine 11/28/13 Rainer Bishop, PharmD [address] [place] [phone] Pharmacist Internal Medicine 01/12/23 06/07/23 Mandi Murdock PharmD [address] [place] [address] Pharmacist Internal Medicine 06/08/23 05/29/24 documented as of this encounter
--- OUTSIDE RECORDS SUMMARY | 2025-01-03 15:10 | XMS_ITS | Encounter Summary ---
Author Organization [employer] Address 75 [facility] 7t [place] [address] Care Team Providers Care Tree Thinner Name Role Phone Beckie Danielle DO Primary Care Provider + [phone] Reason for Visit * Reason Comments Med Refill Encounter Details Date Type Department Care Team ([facility] st Contact Info) Description 09/10/2024 Refill [facility] MED[facility]INE [address] [place], [place] [phone] Beckie Danielle DO [address] [place], [place] [phone] Type 2 diabetes mellitus without complication, without long-term current use of insulin ([facility]) Social History Tobacco [...] 11:00 AM EST Office Visit [facility] MEDICINE [address] [place] [address] Beckie Danielle DO [address] [place] [address] documented as of this encounter Goals Goal [...] without long-term current use of insulin ([facility]) documented in this encounter Additional Health Concerns Assessment Noted Time PHQ-9 Depression Total Score: 0 01/08/20 10:31 AM EST documented as of this encounter Care Teams Tree Thinner Relationship Specialty Start Date End Date Beckie Danielle DO [address] [place] [address] PCP - General Family Medicine 11/28/13 documented as of this encounter
--- OUTSIDE RECORDS SUMMARY | 2025-01-03 15:10 | XMS_ITS | Encounter Summary ---
Author Organization [employer] Address [address] [facility] 7t [place] [address] Care Team Providers Care Drafter Automotive Design Layout Name Role Phone Lolis Beckie Primary Care Provider + [phone] Encounter Details Date Type Department Care Team [...] Office Visit [facility] MEDICINE [address] [place] [address] Beckie Danielle DO [address] [place], [place] [phone] documented as of this encounter Goals Goal [...] documented as of this encounter Care Teams Drafter Automotive Design Layout Relationship Specialty Start Date End Date Beckie Danielle DO [address] [place], [place] [phone] PCP - General Family Medicine 11/28/13 documented as of this encounter
--- OUTSIDE RECORDS SUMMARY | 2025-01-03 15:10 | XMS_ITS | Encounter Summary ---
Author Organization [employer] Address 75 [facility] 7t [place] [address] Care Team Providers Care Netsuite Developer Name Role Phone Beckie Danielle DO Primary Care Provider + [phone] Reason for Visit * Reason Onset Date Comments Appointment Request 10/23/2024 Encounter Details Date Type Department Care Team ([facility] st Contact Info) Description 10/23/2024 Telephone [facility] MEDICINE [address] [place] [address] Beckie Danielle DO [address] [place] [address] Appointment Request Social History Tobacco Use Types [...] reschedule CDTM visit. Please contact pt at [phone]. documented in this encounter Plan of Treatment Upcoming Encounters Date Type Department Care Team (Late st Contact Info) Description 01/04/2025 11:00 AM EST Office Visit [facility] MEDICINE [address] [place], [place] [phone] Beckie Danielle DO [address] [place] [address] documented as of this encounter Goals Goal [...] documented as of this encounter Care Teams Netsuite Developer Relationship Specialty Start Date End Date Beckie Danielle DO [address] [place] [address] PCP - General Family Medicine 11/28/13 documented as of this encounter
--- OUTSIDE RECORDS SUMMARY | 2025-01-03 15:10 | XMS_ITS | Clinical Summary ---
Author Organization [employer] Address [address] [place] [address] 7t [place] [address] Care Team Providers Care Dowel Setting Machine Operator Name Role Phone Beckie Danielle DO Primary Care Provider [phone] Allergies No known active allergies Medications * [...] complication, without long-term current use of insulin ([facility]) Inject 1 each under the [...] complication, without long-term current use of insulin ([facility]) 1 each by Other route [...] 12/02/2023 Overview (12/02/2023): Scrotal US on 2018 ([facility]) Assessment & Plan (12/02/2023 2:20 PM EST): [...] Care Team Description 01/01/2025 Travel 12/06/2024 Refill [facility] PEDIATRICS [address] [place] [address] Beckie Danielle DO Type 2 diabetes mellitus without complication, without long-term current use of insulin ([facility]) 11/23/2024 Telephone [facility] MEDICINE [address] [place] [address] Rowan Maurer [place] Recall Appt. 11/23/2024 Telephone [facility] MEDICINE [address] [place] [address] Rowan Maurer [place] Recall Appt. 11/23/2024 Travel 11/21/2024 Refill [facility] [place] [address] Beckie Danielle DO Essential hypertension; Type 2 diabetes mellitus without complication, without long-term current use of insulin ([facility]) 11/21/2024 Telephone [facility] MEDICINE [address] [place] [address] Mandi Murdock, PharmD 10/23/2024 Telephone [facility] [place] [address] Beckie Danielle DO 10/23/2024 Telephone [facility] [place] [address] Beckie Danielle DO Appointment Request 10/22/2024 Refill [facility] [place] [address] Beckie Danielle DO from Last 3 Months Immunizations Name Administration Dates Next Due Hep B, adult 10/27/2017,10/08/2015,07/29/2014 Influenza injectable quadriv alent IIV4 with preservative 10/27/2017,10/08/2015 Influenza injectable quadriv alent preservative free 09/06/2022,10/12/2021,11/02/2019,11/16 Influenza, IIV3, injectable 07/29/2014 Pfizer Covid-19 Vaccine 12+ paul-sucrose ([place]ell Cap) 03/16/2022 Pneumococcal Conjugate PCV 20 06/08/2023 [...] Description 01/04/2025 11:00 AM EST Office Visit [facility] MEDICINE [address] [place] [address] Beckie Danielle DO 230 [place], [place] [phone] Health Maintenance Due Date Last Done Comments [...] EST Narrative 10/23/2024 12:07 PM EST ? [facility] ?[address] ?[place] [address] ? Ultrasound Report ? Signed ? Patient: Maicol Fernandez ?MR#: [id number] ?? 6 ? : 1960 ?Acct:[id number] ? Age/Sex: 63 / M ?ADM Date: 10/16/24 ? Loc: HO.US ? Attending Dr: Venancio JESUS ? Ordering Physician: Venancio Mathew ?? Date of Service: 10/16/24 ?? Procedure(s): US scrotum ?? Accession Number(s): [id number] ? cc: Beckie Danielle DO; Venancio Mathew [...] DD/ 1501 ? TD/TT: 10/16/24 1514 ? Derrick Hand: ? Procedure Note Gabino Aranda - 10/23/[address] [address] Ultrasound Report Signed Patient: Onofre Fernandez#: [id number] 6 : 9Acct:[id number] Age/Sex: 63 / MADM Date: 10/16/24 Loc: HO.US Attending Dr: Venancio JESUS Ordering Physician: Venancio Mathew Date of Service: 10/16/24 Procedure(s): US scrotum Accession Number(s): [id number] cc: Beckie Danielle DO; Venancio Mathew EXAMINATION: [...] by: Mart Gold MD 10/23/2024 12:04 PM [facility] Dictated By: Mart Gold MD Signed By: <Electronically signed by Mart Gold MD in OV> 10/23/24 1204 DD/ 1501 TD/TT: 10/16/24 1514 Derrick Hand: [facility] External Provider IMG US PROCEDURES Final Result * (ABNORMAL) POCT HGB A1C (05/29/2024 11:24 AM EDT) Hemoglobin A1C 7.9(A) 4.0 - 6.0 % QC Media Lot # [id number] Lot# Expiration Date [id number] Blood 05/29/2024 11:2 4 AM EDT Beckie Lolis DO POINT OF CARE TEST ENTER/PRIYA T ORDERABLES Final Result * Albumin, Random Urine W/Creatinine (11/17/2023 2:10 PM EST) Creatinine, Urine 165.19 mg/dL [facility] Microalbumin Urine 19.0 mg/L [facility] Microalbum Creatinine Ratio Ur 11.5 <30 ug/mg cr [facility] Comment:Albumin/Creatinine R atio Reference Ranges: Normal: < 30 ug/mg creatinine Microalbuminuria: 30 - 300 ug/mg creatinineClinical Albuminuria: > 300 ug/mg creatinine 11/17/2023 2:10 PM EST 11/17/2023 4:07 PM EST Beckie Danielle DO LAB URINE ORDERABLES Final R esult [facility] [address] [place] [phone] * (ABNORMAL) Lipid Panel, Standard (11/17/2023 2:10 PM EST) Triglycerides 252(H) <150 mg/dL [facility] Comment:Desirable Triglyceri de: less than 150 mg/dLBorderline High Triglyceride 150-199 mg/dLHigh Triglyceride: 200-499 mg/dLVery High Triglyceride: greater than or equal to 5OO mg/dL Cholesterol 163 <200 mg/dL [facility] Comment:Desirable Cholestero l: less than 200 mg/dLBorderline High Cholesterol: 200-239 mg/dLHigh Cholesterol: greater than 239 mg/dL LDL Cholesterol Calculated 79 <100 mg/dL [facility] Comment:Desirable LDL: less than 100 mg/dLNear Optimal/Above Optimal LDL: 110- 129 mg/dLBorderline High LDL: 130-159 mg/dLHigh LDL: 160-189 mg/dLVery High LDL: greater than or equal to 190 mg/dL HDL Cholesterol 34(L) >40 mg/dL [facility] Comment:Desirable HDL: great er than 40 mg/dL Note: This HDL assay may give artificially low results in patients with liver disease. Blood Venous blood specimen / Unknown 11/17/2023 2:10 PM EST 11/17/2023 4:09 PM EST Beckie Lolis [employer] LAB BLOOD ORDERABLES Final R esult Performing Organization Address City/[facility]/ZIP Co de Phone Number [facility] [address] [place] [phone] * Hepatitis C Antibody with Reflex to HCV RNA,PCR w/Reflex to Genotype, LiPA (01/07/2023 11:37 AM EST) Hepatitis C Antibody NON-REACT ALVINA NON-REACT ALVINA [employer] [place] [employer] [facility] Index 0.03 <1.00 [employer] [place] [employer] [facility] Comment: HCV antibody was non-reactive. There is no laboratory evidence of HCV infection. In most cases, no further action is required. However, if recent HCV exposure is suspected, a test for HCV RNA (test code 65331) is suggested. For additional information, please refer to http://education.Visualnest/faq/SIW185 (This link is being provided for informational/ educational purposes only.) 01/07/2023 11:3 7 AM EST 01/07/2023 11:38 AM EST Narrative [facility] - 01/10/2023 12:40 PM EST FASTING:YES PATIENT UNABLE TO VOID; ADVISED TO RETURN FOR COLLECTION. FASTING: YES Beckie Lolis [employer] LAB BLOOD ORDERABLES Final R esult [facility] [address] [facility], [address], [place] [address] [employer] [place] [employer] [address] [facility], (N[address]) [place] [address] from Last 3 Months or Most Recently Relevant to Health Maintenance Insurance [address] [place] [id number] [facility] [address] [place] [phone] [place] [phone] [place] [phone] Care Teams Dowel Setting Machine Operator Relationship Specialty Start Date End Date Beckie Danielle DO [address] [place] [address] PCP - General Family Medicine 11/28/13
--- OUTSIDE RECORDS SUMMARY | 2025-01-03 15:10 | XMS_ITS | Encounter Summary ---
Author Organization [employer] Address 75 [facility] 7t [place] [address] Care Team Providers Care Manufacturing Project Manager Name Role Phone Beckie Danielle DO Primary Care Provider + [phone] Reason for Visit * Reason Comments Med Refill Encounter Details Date Type Department Care Team ([facility] st Contact Info) Description 12/06/2024 Refill [facility] PEDIATRICS [address] [place], [place] [phone] Beckie Danielle DO 230 [place], [place] [phone] Type 2 diabetes mellitus without complication, without long-term current use of insulin ([facility]) Social History Tobacco Use Types Packs/Day Years [...] Description 01/04/2025 11:00 AM EST Office Visit [facility] MEDICINE [address] [place] [address] Beckie Danielle DO [address] [place] [address] documented as of this encounter Goals Goal [...] complication, without long-term current use of insulin ([facility]) documented in this encounter Additional Health Concerns Assessment Noted Time PHQ-9 Depression Total Score: 0 01/08/20 10:31 AM EST documented as of this encounter Care Teams Manufacturing Project Manager Relationship Specialty Start Date End Date Beckie Danielle DO 230 [place] [address] PCP - General Family Medicine 11/28/13 documented as of this encounter
--- OUTSIDE RECORDS SUMMARY | 2025-01-03 15:10 | XMS_ITS | Encounter Summary ---
Author Organization [employer] Address 75 [facility] 7t [place] [address] Care Team Providers Care Properties Supervisor Name Role Phone Beckie Danielle DO Primary Care Provider DelRainer ovalle PharmD Unavailable Unavail able Mandi Murdock PharmD Unavailable Reason for Visit * Reason Comments Med Refill Encounter Details Date Type Department Care Team (Late st Contact Info) Description 01/14/2023 Refill [facility] & PEDS [address] [place] [address] Beckie Danielle DO [address] [place] [address] Erectile dysfunction, unspecified erectile dysfunction type Social [...] Description 01/04/2025 11:00 AM EST Office Visit [facility] MED[facility] 230 [facility] [place] [address] Beckie Danielle DO 230 [place] [address] documented as of this encounter Goals Goal [...] documented as of this encounter Care Teams Properties Supervisor Relationship Specialty Start Date End Date Beckie Danielle DO 230 [place] [address] PCP - General Family Medicine 11/28/13 Rainer Bishop, PharmD [address] [place] [address] Pharmacist Internal Medicine 01/12/23 06/07/23 Mandi Murdokc PharmD [address] [place] [phone] Pharmacist Internal Medicine 06/08/23 05/29/24 documented as of this encounter
--- OUTSIDE RECORDS SUMMARY | 2025-01-03 15:10 | XMS_ITS | Encounter Summary ---
Author Organization [employer] Address 75 [facility] 7t [place] [address] Care Team Providers Care Primary Education Professor Name Role Phone Beckie Danielle DO Primary Care Provider [phone] Mandi Murdock PharmD Unavailable [phone] Reason for Visit * Reason Onset Date Comments Appointment Request 05/08/2024 Encounter Details Date Type Department Care Team ([facility] st Contact Info) Description 05/08/2024 Telephone [facility] MEDICINE 230 [place] [address] Beckie Danielle DO 230 [place], [place] [phone] Appointment Request Social History Tobacco Use Types [...] by nurse once insurance is good call [facility] to schedule appt documented in this encounter Plan of Treatment Upcoming Encounters Date Type Department Care Team (Late st Contact Info) Description 01/04/2025 11:00 AM EST Office Visit [facility] MEDICINE [address] [place] [address] Beckie Danielle DO [address] [place] [address] documented as of this encounter Goals Goal [...] documented as of this encounter Care Teams Primary Education Professor Relationship Specialty Start Date End Date Beckie Danielle DO 230 [place] [address] PCP - General Family Medicine 11/28/13 Mandi Murdock PharmD [address] [place] [address] Pharmacist Internal Medicine 06/08/23 05/29/24 documented as of this encounter
[2025-01-11 14:32] VITALS: BMI 32.2
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
[2025-01-15 07:04] VITALS: BP 148/94; PULSE 63; RESP 18; TEMP 36.4; O2SAT 97; BMI 31.0
[2025-01-15 07:14] LABS: Glucose, Whole Blood 146 mg/dL (60-115)
[2025-01-15] MEDS: Lactated Ringers 1,000 ML 100 ML IVCONT (07:32)
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
--- NOTE | 2025-01-15 08:57 | HO.OPN-COLON ---
Colonoscopy Operative Note Operative Note Date of Service: 01/15/25 Narrative: Operative Information Procedure Description: Colonoscopy Indication: screening Anesthesia: MAC COLONOSCOPY Instrument: Olympus variable stiffness pediatric scope 190L Colonoscopy Monitoring: Vital signs and clinical assessment, continuous EKG monitoring, Pulse oximetry, Carbon Dioxide monitoring and blood pressure monitoring were done throughout the procedure. Colon withdrawal time was 8 minutes. Procedure: The patient was placed in the left lateral decubitis position and pre-procedure medications were administered. After a digital rectal examination of the ano-rectum, the video colonoscope was inserted into the rectum and advanced through the colon to the cecum/TI. The colonoscope was slowly withdrawn in a retrograde panoramic fashion and the colon mucosa was carefully examined including a retroflexed view of the rectum. Findings and interventions are described below. Procedure Difficulty: easy Findings: Terminal Ileum-normal Cecum:normal Ascending Colon: normal Transverse Colon - 8 mm sessile polyp removed with cold snare Descending Colon: moderate severe diverticulosis Sigmoid Colon: moderate severe diverticulosis Rectum: Retroflexion with small internal hemorrhoids seen, grade I Anorectum - normal Intervention: cold snare Colon preparation: [place] Bowel Preparation Scale Right colon; 2 Transverse colon: 2 Left colon; 2 (0 = Unprepared colon segment with mucosa not seen due to solid stool that cannot be cleared. 1 = Portion of mucosa of the colon segment seen, but other areas of the colon segment not well seen due to staining, residual stool and/or opaque liquid. 2 = Minor amount of residual staining, small fragments of stool and/or opaque liquid, but mucosa of colon segment seen well. 3 = Entire mucosa of colon segment seen well with no residual staining, small fragments of stool or opaque liquid) Impression and Post Procedure Diagnosis: diverticulosis colon polyps internal hemorrhoids Plan: High fiber diet leaflet Avoid straining at stool, epsom salts and sitz bath, anusol supps or cream Repeat Colonoscopy in 5 years due to polyp or earlier if clinically indicated Above findings were reviewed with the patient and relevant handouts were provided if indicated.
[2025-01-15 09:01] VITALS: BP 86/63; PULSE 65; RESP 16; TEMP 36.2; O2SAT 96
[2025-01-15 09:16] VITALS: BP 106/66; PULSE 65; RESP 16; O2SAT 97
[2025-01-15 09:29] VITALS: BP 116/76; PULSE 67; RESP 16; TEMP 36.7; O2SAT 97
== END 2025-01-15 09:40 | disposition home or self-care (01) ==
PROVIDERS: PCP Family Medicine; Visit Provider Internal Medicine Gastroenterology
PROC: 0DJD8ZZ Inspection of Lower Intestinal Tract, Via Natural or Artificial Opening Endoscopic (ICD-10-PCS; CPT 45378; principal; 2025-01-15 08:20)
DX: Z12.11 Encounter for screening for malignant neoplasm of colon (principal); K57.30 Diverticulosis of large intestine without perforation or abscess without bleeding; K64.0 First degree hemorrhoids; E11.9 Type 2 diabetes mellitus without complications; I10 Essential (primary) hypertension; Z79.82 Long term (current) use of aspirin; Z79.85 Long-term (current) use of injectable non-insulin antidiabetic drugs
CPT/HCPCS: 45385; 82947; 88305; J2704

== ENCOUNTER → 2025-01-15 06:49 | Outpatient (BNV) | payer OTHER, SELFPAY | PROVIDERS: PCP Family Medicine; Visit Provider Internal Medicine Gastroenterology | DX: Z12.11 Encounter for screening for malignant neoplasm of colon (principal); D12.3 Benign neoplasm of transverse colon; K57.90 Diverticulosis of intestine, part unspecified, without perforation or abscess without bleeding; K64.0 First degree hemorrhoids | CPT/HCPCS: 45385 ==

== ENCOUNTER 2025-01-30 13:49 | Outpatient (REF) | payer OTHER, SELFPAY ==
--- NOTE | ~2025-01-30 | US_ITS ---
CLINICAL HISTORY: b l scrotal pain s p b l hydrocelectomy US scrotum with Doppler Comparison: 10/16/2024 Technique: Real time sonographic imaging, including color-flow imaging and spectral analysis, was performed by the cheese cooker. Multiple service center representative static images were saved for review. Findings: Right testicle normal size and echotexture, 3.7 x 1.9 x 3.6 Cm. Normal color flow and spectral tracing. Left testicle normal size and echotexture, 3.8 x 2.0 x 2.7 cm. Normal color flow and spectral tracing. 2.1 x 2.8 cm multiseptated abnormality superior right scrotum. This is within or adjacent to right epididymis. Differential would include acute versus prior infectious etiology. Recent trauma would also be in the differential. Please correlate with history and physical exam. No significant left epididymal abnormalities. No hydroceles or varicoceles. Impression: Indeterminate 2.8 cm multiseptated abnormality in or adjacent to right epididymis Please correlate regarding history of current, recent or prior infection or trauma No other significant abnormality This document has been electronically signed by: Franck Figueroa MD on 01/30/2025 19:05:44
--- NOTE | ~2025-01-30 | US_ITS ---
EXAMINATION: BILATERAL CAROTID ULTRASOUND WITH DOPPLER HISTORY: f/u carotid stenosis COMPARISON: Comparison is made with the prior examination dated 12/17/2020. TECHNIQUE: Real time and Color and Spectral doppler ultrasonography of the carotid and vertebral arteries was performed in multiple planes. FINDINGS: There is a small amount of plaque at the carotid bifurcations. VERTEBRAL FLOW DIRECTION: The right vertebral artery is not visualized. The left vertebral artery demonstrates antegrade flow. PEAK SYSTOLIC VELOCITIES (in cm/sec): RIGHT: CCA: Prox: 74.6 Dist: 140 ICA: Prox: 75.4 Mid: 114 Dist: 52.7 ICA/CCA Ratio: 0.81 ECA: 221 Peak ICA EDV: 41.6 LEFT: CCA: Prox: 133 Dist: 116 ICA: Prox: 87.8 Mid: 80.7 Dist: 147 ICA/CCA Ratio: 1.11 ECA: 171 Peak ICA EDV: 51.6 US/US carotid duplex BI IMPRESSION: Findings consistent with 0-49% stenosis of the bilateral internal carotid arteries. Electronically signed by: Kamlesh Metzger MD 01/30/2025 03:24 PM EDT
== END 2025-01-30 13:50 | disposition home or self-care (01) ==
LOC: HO.US 13:49
PROVIDERS: PCP Family Medicine; Visit Provider Family Medicine
DX: N50.82 Scrotal pain (principal); I65.21 Occlusion and stenosis of right carotid artery
CPT/HCPCS: 76870; 93880

== ENCOUNTER → 2025-01-30 13:51 | Outpatient (BNV) | payer OTHER, SELFPAY | PROVIDERS: PCP Family Medicine; Visit Provider Radiology Diagnostic Radiology | DX: N50.82 Scrotal pain (principal) | CPT/HCPCS: 76870; 93880; 93975 ==

== ENCOUNTER 2025-02-07 14:47 | Outpatient (AMB) | payer OTHER, SELFPAY ==
[2025-02-07 14:50] VITALS: BP 114/70; PULSE 67; BMI 31.3
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
--- OUTSIDE RECORDS SUMMARY | 2025-02-07 16:16 | XMS_ITS | Clinical Summary ---
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 Name Role Phone Beckie Danielle DO Primary Care Provider [phone] Allergies No known active allergies Medications * [...] mellitus with other specified complication, unspecified whether longwall machine operator helper insulin use (CMS/HCC) TAKE 1 TABLET BY MOUTH EVERY DAY 90 tablet 3 4 Active metFORMIN XR (Glucophage-XR) 500 MG [...] complication, without long-term current use of insulin ([facility]) Inject 1 each under the skin [...] complication, without long-term current use of insulin ([facility]) Use to test blood sugar twice daily as directed 100 strip 11 5 Active FreeStyle lancetsIndication s:Type 2 diabetes mellitus without complication, without long-term current use of insulin ([facility]) 1 each by Other route 2 times daily. Use to test blood sugar twice daily as directed 100 each 5 Active Dulaglutide (Trulicity) 1.5 MG/0.5ML solution auto-injector Inject 1.5 mg under the skin 1 (one) time per week. 2 mL 5 Active amLODIPine (Norvasc) 10 MG tablet Take 1 tablet (10 mg) by mouth Once per day. 30 tablet 11 5 01/04/20 26 Active cholecalciferol (Vitamin D-3) 50 MCG (1999) capsule Take 1 capsule (50 mcg) by mouth Once per day. 90 capsule 3 5 01/11/20 26 Active Active Problems Problem Noted Date Diagnosed Date Erectile dysfunction 12/02/2023 Assessment & Plan (12/02/2023 9:53 AM EST): Reportedly not improving w Viagra Explained it could be related to DM Refer to urology Hydrocele in adult 12/02/2023 Overview (12/02/2023): [place]rotal [place] on 2018 [place] Assessment & Plan (12/02/2023 2:20 PM EST): [...] will refer to urology Candidiasis of perineum 12/02/2023 07/2 01/2024 Assessment & Plan (12/02/2023 9:55 AM [...] Encounters Date Type Department Care Team Description 02/01/2025 Telephone [facility] [address] Beckie Danielle DO Results 01/10/2025 Refill [facility] [address] Beckie Danielle DO 01/04/2025 11:00 AM EST Office Visit [facility] [address] Beckie Danielle DO Type 2 diabetes mellitus without complication, without long-term current use of insulin ([facility]) (Primary Dx); Essential hypertension; Hyperlipidemia LDL goal <70; Obstructive sleep apnea; Stenosis of right carotid artery; Chronic constipation; Subclinical hypothyroidism; History of squamous cell carcinoma; Scrotal pain; Healthcare maintenance 01/04/2025 Telephone [facility] [address] Beckie Danielle DO FYI 01/04/2025 Travel 01/01/2025 Travel 12/06/2024 Refill [facility] [place] [address] Beckie Danielle DO Type 2 diabetes mellitus without complication, without long-term current use of insulin (CMS/HCC) 11/23/2024 Telephone [facility] [address] Rowan Maurer MA Recall Appt. 11/23/2024 Telephone [facility] [address] Rowan Maurer MA Recall Appt. 11/23/2024 Travel 11/21/2024 Refill [facility] [address] Beckie Danielle DO Essential hypertension; Type 2 diabetes mellitus without complication, without long-term current use of insulin ([facility]) 11/21/2024 Telephone [facility] [address] [place] [address] [phone] Mandi Murdock, DoraD from Last 3 Months Immunizations Name Administration [...] or Tdap) 07/29/2024 07/29/2014 Diabetes: Hemoglobin A1C 04/03/2025 025, 01/04/2025, 05/29/2024, Additional history exists SDOH Screening 05/21/2025 05/21/2024 Alcohol/Substance Use Screening 01/04/2026 01/04/2025 Depression Screening 01/04/2026 01/04/2025, 01/04/20 Diabetes: Urine Protein Screening 01/04/2026 01/04/2025, 11/17/2023, 10/26/2021, Additional history exists Lipid Panel 01/04/2026 01/04/2025, 11/07, 11/17/2023, Additional history exists Tobacco Screening 01/04/2026 01/04/2025 Hepatitis B Vaccines Completed 10/27/2017, 10/08/2015, 07/29/2014 Pneumococcal Vaccine: 50+ Years Completed 06/08/2023, 07/29/2014 RSV Patients and Patients Aged 60 years or older Completed 07/23/2024 Zoster Vaccines Completed 07/23/2024, 06/08/2023 Hepatitis C Screening Completed 01/04/2025 , 01/07/2023, 10/26/2021, Additional history exists HIB Vaccines Aged Out No longer eligi [...] 118/70(2024 11:35 AM EST) No Rainer Bishop PharmD Record your blood pressure once per day Blood Pressure No Mandi Murdock PharmD Patient will adhere to medication regimen General No Mandi Murdock PharmD Hemoglobin A1c < 7 Result Component 7.5( 12:21 PM EST) No Rainer Bishop PharmD Record your blood sugar as directed Result Component No Mandi Murdock PharmD Procedures Procedure Name Priority Date/Time Associated Diagnosis Comments US SCROTUM Routine 01/30/2025 7:05 PM EDT Scrotal pain VASC US CAROTID ARTERY DUPLEX BILATERAL Routine 01/30/2025 2:07 PM EDT Stenosis of right carotid artery HEMATOXYLIN AND EOSIN STAIN Routine 01/15/2025 8:51 AM EDT Type 2 diabetes mellitus without complication, without long-term current use of insulin (CMS/HCC) GLUCOSE, WHOLE BLOOD Routine 01/15/2025 7:09 AM EDT Type 2 diabetes mellitus without complication, without long-term current use of insulin (CMS/HCC) HEPATITIS B CORE AB TOTAL Routine 01/04/2025 12:21 PM EST Type 2 diabetes mellitus without complication, without long-term current use of insulin (CMS/HCC) Essential hypertension Hyperlipidemia LDL goal <70 Obstructive sleep apnea Stenosis of right carotid artery Elevated TSH History of squamous cell carcinoma Healthcare maintenance Encounter for screening for other viral diseases HEPATITIS B SURFACE ANTIBODY, QUALITATIVE Routine 01/04/2025 12:21 PM EST Type 2 diabetes mellitus without complication, without long-term current use of insulin (CMS/HCC) Essential hypertension Hyperlipidemia LDL goal <70 Obstructive sleep apnea Stenosis of right carotid artery Elevated TSH History of squamous cell carcinoma Healthcare maintenance Encounter for screening for other viral diseases HEPATITIS C AB W/REFL TO HCV RNA, QN, PCR Routine 01/04/2025 12:21 PM EST Type 2 diabetes mellitus without complication, without long-term current use of insulin (CMS/HCC) Essential hypertension Hyperlipidemia LDL goal <70 Obstructive sleep apnea Stenosis of right carotid artery Elevated TSH History of squamous cell carcinoma Healthcare maintenance HIV 1/2 ANTIGEN/ANTIBODY, FOURTH GENERATION W/RFL Routine 01/04/2025 12:21 PM EST Type 2 diabetes mellitus without complication, without long-term current use of insulin (CMS/HCC) Essential hypertension Hyperlipidemia LDL goal <70 Obstructive sleep apnea Stenosis of right carotid artery Elevated TSH History of squamous cell carcinoma Healthcare maintenance Unspecified sexually transmitted disease HEPATITIS B SURFACE ANTIGEN, EIA Routine 01/04/2025 12:21 PM EST Type 2 diabetes mellitus without complication, without long-term current use of insulin (CMS/HCC) Essential hypertension Hyperlipidemia LDL goal <70 Obstructive sleep apnea Stenosis of right carotid artery Elevated TSH History of squamous cell carcinoma Healthcare maintenance Encounter for screening for other viral diseases ALBUMIN, RANDOM URINE W/CREATININE Routine 01/04/2025 12:21 PM EST Type 2 diabetes mellitus without complication, without long-term current use of insulin (CMS/HCC) Essential hypertension Hyperlipidemia LDL goal <70 Obstructive sleep apnea Stenosis of right carotid artery Elevated TSH History of squamous cell carcinoma Healthcare maintenance CBC Routine 01/04/2025 12:21 PM EST Type 2 diabetes mellitus without complication, without long-term current use of insulin (CMS/HCC) Essential hypertension Hyperlipidemia LDL goal <70 Obstructive sleep apnea Stenosis of right carotid artery Elevated TSH History of squamous cell carcinoma Healthcare maintenance BASIC METABOLIC PANEL Routine 01/04/2025 12:21 PM EST Type 2 [...] History of squamous cell carcinoma Healthcare maintenance HEPATIC FUNCTION PANEL Routine 01/04/2025 12:21 PM EST Type 2 diabetes mellitus without complication, without long-term current use of insulin (CMS/HCC) Essential hypertension Hyperlipidemia LDL goal <70 Obstructive sleep apnea Stenosis of right carotid artery Elevated TSH History of squamous cell carcinoma Healthcare maintenance TSH Routine 01/04/2025 12:21 PM EST Type 2 diabetes mellitus without complication, without long-term current use of insulin (CMS/HCC) Essential hypertension Hyperlipidemia LDL goal <70 Obstructive sleep apnea Stenosis of right carotid artery Elevated TSH History of squamous cell carcinoma Healthcare maintenance LIPID PANEL, STANDARD Routine 01/04/2025 12:21 PM EST Type 2 diabetes mellitus without complication, without long-term current use of insulin (CMS/HCC) Essential hypertension Hyperlipidemia LDL goal <70 Obstructive sleep apnea Stenosis of right carotid artery Elevated TSH History of squamous cell carcinoma Healthcare maintenance VITAMIN D,25-OH,TOTAL,IA Routine 01/04/2025 12:21 PM EST Type 2 diabetes mellitus without complication, without long-term current use of insulin (CMS/HCC) Essential hypertension Hyperlipidemia LDL goal <70 Obstructive sleep apnea Stenosis of right carotid artery Elevated TSH History of squamous cell carcinoma Healthcare maintenance Vitamin D deficiency T4, FREE Routine 01/04/2025 12:21 PM EST Type 2 diabetes mellitus without complication, without long-term current use of insulin (CMS/HCC) Essential hypertension Hyperlipidemia LDL goal <70 Obstructive sleep apnea Stenosis of right carotid artery Elevated TSH History of squamous cell carcinoma Healthcare maintenance CHLAMYDIA/N. GONORRHOEAE RNA, TMA, UROGENITAL Routine 01/04/2025 12:21 PM EST Type 2 diabetes mellitus without complication, without long-term current use of insulin ([facility]/HCC) Essential hypertension Hyperlipidemia LDL goal <70 Obstructive sleep apnea Stenosis of right carotid artery Elevated TSH History of squamous cell carcinoma Healthcare maintenance Encounter for screening for infections with a predominantly sexual mode of transmission POCT GLYCATED HEMOGLOBIN, TOTAL Routine 01/04/2025 11:38 AM EST Type 2 diabetes mellitus without complication, without long-term current use of insulin ([facility]/HCC) POCT GLUCOSE Routine 01/04/2025 11:38 AM EST Type 2 diabetes mellitus without complication, without long-term current use of insulin (CMS/HCC) from Last 3 Months Results * US Scrotum (01/30/2025 7:05 PM EDT) Anatomical Region Laterality Modality Body Ultrasound 01/30/2025 7:05 PM EDT Narrative 01/30/2025 7:07 PM EDT ? [facility] ?[address] ?[place] [address] ? Ultrasound Report ? Signed ? Patient: Rebecca,Maicol ?MR#: [id number] ?? 6 ? : 1960 ?Acct:[id number] ? Age/Sex: 64 / M ?ADM Date: 01/30/25 ? Loc: HO.US ? Attending Dr: Beckie Danielle DO ? Ordering Physician: Beckie Danielle DO ?? Date of Service: 01/30/25 ?? Procedure(s): US scrotum ?? Accession Number(s): [id number] ? cc: Beckie Danielle DO ? CLINICAL HISTORY: b l scrotal pain s p b l hydrocelectomy ? US scrotum with Doppler ? Comparison: 10/16/2024 ? Technique: Real time sonographic imaging, including color-flow imaging and ?? spectral analysis, was performed by the cobbler apprentice. ?? Multiple agency service representative static images were saved for review. ? Findings: ?? Right testicle normal size and echotexture, 3.7 x 1.9 x 3.6 Cm. Normal ?? color flow and spectral tracing. ?? Left testicle normal size and echotexture, 3.8 x 2.0 x 2.7 cm. Normal ?? color flow and spectral tracing. ? 2.1 x 2.8 cm multiseptated abnormality superior right scrotum. ?? This is within or adjacent to right epididymis. ?? Differential would include acute versus prior infectious etiology. ?? Recent trauma would also be in the differential. ?? Please correlate with history and physical exam. ? No significant left epididymal abnormalities. ?? No hydroceles or varicoceles. ? Impression: ? Indeterminate 2.8 cm multiseptated abnormality in or adjacent to right ?? epididymis ? Please correlate regarding history of current, recent or prior infection ?? or trauma ? No other significant abnormality ? This document has been electronically signed by: Franck Figueroa MD on ?? 01/30/2025 19:05:44 ? Dictated By: ?Franck Figueroa MD ? Signed By: ?<Electronically signed by Franck Figueroa MD in OV> ? 01/30/251905 ? DD/ 04 ? TD/TT: 01/30/25 1905 ? Seed Buyer: ? Procedure Note Donisaacter, Image - 01/30/2025 [place] [address] Ultrasound Report Signed Patient: Onofre Fernandez#: [id number] 6 : 9Acct:[id number] Age/Sex: 64 / MADM Date: 01/30/25 Loc: HO.US Attending Dr: Beckie Danielle DO Ordering Physician: Beckie Danielle DO Date of Service: 01/30/25 Procedure(s): US scrotum Accession Number(s): [id number] cc: Beckie Danielle DO CLINICAL HISTORY: b l scrotal pain s p b l hydrocelectomy US scrotum with Doppler Comparison: 10/16/2024 Technique: Real time sonographic imaging, including color-flow imaging and spectral analysis, was performed by the cobbler apprentice. Multiple agency service representative static images were saved for review. Findings: Right testicle normal size and echotexture, 3.7 x 1.9 x 3.6 Cm. Normal color flow and spectral tracing. Left testicle normal size and echotexture, 3.8 x 2.0 x 2.7 cm. Normal color flow and spectral tracing. 2.1 x 2.8 cm multiseptated abnormality superior right scrotum. This is within or adjacent to right epididymis. Differential would include acute versus prior infectious etiology. Recent trauma would also be in the differential. Please correlate with history and physical exam. No significant left epididymal abnormalities. No hydroceles or varicoceles. Impression: Indeterminate 2.8 cm multiseptated abnormality in or adjacent to right epididymis Please correlate regarding history of current, recent or prior infection or trauma No other significant abnormality This document has been electronically signed by: Franck Figueroa MD on 01/30/2025 19:05:44 Dictated By: Franck Figueroa MD Signed By: <Electronically signed by Franck Figueroa MD in OV> 01/30/251905 DD/ 04 TD/TT: 01/30/251904 Seed Buyer: us Beckie Lolis DO IMG US PROCEDURES Final Resu lt * Vascular US carotid artery duplex bilateral (01/30/2025 2:07 PM EDT) 01/30/2025 2:07 PM EDT Narrative [facility] - 01/30/2025 3:26 PM EDT ? [facility] ?[address] ?[place] [address] ? Ultrasound Report ? Signed ? Patient: Maicol Fernandez ?MR#: [id number] ?? 6 ? : 1960 ?Acct:[id number] ? Age/Sex: 64 / M ?ADM Date: 01/30/25 ? Loc: HO.US ? Attending Dr: Beckie Danielle DO ? Ordering Physician: Beckie Danielle DO ?? Date of Service: 01/30/25 ?? Procedure(s): US carotid duplex BI ?? Accession Number(s): [id number] ? cc: Beckie Danielle DO ? EXAMINATION: ??BILATERAL CAROTID ULTRASOUND WITH DOPPLER ? HISTORY: ??f/u carotid stenosis ? COMPARISON: Comparison is made with the prior examination dated ?? 12/17/2020. ? TECHNIQUE: Real time and Color and Spectral doppler ultrasonography of ?? the carotid and vertebral arteries was performed in multiple planes. ? FINDINGS: ??There is a small amount of plaque at the carotid ?? bifurcations. ? VERTEBRAL FLOW DIRECTION: The right vertebral artery is not visualized. ?? The left vertebral artery demonstrates antegrade flow. ? PEAK SYSTOLIC VELOCITIES (in cm/sec): ? RIGHT: ? CCA: ?? Prox: ??74.6 ?? Dist: ??140 ?? ICA: ?? Prox: 75.4 ?? Mid: 114 ?? Dist: 52.7 ? ICA/CCA Ratio: 0.81 ? ECA: ??221 ? Peak ICA EDV: 41.6 ? LEFT: ? CCA: ?? Prox: 133 ?? Dist: 116 ?? ICA: ?? Prox: 87.8 ?? Mid: 80.7 ?? Dist: 147 ? ICA/CCA Ratio: 1.11 ? ECA: ??171 ? Peak ICA EDV: 51.6 ? US/US carotid duplex BI ?? IMPRESSION: ?? Findings consistent with 0-49% stenosis of the bilateral internal ?? carotid arteries. ? Electronically signed by: ??Kamlesh Metzger MD ??01/30/2025 03:24 PM EDT ?? RP ? Dictated By: ?Kamlesh Metzger MD ? Signed By: ?<Electronically signed by Kamlesh Metzger MD in OV> ?01/30/25 1524 ? DD/ 1407 ? TD/TT: 01/30/25 1435 ? Seed Buyer: ? Procedure Note Rosi, Image - 01/30/2025 [place] [address] Ultrasound Report Signed Patient: Onofre Fernandez#: [id number] 6 : 9Acct:[id number] Age/Sex: 64 / MADM Date: 01/30/25 Loc: HO.US Attending Dr: Beckie Danielle DO Ordering Physician: Beckie Danielle DO Date of Service: 01/30/25 Procedure(s): US carotid duplex BI Accession Number(s): [id number] cc: Beckie Danielle DO EXAMINATION: BILATERAL CAROTID ULTRASOUND WITH DOPPLER HISTORY: f/u carotid stenosis COMPARISON: Comparison is made with the prior examination dated 12/17/2020. TECHNIQUE: Real time and Color and Spectral doppler ultrasonography of the carotid and vertebral arteries was performed in multiple planes. FINDINGS: There is a small amount of plaque at the carotid bifurcations. VERTEBRAL FLOW DIRECTION: The right vertebral artery is not visualized. The left vertebral artery demonstrates antegrade flow. PEAK SYSTOLIC VELOCITIES (in cm/sec): RIGHT: CCA: Prox: 74.6 Dist: 140 ICA: Prox: 75.4 Mid: 114 Dist: 52.7 ICA/CCA Ratio: 0.81 ECA: 221 Peak ICA EDV: 41.6 LEFT: CCA: Prox: 133 Dist: 116 ICA: Prox: 87.8 Mid: 80.7 Dist: 147 ICA/CCA Ratio: 1.11 ECA: 171 Peak ICA EDV: 51.6 US/US carotid duplex BI IMPRESSION: Findings consistent with 0-49% stenosis of the bilateral internal carotid arteries. Electronically signed by: Kamlesh Metzger MD 01/30/2025 03:24 PM EDT Dictated By: Kamlesh Metzger MD Signed By: <Electronically signed by Kamlesh Metzger MD in OV> 01/30/25 1524 DD/ 1407 TD/TT: 01/30/25 1435 Seed Buyer: us Beckie Lolis DO CV VASCULAR PROCEDURES Final Result [facility] [address] [place] [phone] * Hematoxylin and Eosin Stain (01/15/2025 8:51 AM EDT) 01/15/2025 8:51 AM EDT 01/15/2025 10:35 AM EDT Narrative [facility] - 01/16/2025 10:33 AM EDT ----- ------- Name: Maicol Fernandez ?Age/Sex: 64/M ? : 1960 Unit#: [id number] ?? Attend Dr: Jessi Bishop MD ?Re01/15/25 ?Status: DEP SDC ? Location: HO.SSS ?Disch: ? ----- ------- SPEC : [id number] ? RECD: 01/15/25 ? STATUS: ??SOUT ? REQ NUM: [id number] ? CARLITA: 01/15/25 ? SUBM DR: Jessi Bishop MD ? ENTERED: ??01/15/25 ?SP TYPE: Surgical ? OTHR DR: Beckie Danielle DO ? ORDERED: ??HE Stain/3, Gross Micro L4 ? Diagnosis ?? Colon, transverse, polyp: ??Tubular adenoma, completely excised; negative for high-grade ?? dysplasia and carcinoma. ?Clinical History Pre-Op Dx: ??Screening Post-Op Dx: Diverticulosis, internal hemorrhoids, polyp ?Microscopic Description Microscopic sections reviewed. ? Material Received ?? Transverse colon polyp ? Gross Description Received in formalin labeled ?transverse colon polyp? is a 0.35 cm congested and hemorrhagic red-maroon papular tissue fragment with an attached portion of thin and delicate cage mucosa measuring 0.6 x 0.5 x 0.1 cm, submitted in toto in a cassette labeled A. CEDS Copies To: ?? Jessi Bishop MD ?? [facility] ?? [address] ?? [place] [address] ?? [phone] ?? Beckie Danielle DO ?? [facility] ?? [address] [facility] ?? [place] [address] ?? [phone] ----- ------- Signed (signature on file) Essie Morgan 01/16/25 1033 ? ----- ------- ? END OF REPORT ? us Generic External Data Provider LAB BLOOD ORDERAB LES Final Result Performing Organization Address [facility]/ZIP Co de Phone Number [facility] [address] [place] [phone] * (ABNORMAL) Glucose, Whole Blood (01/15/2025 7:09 AM EDT) Glucose, Whole Blood 146(H) 60 - 115 mg/dL [facility] Comment:METER #: [id number] 01/15/2025 7:09 AM EDT 01/15/2025 7:13 AM EDT Generic External Data Provider LAB BLOOD ORDERAB LES Final Result Performing Organization Address [facility] Co de Phone Number [facility] [address] [place] [phone] * (ABNORMAL) Vitamin D, 25-Hydroxy, Total, Immunoassay (01/04/2025 12:21 PM EST) Vitamin D 25-OH Total 18.2(L) >30 ng/mL [facility] Comment:Health Based Referen ce Values*< 20 ng/mL Hfkvzlncl33-24 ng/mL Insufficient> 30 ng/mL Sufficient*Tanya CAMILO. N Engl J Med. 2007;357:266-280Care must be taken in interpreting Vitamin D results fromdifferent laboratories and methodologies. Published datademonstrated that results from patients undergoinghemodialysis may show a negative bias when tested withvarious automated 25-OH vitamin D assays when compared toLC-MS/MS.When testing samples from patients whose predominant form ofVitamin D is Vitamin D2, such as patients receiving VitaminD2 supplementation, results that are subtherapeutic shouldbe confirmed with another method such as LC-MS/MS. Blood Venous blood specimen / Unknown 01/04/2025 12:21 PM EST 01/04/2025 1:24 PM EST us Beckie Danielle DO LAB BLOOD ORDERABLES Final R esult Performing Organization Address City/[facility]/ZIP Co de Phone Number [facility] [address] [place] [phone] * Albumin, Random Urine W/Creatinine (01/04/2025 12:21 PM EST) Pathologist [facility] Creatinine, Urine 305.99 mg/dL [facility] Microalbumin Urine 20.0 mg/L [facility] Microalbum Creatinine Ratio Ur 6.5 <30 ug/mg cr [facility] Comment:Albumin/Creatinine R atio Reference Ranges: Normal: < 30 ug/mg creatinine Microalbuminuria: 30 - 300 ug/mg creatinineClinical Albuminuria: > 300 ug/mg creatinine Urine (Urine, Random) 01/04/2025 12:21 PM EST 01/04/2025 1:14 PM EST Beckie Danielle mygall LAB URINE ORDERABLES Final R esult Performing Organization Address [facility] Co de Phone Number [facility] [address] [place] [phone] * Hepatitis C Antibody with Reflex to HCV, RNA, Quantitative, Real-Time PCR (01/04/2025 12:21 PM EST) [facility] Hepatitis C Antibody Nonreactive Nonreactive [facility] Comment:Antibodies to HCV no t detected; does not exclude early acuteHCV infection. Blood Venous blood specimen / Unknown 01/04/2025 12:21 PM EST 01/04/2025 1:24 PM EST Beckie JurhuberTE2 LAB BLOOD ORDERABLES Final R esult Performing Organization Address [facility] Co de Phone Number [facility] [address] [place] [phone] * Chlamydia/N. Gonorrhoeae RNA, TMA, Urogenitial (01/04/2025 12:21 PM EST) [facility] CT PCR NOT DETECTED Not Detect. [facility] Comment:A not detected test result does not exclude the possibilityof infection because test results can be affected byimproper specimen collection, concurrent antibiotic therapy,or the number of organisms in the specimen which may bebelow the sensitivity of the test. As with many diagnostictests, results from the Xpert CT/NG assay should beinterpreted in conjunction with other laboratory andclinical data available to the clinician.Xpert CT/NG performance has not been evaluated in patientsless than 14 years of age. The assay should not be used forthe evaluationof suspected sexual abuse or for other medico-legalindications. Additional testing is recommended in anycircumstance when false positive or false negative resultscould lead to adverse medical, social or psychologicalconsequences. NG PCR NOT DETECTED Not Detect. [facility] Comment:A not detected test result does not exclude the possibilityof infection because test results can be affected byimproper specimen collection, concurrent antibiotic therapy,or the number of organisms in the specimen which may bebelow the sensitivity of the test. As with many diagnostictests, results from the Xpert CT/NG assay should beinterpreted in conjunction with other laboratory andclinical data available to the clinician.Xpert CT/NG performance has not been evaluated in patientsless than 14 years of age. The assay should not be used forthe evaluationof suspected sexual abuse or for other medico-legalindications. Additional testing is recommended in anycircumstance when false positive or false negative resultscould lead to adverse medical, social or psychologicalconsequences. Urine Urethral structure / Unknown 01/04/2025 12:21 PM EST 01/04/2025 1:14 PM EST Narrative [facility] - 01/04/2025 3:23 PM EST Urine us Beckie Danielle DO LAB MICROBIOLOGY - GENERAL O RDERABLES Final Result [facility] [address] [place] [phone] * Hepatitis B surface antigen, EIA (01/04/2025 12:21 PM EST) Hepatitis B Surface Ag Negative Negative [facility] Blood Venous blood specimen / Unknown 01/04/2025 12:21 PM EST 01/04/2025 1:24 PM EST Beckie Danielle LAB BLOOD ORDERABLES Final R esult Performing Organization Address City/[facility]/ZIP Co de Phone Number [facility] [address] [place] [address] [phone] * Hepatitis B Core Antibody, Total (01/04/2025 12:21 PM EST) Hepatitis B Core Antibody Reactive Nonreactive [facility] Comment:Presumptive evidence of anti-HBc. Blood Venous blood specimen / Unknown 01/04/2025 12:21 PM EST 01/04/2025 1:24 PM EST Beckie Danielle LAB BLOOD ORDERABLES Final R esult Performing Organization Address [facility] Co de Phone Number [facility] [address] [place] [address] [phone] * HIV-1/2 Antigen and Antibodies, Fourth Generation, with Reflexes (01/04/2025 12:21 PM EST) HIV AB/AG Nonreactive Nonreactive [facility] Comment:HIV-1 p24 Ag and/or HIV-1/HIV-2 Ab not detected.A test result that is nonreactive does not exclude thepossibility of exposure to or infection with HIV-1 and/orHIV-2. Nonreactive results in this assay for individualswith prior exposure to HIV-1 and/or HIV-2 may be due toantigen and antibody levels that are below the limit ofdetection of this assay.[facility] HIV Ag/Ab Combo assay result andsupplemental assay results should be interpreted inconjunction with the patient's clinical presentation,history and other laboratory results. If the results areinconsistent with clinical evidence, additional testing issuggested to confirm the result. Blood Venous blood specimen / Unknown 01/04/2025 12:21 PM EST 01/04/2025 1:24 PM EST Beckie Caseygregory LAB BLOOD ORDERABLES Final R esult Performing Organization Address [facility] Co de Phone Number [facility] [address] [place] [phone] * Hepatitis B Surface Antibody, Qualitative (01/04/2025 12:21 PM EST) [facility] ~Hepatitis B Surface Antibody REACTIVE Nonreactive [facility] Comment:REACTIVE: > 11.99 mI U/mL Blood Venous blood specimen / Unknown 01/04/2025 12:21 PM EST 01/04/2025 1:24 PM EST Beckie Lolis LAB BLOOD ORDERABLES Final R esult Performing Organization Address [facility] de Phone Number [facility] [address] [place] [address] [phone] * (ABNORMAL) CBC (01/04/2025 12:21 PM EST) [facility] White Blood Count 7.6 4.8 - 10.8 X10*3/uL [facility] Red Blood Count 4.52(L) 4.60 - 5.80 X10*6/uL [facility] Hemoglobin 13.9(L) 14.0 - 18.0 g/dl [facility] Hematocrit 41.5(L) 42.0 - 52.0 % [facility] Mean Corpuscular Volume 91.8 80.0 - 98.0 fL [facility] Mean Corpuscular Hemoglobin 30.8 27.0 - 33.0 pg [facility] Mean Corpuscular HGB Conc 33.5 31.0 - 36.0 g/dl [facility] Red Cell Distribution Width 13.0 11.0 - 16.0 % [facility] Platelet Count 234 160 - 400 X10*3/uL [facility] Mean Platelet Volume 11.8 9.4 - 12.4 fL [facility] NRBC Pct Auto 0.0 0.0 - 0.2 /100WBC [facility] NRBC Abs Auto 0.000 0.0 - 0.012 X10*3/uL [facility] Blood Venous blood specimen / Unknown 01/04/2025 12:21 PM EST 01/04/2025 1:14 PM EST Beckie Danielle LAB BLOOD ORDERABLES Final R esult Performing Organization Address City/[facility]/ZIP Co de Phone Number [facility] [address] [place] [phone] * TSH (01/04/2025 12:21 PM EST) Thyroid Stimulating Hormone 3.45 0.32 - 4.0 uIU/mL [facility] Comment:Note: A sustained TS H level above 2.5 uIU/mL may warrant further investigation. TSH 3rd Generation ([facility]) Blood Venous blood specimen / Unknown 01/04/2025 12:21 PM EST 01/04/2025 1:24 PM EST Beckie Lolis LAB BLOOD ORDERABLES Final R esult Performing Organization Address [facility] Co de Phone Number [facility] [address] [place] [phone] * T4, Free (01/04/2025 12:21 PM EST) Free T4 (Free Thyroxine) 0.81 0.71 - 1.85 ng/dL [facility] Blood Venous blood specimen / Unknown 01/04/2025 12:21 PM EST 01/04/2025 1:24 PM EST Beckie Lolis LAB BLOOD ORDERABLES Final R esult Performing Organization Address City/[facility]/ZIP Co de Phone Number [facility] [address] [place] [phone] * (ABNORMAL) Hemoglobin A1c (01/04/2025 12:21 PM EST) Hemoglobin A1c 7.5(H) <6.0 % [facility] Comment:Hemoglobin A1C Refer ence Range Adults: 4.8 - 6.0 % Non diabetic: < 6.0 % Goal: < 7.0 %Additional Action Suggested: > 8.0 %Note: Hemoglobin A1c results are invalid for patients with abnormal amounts of HbF. Blood transfusions may impact the HbA1c concentration in the patient sample. Estimated Average Glucose 169 mg/dL [facility] Comment:eAG = Estimated ave rage glucose which is %A1C expressed asaverage glucose, using the formula of the A7S-KwiqwzyOmdgsgd Glucose study (ADAG), Diabetes Care, Vol.31,#8,2007 Blood Venous blood specimen / Unknown 01/04/2025 12:21 PM EST 01/04/2025 1:14 PM EST us Beckie Danielle DO LAB BLOOD ORDERABLES Final R esult [facility] [address] [place] [phone] * (ABNORMAL) Hepatic Function Panel (01/04/2025 12:21 PM EST) Bilirubin, Total 0.5 0.0 - 1.0 mg/dL [facility] Bilirubin, Direct 0.1 0.0 - 0.5 mg/dL [facility] Aspartate Amino Transferase 21 5 - 37 U/L [facility] Alanine Aminotransferase 54(H) 0 - 40 U/L [facility] Total Protein 8.4(H) 6.5 - 8.0 g/dL [facility] Albumin Level 4.4 3.5 - 5.0 g/dL [facility] Alkaline Phosphatase 95 39 - 117 U/L [facility] Blood Venous blood specimen / Unknown 01/04/2025 12:21 PM EST 01/04/2025 1:24 PM EST Beckie Lolis DO LAB BLOOD ORDERABLES Final R esult Performing Organization Address City/[facility]/ZIP Co de Phone Number [facility] [address] [place] [phone] * (ABNORMAL) Lipid Panel, Standard (01/04/2025 12:21 PM EST) Triglycerides 463(H) <150 mg/dL [facility] Comment:Slight Lipemia.Jorge able Triglyceride: less than 150 mg/dLBorderline High Triglyceride 150-199 mg/dLHigh Triglyceride: 200-499 mg/dLVery High Triglyceride: greater than or equal to 5OO mg/dL Cholesterol 195 <200 mg/dL [facility] Comment:Desirable Cholestero l: less than 200 mg/dLBorderline High Cholesterol: 200-239 mg/dLHigh Cholesterol: greater than 239 mg/dL LDL Cholesterol Calculated TNP <100 mg/dL [facility] Comment:Unable to calculate the LDL. The formula of Friedwald,Deluca, and Malini is only valid if the triglycerides areless than 400 mg/dl. HDL Cholesterol 35(L) >40 mg/dL [facility] Comment:Desirable HDL: great er than 40 mg/dL Note: This HDL assay may give artificially low results in patients with liver disease. Blood Venous blood specimen / Unknown 01/04/2025 12:21 PM EST 01/04/2025 1:24 PM EST us Beckie Danielle DO LAB BLOOD ORDERABLES Final R esult Performing Organization Address City/[facility]/ZIP Co de Phone Number [facility] [address] [place] [phone] * (ABNORMAL) Basic Metabolic Panel (01/04/2025 12:21 PM EST) Sodium 141 135 - 145 mmol/L [facility] Potassium 4.9 3.3 - 5.1 mmol/L [facility] Chloride 106 96 - 108 mmol/L [facility] Carbon Dioxide 29 22 - 29 mmol/L [facility] Anion Gap 11(L) 12 - 20 [facility] Urea Nitrogen (BUN) 14 9 - 16 mg/dL [facility] Creatinine, Serum 1.08 0.5 - 1.4 mg/dL [facility] Estimated Glomerular Filt Rate >60 [facility] Comment:Chronic Kidney Disea se: Estimated GFR < 60 mL/min/1.09d8Afyeub Kidney Disease: Estimated GFR < 15 mL/min/1.73m2 Glucose 172(H) 60 - 115 mg/dL [facility] Calcium 9.5 8.4 - 10.2 mg/dL [facility] Blood Venous blood specimen / Unknown 01/04/2025 12:21 PM EST 01/04/2025 1:24 PM EST Beckie Danielle DO LAB BLOOD ORDERABLES Final R esult [facility] [address] [place] [phone] * (ABNORMAL) POCT HGB A1C (01/04/2025 11:38 AM EST) Pathologist [facility] Hemoglobin A1C 7.4(A) 4.0 - 6.0 % QC Media Lot # [id number] Lot# Expiration Date Blood 01/04/2025 11:3 8 AM EST Beckie Danielle DO POINT OF CARE TEST ENTER/PRIYA T ORDERABLES Final Result * (ABNORMAL) POCT Glucose (01/04/2025 11:38 AM EST) Pathologist [facility] Glucose Blood, POC 269(A) 60 - 200 mg/dL QC Media Lot # [id number] Lot# Expiration Date 278, Blood Capillary blood specimen / Unknown 01/04/2025 11:38 AM EST Beckie Danielle DO POINT OF CARE TEST ENTER/PRIYA T ORDERABLES Final Result from Last [address] [place] [address] [facility] [address] [address] [place] [address] [place] [address] [place] [phone] Care Teams Beveling And Edging Machine Operator Relationship Specialty Start Date End Date Beckie Danielle DO [address] [place] [address] PCP - General Family Medicine 11/28/13
--- OUTSIDE RECORDS SUMMARY | 2025-02-07 16:16 | XMS_ITS | Encounter Summary ---
Author Organization [employer] Address [address] [facility] 7t [place] [address] Care Team Providers Care Support Services Coordinator Name Role Phone Beckie Danielle DO Primary Care Provider DelRainer ovalle PharmD Unavailable Unavail able Mandi Murdock PharmD Unavailable Encounter Details Date Type Department Care Team (Late st Contact Info) Description 11/29/2022 Orders Only [facility] [address] [place] [address] Kya Cervantes LPN Social History Tobacco Use [...] PM EST) CRP, High Sensitivity >10.0(A) mg/L [facility] Comment:Reference RangeOptim al <1.0Kevyn PS [...] with infection and inflammation.THIS TEST WAS PERFORMED AT:[employer] [facility] [place] [address] (NL1)[place] [address]WYJSRAKT PENNY MD 12/16/2022 3:49 PM EST 12/16/2022 3:49 PM EST [facility] External Provider LAB BLO OD ORDERABLES Final Result [facility] [address] [place] [phone] * CEA (12/16/2022 3:49 PM EST) Carcinoembryonic Antigen 2.70 ng/mL [facility] Comment:CEA Reference Range: 93.4% Non-Smokers = 0.0-3.0 ng/mL 95.6% Smokers = 0.0-5.0 ng/mLCEA Methodology: Mcpherson Alinity i ChemiluminescentMicroparticle Immunoassay (CMIA)CEA testing can have significant value in monitoring ofpatients with diagnosed malignancies in whom changingconcentrations of CEA are observed. Values obtained withdifferent assay methods cannot be used interchangeably. 12/16/2022 3:49 PM EST 12/16/2022 3:49 PM EST [facility] External Provider LAB BLO OD ORDERABLES Final Result Performing Organization Address City/[facility] Co de Phone Number [facility] [address] [place] [address] [phone] * (ABNORMAL) Ferritin (12/16/2022 3:49 PM EST) Ferritin 467(H) 20 - 250 ng/mL [facility] 12/16/2022 3:49 PM EST 12/16/2022 3:49 PM EST [facility] External Provider LAB BLO OD ORDERABLES Final Result Performing Organization Address City/[facility] Co de Phone Number [facility] [address] [place] [phone] * Lipid Panel, Standard (12/16/2022 3:49 PM EST) Triglycerides 487 mg/dL [facility] Comment:Desirable Triglyceri de: less than 150 mg/dLBorderline High Triglyceride 150-199 mg/dLHigh Triglyceride: 200-499 mg/dLVery High Triglyceride: greater than or equal to 5OO mg/dL Cholesterol 178 mg/dL [facility] Comment:Desirable Cholestero l: less than 200 mg/dLBorderline High Cholesterol: 200-239 mg/dLHigh Cholesterol: greater than 239 mg/dL LDL Cholesterol Calculated TNP mg/dl [facility] Comment:Unable to calculate the LDL. The formula of Friedwald,Deluca, and Malini is only valid if the triglycerides areless than 400 mg/dl. HDL Cholesterol 33 mg/dL [facility] Comment:Desirable HDL: great er than 40 mg/dL Note: This HDL assay may give artificially low results in patients with liver disease. 12/16/2022 3:49 PM EST 12/16/2022 3:49 PM EST [facility] External Provider LAB BLO OD ORDERABLES Final Result [facility] [address] [place] [phone] * (ABNORMAL) Comprehensive Metabolic Panel (12/16/2022 3:49 PM EST) Sodium 139 135 - 145 mmol/L [facility] Potassium 4.0 3.3 - 5.1 mmol/L [facility] Chloride 99 96 - 108 mmol/L [facility] Carbon Dioxide 30(H) 22 - 29 mmol/L [facility] Anion Gap 14 12 - 20 [facility] Urea Nitrogen (BUN) 20(H) 9 - 16 mg/dL [facility] Creatinine, Serum 1.61(H) 0.5 - 1.4 mg/dL [facility] Estimated Glomerular Filt Rate 43 [facility] Comment:NOTE: For -Am erican individuals, multiply the result by 1.210.Chronic Kidney Disease: Estimated GFR < 60 mL/min/1.39s7Lqufds Kidney Disease: Estimated GFR < 15 mL/min/1.73m2 Glucose 253(H) 60 - 115 mg/dL [facility] Calcium 9.5 8.4 - 10.2 mg/dL [facility] Bilirubin, Total 0.6 0.0 - 1.0 mg/dL [facility] Aspartate Amino Transferase 37 5 - 37 U/L [facility] Alanine Aminotransferase 27 0 - 40 U/L [facility] Total Protein 7.5 6.5 - 8.0 g/dL [facility] Albumin Level 4.5 3.5 - 5.0 g/dL [facility] Alkaline Phosphatase 89 39 - 117 U/L [facility] 12/16/2022 3:49 PM EST 12/16/2022 3:49 PM EST [facility] External Provider LAB BLO OD ORDERABLES Final Result [facility] [address], [place] [phone] * (ABNORMAL) CBC auto differential (12/16/2022 3:49 PM EST) White Blood Count 8.4 4.8 - 10.8 X10*3/uL [facility] Red Blood Count 4.62 4.60 - 5.80 X10*6/uL [facility] Hemoglobin 13.8(L) 14.0 - 18.0 g/dl [facility] Hematocrit 41.2(L) 42.0 - 52.0 % [facility] Mean Corpuscular Volume 89.2 80.0 - 98.0 fL [facility] Mean Corpuscular Hemoglobin 29.9 27.0 - 33.0 pg [facility] Mean Corpuscular HGB Conc 33.5 31.0 - 36.0 g/dl [facility] Red Cell Distribution Width 12.7 11.0 - 16.0 % [facility] Platelet Count 246 160 - 400 X10*3/uL [facility] Mean Platelet Volume 11.9 9.4 - 12.4 fL [facility] Neutrophils Percent Auto 64.9 45 - 73 % [facility] Imm Gran Pct Auto 0.2 0.0 - 0.4 % [facility] Lymphocytes Percent Auto 26.4 20 - 40 % [facility] Monocytes Percent Auto 6.2 2 - 11 % [facility] Eosinophils Percent Auto 1.9 0 - 4 % [facility] Basophils Percent Auto 0.4 0 - 2 % [facility] NRBC Pct Auto 0.0 0.0 - 0.2 /100WBC [facility] Neutrophils Absolute Auto 5.5 2.0 - 8.3 x10*3/uL [facility] Imm Gran Abs Auto 0.02 0.00 - 0.03 X10*3/uL [facility] Lymphocytes Absolute Auto 2.2 1.2 - 4.9 X10*3/uL [facility] Monocytes Absolute Auto 0.5 0.1 - 1.2 X10*3/uL [facility] Eosinophils Absolute Auto 0.2 0.0 - 0.4 X10*3/uL [facility] Basophils Absolute Auto 0.0 0.0 - 0.2 X10*3/uL [facility] NRBC Abs Auto 0.000 0.0 - 0.012 X10*3/uL [facility] 12/16/2022 3:49 PM EST 12/16/2022 3:49 PM EST us [facility] External Provider LAB BLO OD ORDERABLES Final Result Performing Organization Address City/State/[facility] Co de Phone Number [facility] [address] [place] [phone] documented in this encounter Visit Diagnoses Not on filedocumented in this encounter Care Teams Support Services Coordinator Relationship Specialty Start Date End Date Beckie Danielle DO [address] [place] [address] PCP - General Family Medicine 11/28/13 Rainer Bishop, PharmD [address] [place] [phone] Pharmacist Internal Medicine 01/12/23 06/07/23 Mandi Murdock PharmD [address] [place] [address] Pharmacist Internal Medicine 06/08/23 05/29/24 documented as of this encounter
--- OUTSIDE RECORDS SUMMARY | 2025-02-07 16:16 | XMS_ITS | Encounter Summary ---
Author Organization [employer] Address [address] [facility] 7t [place] [address] Care Team Providers Care Export Freight Clerk Name Role Phone Beckie Danielle DO Primary Care Provider + [phone] Reason for Visit * Reason Onset Date Comments Appointment Request 10/23/2024 Encounter Details Date Type Department Care Team ([facility] st Contact Info) Description 10/23/2024 Telephone [facility] [address] [place] [address] Beckie Danielle DO [address] [place] [address] Appointment Request Social History Tobacco Use Types [...] reschedule CDTM visit. Please contact pt at [phone]. documented in this encounter Plan of Treatment [...] sugar as directed Result Component No Puia, Manid, PharmD documented as of this encounter Visit Diagnoses Not on filedocumented in this encounter Additional Health Concerns Assessment Noted Time PHQ-9 Depression Total Score: 0 01/08/20 23 10:31 AM EST documented as of this encounter Care Teams Export Freight Clerk Relationship Specialty Start Date End Date Beckie Danielle DO [address] [place] [phone] PCP - General Family Medicine 11/28/13 documented as of this encounter
--- OUTSIDE RECORDS SUMMARY | 2025-02-07 16:16 | XMS_ITS | Encounter Summary ---
Author Organization [employer] Address [address] [facility] [address]t [place] [address] Care Team Providers Care Work From Home Name Role Phone Beckie Danielle DO Primary Care Provider [phone] Mandi Murdock PharmD Unavailable [phone] Reason for Visit * Reason Onset Date Comments Appointment Request 05/08/2024 Encounter Details Date Type Department Care Team ([facility] st Contact Info) Description 05/08/2024 Telephone [facility] MEDICINE [address] [place] [address] Beckie Danielle DO [address] [place], [place] [phone] Appointment Request Social History Tobacco Use Types [...] once insurance is good call [facility] to schedule appt documented in this encounter [...] documented as of this encounter Care Teams Work From Home Relationship Specialty Start Date End Date Beckie Danielle DO [address] [place] [phone] PCP - General Family Medicine 11/28/13 Mandi Murdock, Glenna [address] [place] [phone] Pharmacist Internal Medicine 06/08/23 05/29/24 documented as of this encounter
--- OUTSIDE RECORDS SUMMARY | 2025-02-07 16:16 | XMS_ITS | Encounter Summary ---
Author Organization [employer] Address [address] [facility] 7t [place] [address] Care Team Providers Care Gasoline Power Shovel Operator Name Role Phone Beckie Danielle DO Primary Care Provider + [phone] Reason for Visit * Reason Comments Med Refill Encounter Details Date Type Department Care Team ([facility] st Contact Info) Description 12/06/2024 Refill [facility] [address] [place], [place] [phone] Beckie Danielle DO [address] [place], [place] [phone] Type 2 diabetes mellitus without complication, without long-term current use of insulin ([facility]) Social History Tobacco Use Types [...] of insulin ([facility]) documented in this encounter Additional Health Concerns Assessment Noted Time PHQ-9 Depression Total Score: 0 01/08/20 23 10:31 AM EST documented as of this encounter Care Teams Gasoline Power Shovel Operator Relationship Specialty Start Date End Date Beckie Danielle DO [address] [place] [phone] PCP - General Family Medicine 11/28/13 documented as of this encounter
--- OUTSIDE RECORDS SUMMARY | 2025-02-07 16:16 | XMS_ITS | Encounter Summary ---
Author Organization [employer] Address [address] [facility] 7t [place] [address] Care Team Providers Care Engineering Technology Instructor Name Role Phone Beckie Danielle DO Primary Care Provider + [phone] Reason for Visit * Reason Comments Med Refill Encounter Details Date Type Department Care Team ([facility] st Contact Info) Description 09/10/[address] [facility] MEDICINE [address] [place], [place] [phone] Beckie Danielle DO [address] [place], [place] [phone] Type 2 diabetes mellitus without complication, without long-term current use of insulin ([facility]) Social History Tobacco Use Types Packs/Day [...] complication, without long-term current use of insulin ([facility]) documented in this encounter Additional Health Concerns Assessment Noted Time PHQ-9 Depression Total Score: 0 01/08/20 23 10:31 AM EST documented as of this encounter Care Teams Engineering Technology Instructor Relationship Specialty Start Date End Date Beckie Danielle DO [address] [place] [phone] PCP - General Family Medicine 11/28/13 documented as of this encounter
--- OUTSIDE RECORDS SUMMARY | 2025-02-07 16:16 | XMS_ITS | Encounter Summary ---
Author Organization [employer] Address 75 [facility] 7t [place] [address] Care Team Providers Care Footwear Sales Representative Name Role Phone Beckie Danielle DO Primary Care Provider DelRainer ovalle PharmD Unavailable Unavail able Mandi Murdock PharmD Unavailable Reason for Visit * Reason Comments Med Refill Encounter Details Date Type Department Care Team (Late st Contact Info) Description 01/14/2023 Refill [facility] MED & PEDS [address] [place] [address] Beckie Danielle DO [address] [place] [address] Erectile dysfunction, unspecified erectile dysfunction type Social [...] documented as of this encounter Care Teams Footwear Sales Representative Relationship Specialty Start Date End Date Beckie Danielle DO [address] [place] [phone] PCP - General Family Medicine 11/28/13 Rainer Bishop PharmD [address] [place] [phone] Pharmacist Internal Medicine 01/12/23 06/07/23 Mandi Murdock PharmD [address] [place] [phone] Pharmacist Internal Medicine 06/08/23 05/29/24 documented as of this encounter
== END 2025-02-07 15:27 | disposition home or self-care (01) ==
PROVIDERS: PCP Family Medicine; Visit Provider Nurse Practitioner Family
DX: R94.31 Abnormal electrocardiogram [ECG] [EKG] (principal); I77.810 Thoracic aortic ectasia; I10 Essential (primary) hypertension; R00.2 Palpitations
CPT/HCPCS: 93010; 99214; G2211

== ENCOUNTER → 2025-02-07 14:47 | Outpatient (BNVA) | payer OTHER, SELFPAY | PROVIDERS: PCP Family Medicine; Visit Provider Nurse Practitioner Family | DX: I10 Essential (primary) hypertension (principal); I77.810 Thoracic aortic ectasia; R94.31 Abnormal electrocardiogram [ECG] [EKG]; R00.2 Palpitations | CPT/HCPCS: 93005; 99212 ==

== ENCOUNTER → 2025-03-07 12:55 | Outpatient (REF) | payer OTHER, SELFPAY ==
--- OUTSIDE RECORDS SUMMARY | 2025-03-07 15:24 | XMS_ITS | Encounter Summary ---
Author Organization [employer] Address 75 [facility] 7t [place] [address] Care Team Providers Care Lurer Name Role Phone Beckie Danielle DO Primary Care Provider DelRainer ovalle PharmD Unavailable Unavail able Mandi Murdock PharmD Unavailable [phone] Encounter Details Date Type Department Care Team (Late st Contact Info) Description 11/29/2022 Orders Only [facility] MEDICINE [address] [place] [address] Kya Cervantes LPN Social History Tobacco Use [...] PM EST) CRP, High Sensitivity >10.0(A) mg/L [facility] Comment:Reference RangeOptim al <1.0Kevyn PS [...] with infection and inflammation.THIS TEST WAS PERFORMED AT:[facility] [place] [address] (NL1)[place] [address]GMBTNKAT PENNY MD 12/16/2022 3:49 PM EST 12/16/2022 3:49 PM EST [facility] External Provider LAB BLO OD ORDERABLES Final Result [facility] [address] [place] [phone] * CEA (12/16/2022 3:49 PM EST) Carcinoembryonic Antigen 2.70 ng/mL [facility] Comment:CEA Reference Range: 93.4% Non-Smokers = 0.0-3.0 ng/mL 95.6% Smokers = 0.0-5.0 ng/mLCEA Methodology: Mcpherson Alinity i ChemiluminescentMicroparticle Immunoassay (CMIA)CEA testing can have significant value in monitoring ofpatients with diagnosed malignancies in whom changingconcentrations of CEA are observed. Values obtained withdifferent assay methods cannot be used interchangeably. 12/16/2022 3:49 PM EST 12/16/2022 3:49 PM EST [facility] External Provider LAB BLO OD ORDERABLES Final Result Performing Organization Address City/[facility] Co de Phone Number [facility] [address] [place] [phone] * (ABNORMAL) Ferritin (12/16/2022 3:49 PM EST) Ferritin 467(H) 20 - 250 ng/mL [facility] 12/16/2022 3:49 PM EST 12/16/2022 3:49 PM EST [facility] External Provider LAB BLO OD ORDERABLES Final Result Performing Organization Address City/[facility] Co de Phone Number [facility] [address] [place] [phone] * Lipid Panel, Standard (12/16/2022 3:49 PM EST) Triglycerides 487 mg/dL [facility] Comment:Desirable Triglyceri de: less than 150 mg/dLBorderline High Triglyceride 150-199 mg/dLHigh Triglyceride: 200-499 mg/dLVery High Triglyceride: greater than or equal to 5OO mg/dL Cholesterol 178 mg/dL [facility] Comment:Desirable Cholestero l: less than 200 mg/dLBorderline High Cholesterol: 200-239 mg/dLHigh Cholesterol: greater than 239 mg/dL LDL Cholesterol Calculated TNP mg/dl [facility] Comment:Unable to calculate the LDL. The formula of Friedwald,Deluca, and Malini is only valid if the triglycerides areless than 400 mg/dl. HDL Cholesterol 33 mg/dL [facility] Comment:Desirable HDL: great er than 40 mg/dL Note: This HDL assay may give artificially low results in patients with liver disease. 12/16/2022 3:49 PM EST 12/16/2022 3:49 PM EST [facility] External Provider LAB BLO OD ORDERABLES Final Result [facility] [address] [place] [phone] * (ABNORMAL) Comprehensive Metabolic Panel (12/16/2022 3:49 PM EST) Sodium 139 135 - 145 mmol/L [facility] Potassium 4.0 3.3 - 5.1 mmol/L [facility] Chloride 99 96 - 108 mmol/L [facility] Carbon Dioxide 30(H) 22 - 29 mmol/L [facility] Anion Gap 14 12 - 20 [facility] Urea Nitrogen (BUN) 20(H) 9 - 16 mg/dL [facility] Creatinine, Serum 1.61(H) 0.5 - 1.4 mg/dL [facility] Estimated Glomerular Filt Rate 43 [facility] Comment:NOTE: For -Am erican individuals, multiply the result by 1.210.Chronic Kidney Disease: Estimated GFR < 60 mL/min/1.54w2Xybrzm Kidney Disease: Estimated GFR < 15 mL/min/1.73m2 Glucose 253(H) 60 - 115 mg/dL [facility] Calcium 9.5 8.4 - 10.2 mg/dL [facility] Bilirubin, Total 0.6 0.0 - 1.0 mg/dL [facility] Aspartate Amino Transferase 37 5 - 37 U/L [facility] Alanine Aminotransferase 27 0 - 40 U/L [facility] Total Protein 7.5 6.5 - 8.0 g/dL [facility] Albumin Level 4.5 3.5 - 5.0 g/dL [facility] Alkaline Phosphatase 89 39 - 117 U/L [facility] 12/16/2022 3:49 PM EST 12/16/2022 3:49 PM EST [facility] External Provider LAB BLO OD ORDERABLES Final Result [facility] [address], [place] [phone] * (ABNORMAL) CBC auto differential (12/16/2022 3:49 PM EST) White Blood Count 8.4 4.8 - 10.8 X10*3/uL [facility] Red Blood Count 4.62 4.60 - 5.80 X10*6/uL [facility] Hemoglobin 13.8(L) 14.0 - 18.0 g/dl [facility] Hematocrit 41.2(L) 42.0 - 52.0 % [facility] Mean Corpuscular Volume 89.2 80.0 - 98.0 fL [facility] Mean Corpuscular Hemoglobin 29.9 27.0 - 33.0 pg [facility] Mean Corpuscular HGB Conc 33.5 31.0 - 36.0 g/dl [facility] Red Cell Distribution Width 12.7 11.0 - 16.0 % [facility] Platelet Count 246 160 - 400 X10*3/uL [facility] Mean Platelet Volume 11.9 9.4 - 12.4 fL [facility] Neutrophils Percent Auto 64.9 45 - 73 % [facility] Imm Gran Pct Auto 0.2 0.0 - 0.4 % [facility] Lymphocytes Percent Auto 26.4 20 - 40 % [facility] Monocytes Percent Auto 6.2 2 - 11 % [facility] Eosinophils Percent Auto 1.9 0 - 4 % [facility] Basophils Percent Auto 0.4 0 - 2 % [facility] NRBC Pct Auto 0.0 0.0 - 0.2 /100WBC [facility] Neutrophils Absolute Auto 5.5 2.0 - 8.3 x10*3/uL [facility] Imm Gran Abs Auto 0.02 0.00 - 0.03 X10*3/uL [facility] Lymphocytes Absolute Auto 2.2 1.2 - 4.9 X10*3/uL [facility] Monocytes Absolute Auto 0.5 0.1 - 1.2 X10*3/uL [facility] Eosinophils Absolute Auto 0.2 0.0 - 0.4 X10*3/uL [facility] Basophils Absolute Auto 0.0 0.0 - 0.2 X10*3/uL [facility] NRBC Abs Auto 0.000 0.0 - 0.012 X10*3/uL [facility] 12/16/2022 3:49 PM EST 12/16/2022 3:49 PM EST us [facility] External Provider LAB BLO OD ORDERABLES Final Result Performing Organization Address City/State/[facility] Co de Phone Number [facility] [address] [place] [phone] documented in this encounter Visit Diagnoses Not on filedocumented in this encounter Care Teams Lurer Relationship Specialty Start Date End Date Beckie Danielle DO [address] [place] [address] PCP - General Family Medicine 11/28/13 Rainer Bishop, PharmD [address] [place] [phone] Pharmacist Internal Medicine 01/12/23 06/07/23 Mandi Murdock PharmD [address] [place] [address] Pharmacist Internal Medicine 06/08/23 05/29/24 documented as of this encounter
--- OUTSIDE RECORDS SUMMARY | 2025-03-07 15:24 | XMS_ITS | Encounter Summary ---
Author Organization [employer] Address 75 [facility] 7t [place] [address] Care Team Providers Care Pier Worker Name Role Phone Beckie Danielle DO Primary Care Provider [phone] Mandi Murdock PharmD Unavailable [phone] Reason for Visit * Reason Onset Date Comments Appointment Request 05/08/2024 Encounter Details Date Type Department Care Team ([facility] st Contact Info) Description 05/08/2024 Telephone [facility] MEDICINE [address] [place] [address] Beckie Danielle DO [address] [place], [place] [phone] Appointment Request Social History Tobacco Use Types [...] by nurse once insurance is good call [facility] to schedule appt documented in this encounter [...] documented as of this encounter Care Teams Pier Worker Relationship Specialty Start Date End Date Beckie Danielle DO [address] [place] [phone] PCP - General Family Medicine 11/28/13 Mandi Murdock, Gl[place] [address] [place] [phone] Pharmacist Internal Medicine 06/08/23 05/29/24 documented as of this encounter
--- OUTSIDE RECORDS SUMMARY | 2025-03-07 15:24 | XMS_ITS | Encounter Summary ---
Author Organization [employer] Address 75 [facility] [address] [place] [address] Care Team Providers Care Tray Service Worker Name Role Phone Beckie Danielle DO Primary Care Provider DelRainer ovalle PharmD Unavailable Unavail able Mandi Murdock PharmD Unavailable Reason for Visit * Reason Comments Med Refill Encounter Details Date Type Department Care Team (Late st Contact Info) Description 01/14/2023 Refill [facility] CHC MED & PEDS [address] [place] [address] Beckie Danielle DO [address] [place] [address] Erectile dysfunction, unspecified erectile dysfunction type Social [...] documented as of this encounter Care Teams Tray Service Worker Relationship Specialty Start Date End Date Beckie Danielle DO [address] [place] [phone] PCP - General Family Medicine 11/28/13 Rainer Bishop PharmD [address] [place] [phone] Pharmacist Internal Medicine 01/12/23 06/07/23 Mandi Murdock PharmD [address] [place] [phone] Pharmacist Internal Medicine 06/08/23 05/29/24 documented as of this encounter
--- OUTSIDE RECORDS SUMMARY | 2025-03-07 15:24 | XMS_ITS | Clinical Summary ---
Author Organization [employer] Address [address] [place] [address] [address] [place] [address] Care Team Providers Care Rn Field Case Manager Name Role Phone Beckie Danielle DO Primary Care Provider + [phone] Allergies No known active allergies Medications * [...] DAY 48 mL 1 11/04/20 23 Active Aspirin Low Dose 81 MG EC tabletIndicatio ns:Type 2 diabetes mellitus with other specified complication, unspecified whether [facility] insulin use (CMS/HCC) TAKE 1 TABLET BY MOUTH EVERY DAY 90 tablet 3 02/22/20 24 Active metFORMIN XR (Glucophage-XR) 500 MG 24 hr tabletIndicatio ns:Type 2 diabetes mellitus without complication, without long-term current use of insulin (CMS/HCC) Take 1 tablet (500 mg) by mouth with breakfast AND 2 tablets (1,000 mg) with evening meal. Do not crush, chew, or split.. 90 tablet 11 20 24 Active Blood Glucose Monitoring Suppl (FreeStyle Lite) deviceIndicatio ns:Type 2 diabetes mellitus without complication, without long-term current use of insulin (CMS/[facility]) Inject 1 each under the skin 2 [...] without long-term current use of insulin (CMS/[facility]) 1 each by Other route 2 times [...] day. 30 tablet 01/04/20 25 026 Active cholecalciferol (Vitamin D-3) 50 MCG (1999 UT) capsule Take 1 capsule (50 mcg) by mouth Once per day. 90 capsule 01/11/20 25 026 Active lisinopril 40 MG tabletIndicatio ns:Essential hypertension Take 1 tablet (40 mg) by mouth in the morning. 90 tablet 02/27/20 25 Active lisinopril 40 MG tabletIndicatio ns:Essential hypertension TAKE 1 TABLET BY MOUTH EVERY DAY IN THE MORNING 90 tablet 3 01/03/20 24 025 Discontinued(Re order (will not trigger notification to Pharmacy)) Active Problems Problem Noted Date Diagnosed Date Erectile dysfunction 12/02/2023 Assessment & Plan (12/02/2023 9:53 AM EST): Reportedly not improving w Viagra Explained it could be related to DM Refer to urology Hydrocele in adult 12/02/2023 Overview (12/02/2023): Scrotal US on 2018 ([facility]) Assessment & Plan (12/02/2023 2:20 PM EST): [...] Encounters Date Type Department Care Team Description 03/07/2025 Orders Only [place] [address] [place] [phone] ProviderNoe MD 02/26/2025 Refill [facility] [address] [place] [address] Beckie Danielle DO Essential hypertension 02/01/2025 Telephone [facility] [address] [place] [phone] Beckie Danielle DO Results 01/10/2025 Refill [facility] [address] [place] [phone] Beckie Danielle DO 01/04/2025 11:00 AM EST Office Visit [facility] [address] [place] [phone] Beckie Danielle DO Type 2 diabetes mellitus without complication, without long-term current use of insulin ([facility]) (Primary Dx); Essential hypertension; Hyperlipidemia LDL goal <70; Obstructive sleep apnea; Stenosis of right carotid artery; Chronic constipation; Subclinical hypothyroidism; History of squamous cell carcinoma; Scrotal pain; Healthcare maintenance 01/04/2025 Telephone [facility] [address] [place] [phone] Beckie Danielle DO FYI 01/04/2025 Travel 01/01/2025 Travel from Last 3 Months Immunizations Name Administration [...] 118/70(2024 11:35 AM EST) No Rainer Bishop, PharmD Record your blood pressure once per day Blood Pressure No Mandi Murdock, PharmD Patient will adhere to medication regimen General No Mandi Murdock PharmJoao Hemoglobin A1c < 7 Result Component 7.5( 12:21 PM EST) No Rainer Bishop, PharmJoao Record your blood sugar as directed Result Component No Mandi Murdock PharmD Procedures Procedure Name Priority Date/Time Associated Diagnosis Comments CT ABD/PELVIS W/ IV CONTRAST ONLY Routine 03/05/2025 11:30 AM EDT AMB REFERRAL TO UROLOGY Urgent 02/27/2025 Testicular pain, right US SCROTUM Routine 01/30/2025 7:05 PM EDT [...] complication, without long-term current use of insulin ([facility]) Essential hypertension Hyperlipidemia LDL goal <70 Obstructive sleep apnea Stenosis of right carotid artery Elevated TSH History of squamous cell carcinoma Healthcare maintenance VITAMIN D,25-OH,TOTAL,IA Routine 01/04/2025 12:21 PM EST Type 2 diabetes mellitus without complication, without long-term current use of insulin ([facility]/HCC) Essential hypertension Hyperlipidemia LDL goal <70 Obstructive sleep apnea Stenosis of right carotid artery Elevated TSH History of squamous cell carcinoma Healthcare maintenance Vitamin D deficiency T4, FREE Routine 01/04/2025 12:21 PM EST Type 2 diabetes mellitus without complication, without long-term current use of insulin ([facility]/HCC) Essential hypertension Hyperlipidemia LDL goal <70 Obstructive sleep apnea Stenosis of right carotid artery Elevated TSH History of squamous cell carcinoma Healthcare maintenance CHLAMYDIA/N. GONORRHOEAE RNA, TMA, UROGENITAL Routine 01/04/2025 12:21 PM EST Type 2 diabetes mellitus without complication, without long-term current use of insulin ([facility]) Essential hypertension Hyperlipidemia LDL goal <70 Obstructive sleep apnea Stenosis of right carotid artery Elevated TSH History of squamous cell carcinoma Healthcare maintenance Encounter for screening for infections with a predominantly sexual mode of transmission POCT GLYCATED HEMOGLOBIN, TOTAL Routine 01/04/2025 11:38 AM EST Type 2 diabetes mellitus without complication, without long-term current use of insulin ([facility]) POCT GLUCOSE Routine 01/04/2025 11:38 AM EST Type 2 diabetes mellitus without complication, without long-term current use of insulin ([facility]) from Last 3 Months Results * CT ABD/PELVIS W/ IV CONTRAST ONLY (03/05/2025 11:30 AM EDT) Anatomical Region Laterality Modality Body, Pelvis, Abdomen Computed T omography us Historical Provider MD HEARD CT PROCEDURES Final R esult * Referral to Urology (02/27/2025) us Beckie Danielle DO OUTPATIENT REFERRAL ORDERABL ES Edited Result - Final * US Scrotum (01/30/2025 7:05 PM EDT) Anatomical Region Laterality Modality Body Ultrasound 01/30/2025 7:05 PM EDT Narrative 01/30/2025 7:07 PM EDT ? [facility] ?[address] ?[place] [address] ? Ultrasound Report ? Signed ? Patient: Rebecca,Maicol ?MR#: [id number] ?? 6 ? : 1960 ?Acct:[id number] ? Age/Sex: 64 / M ?ADM Date: 01/30/25 ? Loc: HO.US ? Attending Dr: Beckie Danielle DO ? Ordering Physician: Beckie Danielle DO ?? Date of Service: 01/30/25 ?? Procedure(s): US scrotum ?? Accession Number(s): [id number] ? cc: Beckie Danielle DO ? CLINICAL HISTORY: b l scrotal pain s p b l hydrocelectomy ? US scrotum with Doppler ? Comparison: 10/16/2024 ? Technique: Real time sonographic imaging, including color-flow imaging and ?? spectral analysis, was performed by the chair car driver. ?? Multiple artists' booking representative static images were saved for review. [...] by Franck Figueroa MD in OV> ? 01/30/25 1906 ? DD/ 04 ? TD/TT: 01/30/251904 ? Veterinary X Ray Operator: ? Procedure Note Donotuseinterpreter, Image - 01/30/2025 [place] [address] Ultrasound Report Signed Patient: Onofre Fernandez#: [id number] 6 : 9Acct:[id number] Age/Sex: 64 / MADM Date: 01/30/25 Loc: HO.US Attending Dr: Beckie Danielle DO Ordering Physician: Beckie Danielle DO Date of Service: 01/30/25 Procedure(s): US scrotum Accession Number(s): [id number] cc: Beckie Danielle DO CLINICAL HISTORY: b l scrotal pain s p b l hydrocelectomy US scrotum with Doppler Comparison: 10/16/2024 Technique: Real time sonographic imaging, including color-flow imaging and spectral analysis, was performed by the chair car driver. Multiple artists' booking representative static images were saved for review. [...] in OV> 01/30/251905 DD/ 04 TD/TT: 01/30/251904 Veterinary X Ray Operator: us Beckie Danielle DO IMG US PROCEDURES Final Resu lt * Vascular US carotid artery duplex bilateral (01/30/2025 2:07 PM EDT) 01/30/2025 2:07 PM EDT [facility] - 01/30/2025 3:26 PM EDT ? [facility] ?[address] ?[place] [address] ? Ultrasound Report ? Signed ? Patient: Maicol Fernandez ?MR#: [id number] ?? 6 ? : 1960 ?Acct:[id number] ? Age/Sex: 64 / M ?ADM Date: 01/30/25 ? Loc: HO.US ? Attending Dr: Beckie Danielle DO ? Ordering Physician: Beckie Danielle DO ?? Date of Service: 01/30/25 ?? Procedure(s): US carotid duplex BI ?? Accession Number(s): [id number] ? cc: Beckie Danielle DO ? EXAMINATION: [...] ??171 ? Peak ICA EDV: 51.6 ? US/ carotid duplex BI ?? IMPRESSION: ?? Findings consistent with 0-49% stenosis of the bilateral internal ?? carotid arteries. ? Electronically signed by: ??Kamlesh Metzger MD ??01/30/2025 03:24 PM EDT ? Dictated By: ?Kamlesh Metzger MD ? Signed By: ?<Electronically signed by Kamlesh Metzger MD in OV> ?03/26/25 1524 ? DD/ 1407 ? TD/TT: 01/30/25 1435 ? Veterinary X Ray Operator: ? Procedure Note Rosi, Image - 01/30/2025 [place] [address] Ultrasound Report Signed Patient: Onofre Fernandez#: [id number] 6 : 9Acct:[id number] Age/Sex: 64 / MADM Date: 01/30/25 Loc: HO.US Attending Dr: Beckie Danielle DO Ordering Physician: Beckie Daneille DO Date of Service: 01/30/25 Procedure(s): US carotid duplex BI Accession Number(s): [id number] cc: Beckie Danielle DO EXAMINATION: BILATERAL CAROTID [...] 01/30/25 1524 DD/ 1407 TD/TT: 01/30/25 1435 Veterinary X Ray Operator: us Beckie Danielle DO CV VASCULAR PROCEDURES Final Result [facility] [address] [place] [address] [phone] * Hematoxylin and Eosin Stain (01/15/2025 8:51 AM EDT) 01/15/2025 8:51 AM EDT 01/15/2025 10:35 AM EDT Juan [facility] - 01/16/2025 10:33 AM EDT ----- ------- Name: Maicol Fernandez ?Age/Sex: 64/M ? : 1960 Unit#: [id number] ?? Attend Dr: Jessi Bishop MD ?Re01/15/25 ?Status: DEP SDC ? Location: HO.SSS ?Disch: ? ----- ------- SPEC : [id number] ? RECD: 01/15/25 ? STATUS: ??SOUT ? REQ NUM: [id number] ? CARLITA: 01/15/25 ? SUBM DR: Jessi [...] Copies To: ?? Jessi Bishop MD ?? [facility] ?? [address] ?? [place] [address] ?? [phone] ?? Beckie Danielle DO ?? [facility] ?? [address] ?? [place] [address] ?? [phone] ----- ------- Signed (signature on file) Essie Morgan 01/16/25 1033 ? ----- ------- ? END OF REPORT ? Generic External Data Provider LAB BLOOD ORDERAB LES Final Result Performing Organization Address [facility] Co de Phone Number [facility] [address] [place] [phone] * (ABNORMAL) Glucose, Whole Blood (01/15/2025 7:09 AM EDT) Glucose, Whole Blood 146(H) 60 - 115 mg/dL [facility] Comment:METER #: [id number] 01/15/2025 7:09 AM EDT 01/15/2025 7:13 AM EDT Generic External Data Provider LAB BLOOD ORDERAB LES Final Result Performing Organization Address [facility] de Phone Number [facility] [address] [place] [phone] * (ABNORMAL) Vitamin D, 25-Hydroxy, Total, Immunoassay (01/04/2025 12:21 PM EST) Vitamin D 25-OH Total 18.2(L) >30 ng/mL [facility] Comment:Health Based Referen ce Values*< 20 ng/mL Prbcbuyde46-90 ng/mL Insufficient> 30 ng/mL Sufficient*Tanya CAMILO. N [...] DO LAB BLOOD ORDERABLES Final R esult [facility] [address] [place] [phone] * Albumin, Random Urine W/Creatinine (01/04/2025 12:21 PM EST) Creatinine, Urine 305.99 mg/dL [facility] Microalbumin Urine 20.0 mg/L [facility] Microalbum Creatinine Ratio Ur 6.5 <30 ug/mg cr [facility] Comment:Albumin/Creatinine R atio Reference Ranges: Normal: < 30 ug/mg creatinine Microalbuminuria: 30 - 300 ug/mg creatinineClinical Albuminuria: > 300 ug/mg creatinine Urine (Urine, Random) 01/04/2025 12:21 PM EST 01/04/2025 1:14 PM EST Beckie Danielle DO LAB URINE ORDERABLES Final R esult Performing Organization Address [facility] Co de Phone Number [facility] [address] [place] [phone] * Hepatitis C Antibody with Reflex to HCV, RNA, Quantitative, Real-Time PCR (01/04/2025 12:21 PM EST) Hepatitis C Antibody Nonreactive Nonreactive [facility] Comment:Antibodies to HCV no t detected; does not exclude early acuteHCV infection. Blood Venous blood specimen / Unknown 01/04/2025 12:21 PM EST 01/04/2025 1:24 PM EST Beckie Danielle DO LAB BLOOD ORDERABLES Final R esult Performing Organization Address City/[facility]/ZIP Co de Phone Number [facility] [address] [place] [phone] * Chlamydia/N. Gonorrhoeae RNA, TMA, Urogenitial (01/04/2025 12:21 PM EST) CT PCR NOT DETECTED Not Detect. [facility] Comment:A not detected test result does [...] psychologicalconsequences. NG PCR NOT DETECTED Not Detect. [facility] Comment:A not detected test result does [...] PM EST 01/04/2025 1:14 PM EST Narrative [facility] - 01/04/2025 3:23 PM EST Urine us Beckie Danielle DO LAB MICROBIOLOGY - GENERAL O RDERABLES Final Result [facility] [address] [place] [phone] * Hepatitis B surface antigen, EIA (01/04/2025 12:21 PM EST) [facility] Hepatitis B Surface Ag Negative Negative [facility] Blood Venous blood specimen / Unknown 01/04/2025 12:21 PM EST 01/04/2025 1:24 PM EST Beckie Danielle LAB BLOOD ORDERABLES Final R esult Performing Organization Address City/[facility]/ZIP Co de Phone Number [facility] [address] [place] [phone] * Hepatitis B Core Antibody, Total (01/04/2025 12:21 PM EST) [facility] Hepatitis B Core Antibody Reactive Nonreactive [facility] Comment:Presumptive evidence of anti-HBc. Blood Venous blood specimen / Unknown 01/04/2025 12:21 PM EST 01/04/2025 1:24 PM EST Beckie Danielle DO LAB BLOOD ORDERABLES Final R esult Performing Organization Address City/[facility]/ZIP Co de Phone Number [facility] [address] [place] [phone] * HIV-1/2 Antigen and Antibodies, Fourth Generation, with Reflexes (01/04/2025 12:21 PM EST) [facility] HIV AB/AG Nonreactive Nonreactive [facility] Comment:HIV-1 p24 Ag and/or HIV-1/HIV-2 Ab not detected.A test result that is nonreactive does not exclude thepossibility of exposure to or infection with HIV-1 and/orHIV-2. Nonreactive results in this assay for individualswith prior exposure to HIV-1 and/or HIV-2 may be due toantigen and antibody levels that are below the limit ofdetection of this assay.The [employer] HIV Ag/Ab Combo assay result andsupplemental assay results should be interpreted inconjunction with the patient's clinical presentation,history and other laboratory results. If the results areinconsistent with clinical evidence, additional testing issuggested to confirm the result. Blood Venous blood specimen / Unknown 01/04/2025 12:21 PM EST 01/04/2025 1:24 PM EST [facility] BLOOD ORDERABLES Final R esult Performing Organization Address [facility] Co de Phone Number [facility] [address] [place] [phone] * Hepatitis B Surface Antibody, Qualitative (01/04/2025 12:21 PM EST) Pathologist [facility] ~Hepatitis B Surface Antibody REACTIVE Nonreactive [facility] Comment:REACTIVE: > 11.99 mI U/mL Blood Venous blood specimen / Unknown 01/04/2025 12:21 PM EST 01/04/2025 1:24 PM EST Beckie Lolis LAB BLOOD ORDERABLES Final R esult Performing Organization Address [facility] de Phone Number [facility] [address] [place] [address] [phone] * (ABNORMAL) CBC (01/04/2025 12:21 PM EST) Pathologist [facility] White Blood Count 7.6 4.8 - 10.8 X10*3/uL [facility] Red Blood Count 4.52(L) 4.60 - 5.80 X10*6/uL [facility] Hemoglobin 13.9(L) 14.0 - 18.0 g/dl [facility] Hematocrit 41.5(L) 42.0 - 52.0 % [facility] Mean Corpuscular Volume 91.8 80.0 - 98.0 fL [facility] Mean Corpuscular Hemoglobin 30.8 27.0 - 33.0 pg [facility] Mean Corpuscular HGB Conc 33.5 31.0 - 36.0 g/dl [facility] Red Cell Distribution Width 13.0 11.0 - 16.0 % [facility] Platelet Count 234 160 - 400 X10*3/uL [facility] Mean Platelet Volume 11.8 9.4 - 12.4 fL [facility] NRBC Pct Auto 0.0 0.0 - 0.2 /100WBC [facility] NRBC Abs Auto 0.000 0.0 - 0.012 X10*3/uL [facility] Blood Venous blood specimen / Unknown 01/04/2025 12:21 PM EST 01/04/2025 1:14 PM EST [facility] LAB BLOOD ORDERABLES Final R esult Performing Organization Address [facility]/ZIP Co de Phone Number [facility] [address] [place] [phone] * TSH (01/04/2025 12:21 PM EST) Thyroid Stimulating Hormone 3.45 0.32 - 4.0 uIU/mL [facility] Comment:Note: A sustained TS H level above 2.5 uIU/mL may warrant further investigation. TSH 3rd Generation ([employer]) Blood Venous blood specimen / Unknown 01/04/2025 12:21 PM EST 01/04/2025 1:24 PM EST [facility] LAB BLOOD ORDERABLES Final R esult Performing Organization Address City/[facility]/ZIP Co de Phone Number [facility] [address] [place] [phone] * T4, Free (01/04/2025 12:21 PM EST) Free T4 (Free Thyroxine) 0.81 0.71 - 1.85 ng/dL [facility] Blood Venous blood specimen / Unknown 01/04/2025 12:21 PM EST 01/04/2025 1:24 PM EST Beckie Lolis DO LAB BLOOD ORDERABLES Final R esult Performing Organization Address City/[facility]/ZIP Co de Phone Number [facility] [address] [place] [phone] * (ABNORMAL) Hemoglobin A1c (01/04/2025 12:21 PM EST) Hemoglobin A1c 7.5(H) <6.0 % [facility] Comment:Hemoglobin A1C Refer ence Range Adults: 4.8 - 6.0 % Non diabetic: < 6.0 % Goal: < 7.0 %Additional Action Suggested: > 8.0 %Note: Hemoglobin A1c results are invalid for patients with abnormal amounts of HbF. Blood transfusions may impact the HbA1c concentration in the patient sample. Estimated Average Glucose 169 mg/dL [facility] Comment:eAG = Estimated ave rage glucose which is %A1C expressed asaverage glucose, using the formula of the [id number]-DtzmcncAdxdrdx Glucose study (ADAG), Diabetes Care, Vol.31,#8,Jun. 2007 Blood Venous blood specimen / Unknown 01/04/2025 12:21 PM EST 01/04/2025 1:14 PM EST us Beckie Danielle DO LAB BLOOD ORDERABLES Final R esult Performing Organization Address City/[facility]/ZIP Co de Phone Number [facility] [address] [place] [phone] * (ABNORMAL) Hepatic Function Panel (01/04/2025 12:21 PM EST) Bilirubin, Total 0.5 0.0 - 1.0 mg/dL [facility] Bilirubin, Direct 0.1 0.0 - 0.5 mg/dL [facility] Aspartate Amino Transferase 21 5 - 37 U/L [facility] Alanine Aminotransferase 54(H) 0 - 40 U/L [facility] Total Protein 8.4(H) 6.5 - 8.0 g/dL [facility] Albumin Level 4.4 3.5 - 5.0 g/dL [facility] Alkaline Phosphatase 95 39 - 117 U/L [facility] Blood Venous blood specimen / Unknown 01/04/2025 12:21 PM EST 01/04/2025 1:24 PM EST Beckie Lolis DO LAB BLOOD ORDERABLES Final R esult Performing Organization Address City/[facility]/ZIP Co de Phone Number [facility] [address] [place] [phone] * (ABNORMAL) Lipid Panel, Standard (01/04/2025 12:21 PM EST) Triglycerides 463(H) <150 mg/dL [facility] Comment:Slight Lipemia.Jorge able Triglyceride: less than 150 mg/dLBorderline High Triglyceride 150-199 mg/dLHigh Triglyceride: 200-499 mg/dLVery High Triglyceride: greater than or equal to 5OO mg/dL Cholesterol 195 <200 mg/dL [facility] Comment:Desirable Cholestero l: less than 200 mg/dLBorderline High Cholesterol: 200-239 mg/dLHigh Cholesterol: greater than 239 mg/dL LDL Cholesterol Calculated TNP <100 mg/dL [facility] Comment:Unable to calculate the LDL. The formula of Friedwald,Deluca, and Malini is only valid if the triglycerides areless than 400 mg/dl. HDL Cholesterol 35(L) >40 mg/dL [facility] Comment:Desirable HDL: great er than 40 mg/dL Note: This HDL assay may give artificially low results in patients with liver disease. Blood Venous blood specimen / Unknown 01/04/2025 12:21 PM EST 01/04/2025 1:24 PM EST Beckie Danielle DO LAB BLOOD ORDERABLES Final R esult Performing Organization Address [facility]/ZIP Co de Phone Number [facility] [address] [place] [phone] * (ABNORMAL) Basic Metabolic Panel (01/04/2025 12:21 PM EST) Pathologist [facility] Sodium 141 135 - 145 mmol/L [facility] Potassium 4.9 3.3 - 5.1 mmol/L [facility] Chloride 106 96 - 108 mmol/L [facility] Carbon Dioxide 29 22 - 29 mmol/L [facility] Anion Gap 11(L) 12 - 20 [facility] Urea Nitrogen (BUN) 14 9 - 16 mg/dL [facility] Creatinine, Serum 1.08 0.5 - 1.4 mg/dL [facility] Estimated Glomerular Filt Rate >60 [facility] Comment:Chronic Kidney Disea se: Estimated GFR < 60 mL/min/1.23x4Fsiveo Kidney Disease: Estimated GFR < 15 mL/min/1.73m2 Glucose 172(H) 60 - 115 mg/dL [facility] Calcium 9.5 8.4 - 10.2 mg/dL [facility] Blood Venous blood specimen / Unknown 01/04/2025 12:21 PM EST 01/04/2025 1:24 PM EST Beckie Danielle DO LAB BLOOD ORDERABLES Final R esult [facility] [address] [place] [address] [phone] * (ABNORMAL) POCT HGB A1C (01/04/2025 11:38 AM EST) Pathologist [facility] Hemoglobin A1C 7.4(A) 4.0 - 6.0 % QC Media Lot # [id number] Lot# Expiration Date ,[id number] Blood 01/04/2025 11:3 8 AM EST Beckie Danielle DO POINT OF CARE TEST ENTER/PRIYA T ORDERABLES Final Result * (ABNORMAL) POCT Glucose (01/04/2025 11:38 AM EST) Pathologist [facility] Glucose Blood, POC 269(A) 60 - 200 mg/dL QC Media Lot # [id number] Lot# Expiration Date [id number] Blood Capillary blood specimen / Unknown 01/04/2025 11:38 AM EST Beckie Danielle DO POINT OF CARE TEST ENTER/PRIYA T ORDERABLES Final Result from Last 3 Months Insurance [employer] (O D-SNP) Care Teams Rn Field Case Manager Relationship Specialty Start Date End Date Beckie Danielle DO [address] [place] [id number] PCP - General Family Medicine 11/28/13
--- OUTSIDE RECORDS SUMMARY | 2025-03-07 15:24 | XMS_ITS | Encounter Summary ---
Author Organization [employer] Address [address] [facility] 7t [place] [address] Care Team Providers Care Osd Clerk Name Role Phone Beckie Danielle DO Primary Care Provider + [phone] Encounter Details Date Type Department Care Team (Late st Contact Info) Description 03/07/2025 Orders Only [facility] [address] [place] [address] ProviderNoe MD Social History Tobacco Use Types Packs/Day Years [...] adhere to medication regimen General No Mandi Murdock, PharmD Hemoglobin A1c < 7 Result Component 7.5( 12:21 PM EST) No Rainer Bishop PharmJoao Record your blood sugar as directed Result Component No Mandi Murdock PharmD documented as of this encounter Procedures Procedure Name Priority Date/Time Associated Diagnosis Comments CT ABD/PELVIS W/ IV CONTRAST ONLY Routine 03/05/2025 11:30 AM EDT documented in this encounter Results * CT ABD/PELVIS W/ IV CONTRAST ONLY (03/05/2025 11:30 AM EDT) Anatomical Region Laterality Modality Body, Pelvis, Abdomen Computed T omography us Historical Provider MD HEARD CT PROCEDURES Final R esult documented in this encounter Visit Diagnoses Not on filedocumented in this encounter Additional Health Concerns Assessment Noted Time PHQ-9 Depression Total Score: 0 01/04/20 25 11:37 AM EST documented as of this encounter Care Teams Osd Clerk Relationship Specialty Start Date End Date Beckie Danielle DO [address] [place] [id number] PCP - General Family Medicine 11/28/13 documented as of this encounter
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
--- OUTSIDE RECORDS SUMMARY | 2025-03-07 15:24 | XMS_ITS | Encounter Summary ---
Author Organization [employer] Address [address] [facility] 7t [place] [address] Care Team Providers Care Sanding Machine Tender Name Role Phone Beckie Danielle DO Primary Care Provider + [phone] Reason for Visit * Reason Comments Med Refill Encounter Details Date Type Department Care Team ([facility] st Contact Info) Description 12/06/[address] [facility] [address] [place], [place] [phone] Beckie Danielle DO [address] [place], [place] [phone] Type 2 diabetes mellitus without complication, without long-term current use of insulin ([facility]) Social History Tobacco [...] complication, without long-term current use of insulin ([facility]) documented in this encounter Additional Health Concerns Assessment Noted Time PHQ-9 Depression Total Score: 0 01/08/20 23 10:31 AM EST documented as of this encounter Care Teams Sanding Machine Tender Relationship Specialty Start Date End Date Beckie Danielle DO [address] [place] [address] PCP - General Family Medicine 11/28/13 documented as of this encounter
--- OUTSIDE RECORDS SUMMARY | 2025-03-07 15:24 | XMS_ITS | Encounter Summary ---
Author Organization [employer] Address [address] [facility] 7t [place] [address] Care Team Providers Care Economic Analyst Name Role Phone Beckie Danielle DO Primary Care Provider + [phone] Reason for Visit * Reason Comments Med Refill Encounter Details Date Type Department Care Team ([facility] st Contact Info) Description 09/10/2024 Refill [facility] [address] [place], [place] [phone] Beckie Danielle DO [address] [place], [place] [phone] Type 2 diabetes mellitus without complication, without long-term current use of insulin ([facility]) Social History Tobacco Use Types Packs/Day [...] complication, without long-term current use of insulin ([facility]) documented in this encounter Additional Health Concerns Assessment Noted Time PHQ-9 Depression Total Score: 0 01/08/20 23 10:31 AM EST documented as of this encounter Care Teams Economic Analyst Relationship Specialty Start Date End Date Beckie Danielle DO [address] [place] [id number] PCP - General Family Medicine 11/28/13 documented as of this encounter
--- OUTSIDE RECORDS SUMMARY | 2025-03-07 15:24 | XMS_ITS | Encounter Summary ---
Author Organization [employer] Address [address] [facility] 7t [place] [address] Care Team Providers Care Side Puller Name Role Phone Beckie Danielle DO Primary Care Provider + [phone] Reason for Visit * Reason Onset Date Comments Appointment Request 10/23/2024 Encounter Details Date Type Department Care Team ([facility] st Contact Info) Description 10/23/2024 Telephone [facility] [address] [place] [address] Beckie Danielle DO [address] [place] [address] Appointment Request Social History Tobacco Use Types [...] reschedule CDTM visit. Please contact pt at [phone]. documented in this encounter Plan of Treatment [...] documented as of this encounter Care Teams Side Puller Relationship Specialty Start Date End Date Beckie Danielle DO [address] [place] [id number] PCP - General Family Medicine 11/28/13 documented as of this encounter
== END ==
LOC: HO.CARD 12:55
PROVIDERS: PCP Family Medicine; Visit Provider Nurse Practitioner Family
DX: R00.2 Palpitations (principal)
CPT/HCPCS: 93242

== ENCOUNTER → 2025-03-07 12:58 | Outpatient (BNV) | payer OTHER, SELFPAY | PROVIDERS: PCP Family Medicine; Visit Provider Internal Medicine Cardiovascular Disease | DX: R00.1 Bradycardia, unspecified (principal) | CPT/HCPCS: 93227 ==

== ENCOUNTER 2025-10-01 08:30 | Outpatient (AMB) | payer MEDICARE, MEDICAID, SELFPAY ==
[2025-10-01 08:34] VITALS: BP 118/70; PULSE 68; BMI 31.9
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
--- OUTSIDE RECORDS SUMMARY | 2025-10-01 08:49 | XMS_ITS | Encounter Summary ---
Author Organization [employer] Address [address] [facility] 7t [place] [address] Care Team Providers Care Turf Keeper Name Role Phone Beckie Danielle DO Primary Care Provider + [phone] Reason for Visit * Reason Comments Med Refill Encounter Details Date Type Department Care Team ([facility] st Contact Info) Description 12/06/2024 Refill [facility] [address] [place], [place] [phone] Beckie Danielle DO [address] [place] [address] Type 2 diabetes mellitus without complication, without long-term current use of insulin ([facility]) Social History Tobacco Use Types [...] Author Blood Pressure < 140/90 Blood Pressure 126/70(2024 9:59 AM EDT) No DellogonoSukhiis, PharmD Record your blood pressure once per day Blood Pressure No Puia, Mandi, PharmD Patient will adhere to medication regimen General No Puia, Mandi, PharmD Hemoglobin A1c < 7 Result Component 8(07/30/2025 10:02 AM EDT) No Dellogono Rainer, PharmD Record your blood sugar as directed Result Component No Puia, Mandi, PharmD documented as of this encounter Visit Diagnoses Diagnosis Type 2 diabetes mellitus without complication, without long-term current use of insulin (HCC) documented in this encounter Additional Health Concerns Assessment Noted Time PHQ-9 Depression Total Score: 0 01/08/20 10:31 AM EST documented as of this encounter Care Teams Turf Keeper Relationship Specialty Start Date End Date Beckie Danielle DO [address] [place] [id number] PCP - General Family Medicine 11/28/13 documented as of this encounter
--- OUTSIDE RECORDS SUMMARY | 2025-10-01 08:49 | XMS_ITS | Encounter Summary ---
Author Organization [employer] Address [address] [facility] 7[address] [place] [address] Care Team Providers Care Clerical Office Name Role Phone Beckie Danielle DO Primary Care Provider [phone] Reason for Visit * Reason Onset Date Comments Appointment Request 10/23/2024 Encounter Details Date Type Department Care Team ([facility] st Contact Info) Description 10/23/2024 Telephone [facility] MEDICINE [address] [place] [address] Beckie Danielle DO [address] [place] [address] Appointment Request Social History Tobacco Use Types [...] reschedule CDTM visit. Please contact pt at [phone]. documented in this encounter Plan of Treatment Not on file documented as of this encounter Goals Goal Patient Goal Type Associated Problems Recent Progress Patient-Stated? Author Blood Pressure < 140/90 Blood Pressure 126/70(2024 9:59 AM EDT) No Dellogono, Rainer, PharmD Record your blood pressure once per day Blood Pressure No Puia, Mandi, PharmD Patient will adhere to medication regimen General No Puia, Mandi, PharmD Hemoglobin A1c < 7 Result Component 8(07/30/2025 10:02 AM EDT) No Dellogono, Rainer, PharmD Record your blood sugar as directed Result Component No Puia, Mandi, PharmD documented as of this encounter Visit Diagnoses Not on filedocumented in this encounter Additional Health Concerns Assessment Noted Time PHQ-9 Depression Total Score: 0 01/08/20 10:31 AM EST documented as of this encounter Care Teams Clerical Office Relationship Specialty Start Date End Date Beckie Danielle DO [address] [place] [phone] PCP - General Family Medicine 1/22/14 documented as of this encounter
--- OUTSIDE RECORDS SUMMARY | 2025-10-01 08:49 | XMS_ITS | Encounter Summary ---
Author Organization [employer] Address [address] [facility] 7[address] [place] [address] Care Team Providers Care Ski Edge Painter Name Role Phone Beckie Danielle DO Primary Care Provider [phone] Mandi Murdock PharmD Unavailable [phone] Reason for Visit * Reason Onset Date Comments Appointment Request 05/08/2024 Encounter Details Date Type Department Care Team (Late st Contact Info) Description 05/08/2024 Telephone [facility] MEDICINE [address] [place] [address] Beckie Danielle DO [address] [place] [address] Appointment Request Social History Tobacco Use Types [...] by nurse once insurance is good call [facility] to schedule appt documented in this [...] documented as of this encounter Care Teams Ski Edge Painter Relationship Specialty Start Date End Date Beckie Danielle DO [address] [place] [phone] PCP - General Family Medicine 11/28/13 Mandi Murdock, Glenna [address] [place] [phone] Pharmacist Internal Medicine 06/08/23 05/29/24 documented as of this encounter
--- OUTSIDE RECORDS SUMMARY | 2025-10-01 08:49 | XMS_ITS | Encounter Summary ---
Author Organization [employer] Address [address] [facility] [address] [place] [address] Care Team Providers Care Pressroom Foreman Name Role Phone Beckie Danielle DO Primary Care Provider DelRainer ovalle PharmD Unavailable Unavail able Mandi Murdock PharmD Unavailable [phone] Encounter Details Date Type Department Care Team ([facility] st Contact Info) Description 11/29/2022 Orders Only [facility] MEDICINE [address] [place] [address] Kya Cervantes LPN Social History Tobacco Use [...] PM EST) CRP, High Sensitivity >10.0(A) mg/L [facility] Comment:Reference RangeOptim al <1.0Kevyn PS [...] with infection and inflammation.THIS TEST WAS PERFORMED AT:[facility] [place] [address] (1)[place] [id number] PENNY MD 12/16/2022 3:49 PM EST 12/16/2022 3:49 PM EST [facility] External Provider LAB BLO OD ORDERABLES Final Result [facility] [address] [place] [phone] * CEA (12/16/2022 3:49 PM EST) Pathologist [facility] Carcinoembryonic Antigen 2.70 ng/mL [facility] Comment:CEA Reference Range: 93.4% Non-Smokers = 0.0-3.0 ng/mL 95.6% Smokers = 0.0-5.0 ng/mLCEA Methodology: Mcpherson Alinity i ChemiluminescentMicroparticle Immunoassay (CMIA)CEA testing can have significant value in monitoring ofpatients with diagnosed malignancies in whom changingconcentrations of CEA are observed. Values obtained withdifferent assay methods cannot be used interchangeably. 12/16/2022 3:49 PM EST 12/16/2022 3:49 PM EST [facility] External Provider LAB BLO OD ORDERABLES Final Result Performing Organization Address City/[facility] Co de Phone Number [facility] [address] [place] [phone] * (ABNORMAL) Ferritin (12/16/2022 3:49 PM EST) Ferritin 467(H) 20 - 250 ng/mL [facility] 12/16/2022 3:49 PM EST 12/16/2022 3:49 PM EST [facility] External Provider LAB BLO OD ORDERABLES Final Result Performing Organization Address [facility] Co de Phone Number [facility] [address] [place] [phone] * Lipid Panel, Standard (12/16/2022 3:49 PM EST) Triglycerides 487 mg/dL [facility] Comment:Desirable Triglyceri de: less than 150 mg/dLBorderline High Triglyceride 150-199 mg/dLHigh Triglyceride: 200-499 mg/dLVery High Triglyceride: greater than or equal to 5OO mg/dL Cholesterol 178 mg/dL [facility] Comment:Desirable Cholestero l: less than 200 mg/dLBorderline High Cholesterol: 200-239 mg/dLHigh Cholesterol: greater than 239 mg/dL LDL Cholesterol Calculated TNP mg/dl [facility] Comment:Unable to calculate the LDL. The formula of Friedwald,Deluca, and Malini is only valid if the triglycerides areless than 400 mg/dl. HDL Cholesterol 33 mg/dL [facility] Comment:Desirable HDL: great er than 40 mg/dL Note: This HDL assay may give artificially low results in patients with liver disease. 12/16/2022 3:49 PM EST 12/16/2022 3:49 PM EST [facility] External Provider LAB BLO OD ORDERABLES Final Result [facility] [address] [place] [phone] [phone] * (ABNORMAL) Comprehensive Metabolic Panel (12/16/2022 3:49 PM EST) Sodium 139 135 - 145 mmol/L [facility] Potassium 4.0 3.3 - 5.1 mmol/L [facility] Chloride 99 96 - 108 mmol/L [facility] Carbon Dioxide 30(H) 22 - 29 mmol/L [facility] Anion Gap 14 12 - 20 [facility] Urea Nitrogen (BUN) 20(H) 9 - 16 mg/dL [facility] Creatinine, Serum 1.61(H) 0.5 - 1.4 mg/dL [facility] Estimated Glomerular Filt Rate 43 [facility] Comment:NOTE: For -Am erican individuals, multiply the result by 1.210.Chronic Kidney Disease: Estimated GFR < 60 mL/min/1.81n3Tqtxcd Kidney Disease: Estimated GFR < 15 mL/min/1.73m2 Glucose 253(H) 60 - 115 mg/dL [facility] Calcium 9.5 8.4 - 10.2 mg/dL [facility] Bilirubin, Total 0.6 0.0 - 1.0 mg/dL [facility] Aspartate Amino Transferase 37 5 - 37 U/L [facility] Alanine Aminotransferase 27 0 - 40 U/L [facility] Total Protein 7.5 6.5 - 8.0 g/dL [facility] Albumin Level 4.5 3.5 - 5.0 g/dL [facility] Alkaline Phosphatase 89 39 - 117 U/L [facility] 12/16/2022 3:49 PM EST 12/16/2022 3:49 PM EST [facility] External Provider LAB BLO OD ORDERABLES Final Result [facility] [address] [place], [place] [phone] * (ABNORMAL) CBC auto differential (12/16/2022 3:49 PM EST) White Blood Count 8.4 4.8 - 10.8 X10*3/uL [facility] Red Blood Count 4.62 4.60 - 5.80 X10*6/uL [facility] Hemoglobin 13.8(L) 14.0 - 18.0 g/dl [facility] Hematocrit 41.2(L) 42.0 - 52.0 % [facility] Mean Corpuscular Volume 89.2 80.0 - 98.0 fL [facility] Mean Corpuscular Hemoglobin 29.9 27.0 - 33.0 pg [facility] Mean Corpuscular HGB Conc 33.5 31.0 - 36.0 g/dl [facility] Red Cell Distribution Width 12.7 11.0 - 16.0 % [facility] Platelet Count 246 160 - 400 X10*3/uL [facility] Mean Platelet Volume 11.9 9.4 - 12.4 fL [facility] Neutrophils Percent Auto 64.9 45 - 73 % [facility] Imm Gran Pct Auto 0.2 0.0 - 0.4 % [facility] Lymphocytes Percent Auto 26.4 20 - 40 % [facility] Monocytes Percent Auto 6.2 2 - 11 % [facility] Eosinophils Percent Auto 1.9 0 - 4 % [facility] Basophils Percent Auto 0.4 0 - 2 % [facility] NRBC Pct Auto 0.0 0.0 - 0.2 /100WBC [facility] Neutrophils Absolute Auto 5.5 2.0 - 8.3 x10*3/uL [facility] Imm Gran Abs Auto 0.02 0.00 - 0.03 X10*3/uL [facility] Lymphocytes Absolute Auto 2.2 1.2 - 4.9 X10*3/uL [facility] Monocytes Absolute Auto 0.5 0.1 - 1.2 X10*3/uL [facility] Eosinophils Absolute Auto 0.2 0.0 - 0.4 X10*3/uL [facility] Basophils Absolute Auto 0.0 0.0 - 0.2 X10*3/uL [facility] NRBC Abs Auto 0.000 0.0 - 0.012 X10*3/uL [facility] 12/16/2022 3:49 PM EST 12/16/2022 3:49 PM EST [facility] External Provider LAB BLO OD ORDERABLES Final Result Performing Organization Address City/State/[facility] Co de Phone Number [facility] [address] [place] [phone] documented in this encounter Visit Diagnoses Not on filedocumented in this encounter Care Teams Pressroom Foreman Relationship Specialty Start Date End Date Beckie Danielle DO [address] [place] [phone] PCP - General Family Medicine 11/28/13 Rainer Bishop, PharmD [address] [place] [phone] Pharmacist Internal Medicine 01/12/23 06/07/23 Mandi Murdock PharmD [address] [place] [phone] Pharmacist Internal Medicine 06/08/23 05/29/24 documented as of this encounter
--- OUTSIDE RECORDS SUMMARY | 2025-10-01 08:49 | XMS_ITS | Clinical Summary ---
Author Organization [employer] Address [address] [facility] 7t [place] [address] Care Team Providers Care Certified Shorthand Reporter Name Role Phone Beckie Danielle DO Primary [...] 3 Active fluticasone (Flonase) 50 MCG/ACT nasal sprayIndications :Seasonal allergic rhinitis, unspecified trigger SPRAY 2 SPRAYS INTO EACH NOSTRIL EVERY DAY 48 mL 1 3 Active Aspirin Low Dose 81 MG EC tabletIndication s:Type 2 diabetes mellitus with other specified complication, unspecified whether fpc insulin use (HCC) TAKE 1 TABLET BY MOUTH EVERY DAY 90 tablet 3 4 Active Blood Glucose Monitoring Suppl (FreeStyle Lite) deviceIndication s:Type 2 diabetes mellitus without complication, without long-term current use of insulin (HCC) Inject 1 each under the skin 2 times daily. Use to test blood sugar as directed 1 each 4 Active tadalafil (Cialis) 20 MG tablet TAKE 1 TABLET BY MOUTH 1/2 TO 1 HOUR BEFORE SEXUAL ACTIVITY 4 Active glucose blood (FREESTYLE LITE) test stripIndications :Type 2 diabetes mellitus without complication, without long-term current use of insulin ([facility]) Use to test blood sugar twice daily as directed 100 strip 5 Active FreeStyle lancetsIndicatio ns:Type 2 diabetes mellitus without complication, without long-term current use of insulin ([facility]) 1 each by Other route 2 times daily. Use to test blood sugar twice daily as directed 100 each 5 Active amLODIPine (Norvasc) 10 MG tablet Take 1 tablet (10 mg) by mouth Once per day. 30 tablet 11 5 01/04/20 26 Active cholecalciferol (Vitamin D-3) 50 MCG (2000 UT) capsule Take 1 capsule (50 mcg) by mouth Once per day. 90 capsule 3 5 01/11/20 26 Active lisinopril 40 MG tabletIndication s:Essential hypertension Take 1 tablet (40 mg) by mouth in the morning. 90 tablet 3 5 Active levothyroxine (Synthroid, Levoxyl) 75 MCG tablet TAKE 1 TABLET BY MOUTH DAILY BEFORE BREAKFAST 90 tablet 1 5 Active sildenafil (Viagra) 50 MG tablet TAKE 1 TABLET 1 HOUR BEFORE SEXUAL RELATIONS ONCE DAILY NEEDED 10 tablet 2 5 Active nystatin (Mycostatin) 200787 UNIT/GM powder Apply topically 2 times daily. 30 g 3 5 05/17/20 26 Active metFORMIN XR (Glucophage-XR) 500 MG 24 hr tabletIndication s:Type 2 diabetes mellitus without complication, without long-term current use of insulin ([facility]) TAKE 2 TABLET BY ORAL ROUTE 2 TIMES EVERY DAY WITH BREAKFAST AND DINNER 360 tablet 3 5 Active metoprolol succinate XL (Toprol-XL) 50 MG 24 hr tabletIndication s:Essential hypertension TAKE 1 TABLET (50 MG) BY MOUTH IN THE MORNING DO NOT CRUSH OR CHEW 90 tablet 5 5 Active Dulaglutide (Trulicity) 3 MG/0.5ML solution auto-injectorInd ications:Type 2 diabetes mellitus without complication, without long-term current use of insulin ([facility]) Inject 3 mg under the skin 1 (one) time per week for 28 days. 2 mL 1 5 10/10/20 25 Active Dulaglutide (Trulicity) 1.5 MG/0.5ML solution auto-injectorInd ications:Type 2 diabetes mellitus without complication, without long-term current use of insulin (HCC) Inject 1.5 mg under the skin 1 (one) time per week. 2 mL 1 5 09/12/20 25 Discontin ued(Dose adjustmen t) Active Problems Problem Noted Date Diagnosed Date Erectile dysfunction 12/02/2023 Assessment & Plan (12/02/2023 9:53 AM EST): Reportedly not improving w Viagra Explained it could be related to DM Refer to urology Hydrocele in adult 12/02/2023 Overview (12/02/2023): [place] [place] & Plan (12/02/2023 2:20 [...] will refer to urology Candidiasis of perineum 12/02/202305/08 Assessment & Plan (12/02/2023 9:55 AM EST): [...] Encounters Date Type Department Care Team Description 09/09/2025 Refill [facility] [address] [place] [phone] Beckie Danielle, Type 2 diabetes mellitus without complication, without long-term current use of insulin ([facility]) 08/19/2025 Refill [facility] [address] [place] [phone] Beckie Danielle, Type 2 diabetes mellitus without complication, without long-term current use of insulin ([facility]); Essential hypertension 08/16/2025 Refill [facility] [address] [place] [phone] Beckie Danielle, Type 2 diabetes mellitus without complication, without long-term current use of insulin ([facility]) 07/30/2025 9:45 AM EDT Office Visit [facility] [address] [place] [phone] Beckie Danielle, Type 2 diabetes mellitus without complication, without long-term current use of insulin ([facility]/HCC) (Primary Dx); Essential hypertension; Hyperlipidemia LDL goal <70; Obstructive sleep apnea; Stenosis of right carotid artery; Chronic constipation; Subclinical hypothyroidism; History of squamous cell carcinoma; Scrotal pain; Healthcare maintenance; Dietary counseling; Exercise counseling; Encounter for immunization 07/30/2025 Travel 07/29/2025 Telephone [facility] [address] [place] [phone] Beckie Danielle DO Chart Prep 07/22/2025 Patient Outreach [facility] [address] [place] [address] Beckie Danielle DO Pre-visit Planning (Unable to complete assessment patient upset at question and ended call); Medicare Annual Wellness Visit Initial 07/10/2025 Telephone [facility] [address] [place] [address] Beckie Danielle DO Recall Appointment 07/10/2025 Travel from Last 3 Months Immunizations Immunization Administration Dates Next Due Hep B, adult 10/27/2017,10/08/2015,07/29/2014 Influenza injectable quadriv alent IIV4 with preservative 10/27/2017,10/08/2015 Influenza injectable quadriv alent preservative free 09/06/2022,10/12/2021,11/02/2019,11/16 Influenza, High Dose Seasona l, Preservative Free 07/30/2025 Influenza, IIV3, injectable 07/29/2014 Pfizer Covid-19 Vaccine 12+ paul-sucrose (Treadwell Cap) 03/16/2022 Pneumococcal Conjugate PCV 20 06/08/2023 Pneumococcal Polysaccharide PPSV23 07/29/2014 RSV Bivalent 07/23/2024 Tdap 07/30/2025,07/29/2014 Zoster, Recombinant 07/23/2024,06/08/2023 Social History Tobacco Use Types Packs/Day Years Used Date Smoking Tobacco: Never Passive Smoke Exposure: Never Smokeless Tobacco: Never Tobacco Cessation:Counseling Given: Not Answered Alcohol Use Standard Drinks/Week Comments Never 0 (1 standard drink = 0.6 oz pur e alcohol) Depression Answer Date Recorded Patient Health Questionnaire-9 Score 13 07/30/2025 Patient Health Questionnaire-9 Score 13 07/30/2025 Last PHQ-9: Questionnaire Data Not on file 0 07/30/2025 Housing Stability Answer Date Recorded What is your housing situation today? I have tabitha sing 07/30/[address] you li ve. Do you have problems with any of the following? None of the above 07/30/2025 Food Insecurity Answer Date Recorded Within the past 12 months, y ou worried that your food would run out before you got money to buy more: Never True 2024 Within the past 12 months,th e food you bought just didn't last and you didn't have enough money to get more: Sometimes True 07/30/2025 Transportation Answer Date Recorded In the past 12 months, has l ack of transportation kept you from medical appts, meetings, work or from getting things needed for daily living? No 07/30/2025 Utilities Answer Date Recorded In the past 12 months, has t he electric, gas, oil or water company threatened to shut off services in your home? No 07/30/2025 Depression Answer Date Recorded Patient Health Questionnaire-2 Score 4 07/30/2025 Internet Access Answer Date Recorded Internet Access Q1 No 07/30/2025 Internet Access Q2 Not on file 07/30/2025 Sex and Gender Information Value Date Recorded Sex Assigned at Male 09/06/2022 10:17 AM EDT Legal Sex Male 10:17 AM EDT Gender Identity Male 09/06/2022 10:17 AM EDT Sexual Orientation Choose not to disclose 2021 10:17 AM EDT Last Filed Vital Signs Vital Sign Reading Time Taken Comments Blood Pressure 126/70 07/30/2025 9:59 AM EDT Pulse 70 07/30/2025 9:59 AM EDT Temperature 36.6 C (97.9 F) 07/30/2025 9:59 AM EDT Respiratory Rate 20 07/30/2025 9:59 AM EDT Oxygen Saturation 98% 07/30/2025 9:59 AM EDT Inhaled Oxygen Concentration - - Weight 98 kg (216 lb 2 oz) 07/30/2025 9:59 AM ED T Height 175.3 cm (5' 9 ) 07/30/2025 9:59 AM EDT Body Mass Index 31.92 07/30/2025 9:59 AM EDT Plan of Treatment Health Maintenance Due Date Last Done Comments CT Colonography 1958 FIT DNA/Cologuard 1958 FIT 1958 FOBT 1958 Sigmoidoscopy 1958 Diabetes: Foot Exam 1968 Eye Exam 1968 COVID-19 Vaccine ( season) 2025 09/06/2022, 03/16/2022, 01/28/2021 Diabetes: Hemoglobin A1C 10/29/2025 025, 01/04/2025, 01/04/2025, Additional history exists Alcohol/Substance Use Screening 01/04/2026 01/04/2025 Diabetes: Urine Protein Screening 01/04/2026 01/04/2025, 11/17/2023, 10/26/2021, Additional history exists Lipid Panel 01/04/2026 01/04/2025, 11/07, 11/17/2023, Additional history exists Depression Monitoring 01/27/2026 07/30/2025, 025 SDOH Screening 07/30/2026 07/30/2025 Tobacco Screening 07/30/2026 07/30/2025 Colonoscopy 01/15/2030 01/15/2025 Colorectal Cancer Screening 01/15/2030 DTaP/Tdap/Td Vaccines (3 - Td or Tdap) 07/30/2035 07/30/2025, 07/29/2014 Hepatitis B Vaccines Completed 10/27/2017, 10/08/2015, 07/29/2014 Pneumococcal Vaccine: 50+ Years Completed 06/08/2023, 07/29/2014 RSV Patients and Patients Aged 60 years or older Completed 07/23/2024 Zoster Vaccines Completed 07/23/2024, 06/08/2023 Hepatitis C Screening Completed 01/04/2025 , 01/07/2023, 10/26/2021, Additional history exists Influenza Vaccine Completed 07/30/2025, , 10/12/2021, Additional history exists HIB Vaccines Aged Out [...] patient's age to complete this topic Meningococcal B Vaccine Aged Out No l onger eligible based on patient's age to complete [...] Blood Pressure 126/70(2024 9:59 AM EDT) No Rainer Bishop PharmD Record your blood pressure once per day Blood Pressure No Mandi Murdock PharmD Patient will adhere to medication regimen General No Mandi Murdock PharmD Hemoglobin A1c < 7 Result Component 8(07/30/2025 10:02 AM EDT) No Rainer Bishop PharmD Record your blood sugar as directed Result Component No Mandi Murdock PharmD Procedures Procedure Name Priority Date/Time Associated Diagnosis Comments POCT GLYCATED HEMOGLOBIN, TOTAL Routine 07/30/2025 10:02 AM EDT Type 2 diabetes mellitus without complication, without long-term current use of insulin (CMS/HCC) POCT GLUCOSE Routine 07/30/2025 10:02 AM EDT Type 2 diabetes mellitus without complication, without long-term current use of insulin (CMS/HCC) HM COLONOSCOPY Routine 01/15/2025 HEPATITIS C AB W/REFL TO HCV RNA, QN, PCR Routine 01/04/2025 12:21 PM EST Type 2 diabetes mellitus without complication, without long-term current use of insulin (CMS/HCC) Essential hypertension Hyperlipidemia LDL goal <70 Obstructive sleep apnea Stenosis of right carotid artery Elevated TSH History of squamous cell carcinoma Healthcare maintenance ALBUMIN, RANDOM URINE W/CREATININE Routine 01/04/2025 12:21 [...] complication, without long-term current use of insulin ([facility]) Essential hypertension Hyperlipidemia LDL goal <70 Obstructive sleep apnea Stenosis of right carotid artery Elevated TSH History of squamous cell carcinoma Healthcare maintenance from Last 3 Months or Most Recently Relevant to Health Maintenance Results * (ABNORMAL) POCT Hgb A1c (07/30/2025 10:02 AM EDT) Pathologist [facility] Hemoglobin A1C 8.0(A) 4.0 - 5.7 % QC Media Lot # [id number] Lot# Expiration Date Blood 07/30/2025 10:0 2 AM EDT Beckie Danielle DO POINT OF CARE TEST ENTER/PRIYA T ORDERABLES Final Result * (ABNORMAL) POCT Glucose (07/30/2025 10:02 AM EDT) [facility] Glucose Blood, POC 214(A) 60 - 200 mg/dL QC Media Lot # [id number] Lot# Expiration Date 504 Blood Capillary blood specimen / Unknown 07/30/2025 10:02 AM EDT Beckie Danielle DO POINT OF CARE TEST ENTER/PRIYA T ORDERABLES Final Result * Hm Colonoscopy (01/15/2025) [facility] Colonoscopy Normal Normal Narrative Waleska Fernandez - 01/15/2025 Recommended 5 years . see external hospital admission note on 01/15/2025 Historical Provider HEALTH MAINTENANCE Final Result * Albumin, Random Urine W/Creatinine (01/04/2025 12:21 PM EST) [facility] Creatinine, Urine 305.99 mg/dL [facility] Microalbumin Urine 20.0 mg/L [facility] Microalbum Creatinine Ratio Ur 6.5 <30 ug/mg cr [facility] Comment:Albumin/Creatinine R atio Reference Ranges: Normal: < 30 ug/mg creatinine Microalbuminuria: 30 - 300 ug/mg creatinineClinical Albuminuria: > 300 ug/mg creatinine Urine (Urine, Random) 01/04/2025 12:21 PM EST 01/04/2025 1:14 PM EST Beckie Danielle LAB URINE ORDERABLES Final R ult Performing Organization Address [facility] Co de Phone Number [facility] [address] [place] [phone] * Hepatitis C Antibody with Reflex to HCV, RNA, Quantitative, Real-Time PCR (01/04/2025 12:21 PM EST) Hepatitis C Antibody Nonreactive Nonreactive [facility] Comment:Antibodies to HCV no t detected; does not exclude early acuteHCV infection. Blood Venous blood specimen / Unknown 01/04/2025 12:21 PM EST 01/04/2025 1:24 PM EST Beckie Danielle LAB BLOOD ORDERABLES Final R [facility] Performing Organization Address [facility] Co de Phone Number [facility] [address] [place] [phone] * (ABNORMAL) Lipid Panel, Standard (01/04/2025 12:21 PM EST) Triglycerides 463(H) <150 mg/dL [facility] Comment:Slight Lipemia.Jorge able Triglyceride: less than 150 mg/dLBorderline High Triglyceride 150-199 mg/dLHigh Triglyceride: 200-499 mg/dLVery High Triglyceride: greater than or equal to 5OO mg/dL Cholesterol 195 <200 mg/dL [facility] Comment:Desirable Cholestero l: less than 200 mg/dLBorderline High Cholesterol: 200-239 mg/dLHigh Cholesterol: greater than 239 mg/dL LDL Cholesterol Calculated TNP <100 mg/dL [facility] Comment:Unable to calculate the LDL. The formula of Friedwald,Deluca, and Malini is only valid if the triglycerides areless than 400 mg/dl. HDL Cholesterol 35(L) >40 mg/dL [facility] Comment:Desirable HDL: great er than 40 mg/dL Note: This HDL assay may give artificially low results in patients with liver disease. Blood Venous blood specimen / Unknown 01/04/2025 12:21 PM EST 01/04/2025 1:24 PM EST us Beckie Danielle DO LAB BLOOD ORDERABLES Final R esult [facility] [address] [place] [phone] [phone] from Last 3 Months or Most Recently Relevant to Health Maintenance Insurance [employer] (O D-SNP) [employer] [id number] [address] [place] [address] Care Teams Certified Shorthand Reporter Relationship Specialty Start Date End Date Beckie Danielle DO [address] [place] [address] PCP - General Family Medicine 11/28/13
--- OUTSIDE RECORDS SUMMARY | 2025-10-01 08:49 | XMS_ITS | Encounter Summary ---
Author Organization [employer] Address [address] [facility] 7t [place] [address] Care Team Providers Care Lot Porter Name Role Phone Beckie Danielle DO Primary Care Provider + [phone] Reason for Visit * Reason Comments Med Refill Encounter Details Date Type Department Care Team ([facility] st Contact Info) Description 09/10/2024 Refill [facility] [address] [place], [place] [phone] Beckie Danielle DO [address] [place] [address] Type 2 diabetes mellitus without complication, without long-term current use of insulin ([facility]) Social History Tobacco Use Types Packs/Day [...] documented as of this encounter Care Teams Lot Porter Relationship Specialty Start Date End Date Beckie Danielle DO [address] [place] [phone] PCP - General Family Medicine 11/28/13 documented as of this encounter
--- OUTSIDE RECORDS SUMMARY | 2025-10-01 08:49 | XMS_ITS | Encounter Summary ---
Author Organization [employer] Address [address] [facility] 7t [place] [address] Care Team Providers Care Coremaker Helper Name Role Phone Beckie Danielle DO Primary Care Provider DelRainer ovalle PharmD Unavailable Unavail able Mandi Murdock PharmD Unavailable Reason for Visit * Reason Comments Med Refill Encounter Details Date Type Department Care Team (Late st Contact Info) Description 01/14/2023 Refill [facility] [address] [place] [address] Beckie Danielle DO [address] [place] [address] Erectile dysfunction, unspecified erectile dysfunction type Social [...] 9:59 AM EDT) No Rainer Bishop PharmD Hemoglobin A1c < 7 Result Component 8(07/30/2025 10:02 AM EDT) No Rainer Bishop, PharmD documented as of this encounter Visit Diagnoses Diagnosis Erectile dysfunction, unspecified erectile dysfunction type documented in this encounter Additional Health Concerns Assessment Noted Time PHQ-9 Depression Total Score: 0 01/08/20 10:31 AM EST documented as of this encounter Care Teams Coremaker Helper Relationship Specialty Start Date End Date Beckie Danielle DO [address] [place] [phone] PCP - General Family Medicine 11/28/13 Rainer Bishop, PharmD [address] [place] [phone] Pharmacist Internal Medicine 01/12/23 06/07/23 Mandi Murdock PharmD [address] [place] [phone] Pharmacist Internal Medicine 06/08/23 05/29/24 documented as of this encounter
--- OUTSIDE RECORDS SUMMARY | 2025-10-01 08:49 | XMS_ITS | Encounter Summary ---
Author Organization [employer] Address [address] [facility] 7t [place] [address] Care Team Providers Care Senior Catering Sales Manager Name Role Phone Beckie Danielle DO Primary Care Provider + [phone] Encounter Details Date Type Department Care Team (Late st Contact Info) Description 03/07/2025 Orders Only [facility] [address] [place] [address] ProviderNoe MD Social History Tobacco Use Types [...] Blood Pressure 126/70(2024 9:59 AM EDT) No DellogonoRainer, PharmD Record your blood pressure once per day Blood Pressure No Murtaza Murdockyssa, PharmD Patient will adhere to medication regimen General No PuiaMurtazaMandi, PharmD Hemoglobin A1c < 7 Result Component 8(07/30/2025 10:02 AM EDT) No DellogRainer tse, PharmD Record your blood sugar as directed [...] documented as of this encounter Care Teams Senior Catering Sales Manager Relationship Specialty Start Date End Date Beckie Danielle DO [address] [place] [phone] PCP - General Family Medicine 11/28/13 documented as of this encounter
== END 2025-10-01 08:55 | disposition home or self-care (01) ==
LOC: HO.HCS 08:31
PROVIDERS: PCP Family Medicine; Visit Provider Nurse Practitioner Family
DX: R94.31 Abnormal electrocardiogram [ECG] [EKG] (principal); I77.810 Thoracic aortic ectasia; I10 Essential (primary) hypertension; R00.2 Palpitations; I65.23 Occlusion and stenosis of bilateral carotid arteries
CPT/HCPCS: 99214; G2211

== ENCOUNTER → 2025-10-01 08:30 | Outpatient (BNVA) | payer MEDICARE, MEDICAID, SELFPAY | PROVIDERS: PCP Family Medicine; Visit Provider Nurse Practitioner Family | DX: R94.31 Abnormal electrocardiogram [ECG] [EKG] (principal); I77.810 Thoracic aortic ectasia; I10 Essential (primary) hypertension; R00.2 Palpitations; I65.23 Occlusion and stenosis of bilateral carotid arteries | CPT/HCPCS: 99212 ==